=== PATIENT | female | born 1945 | race Caucasian/White ===

== ENCOUNTER 2022-09-09 08:41 | Observation (INO) ==
--- NOTE | 2022-08-14 11:12 | PAT Medication Instructions ---
Medication Instructions Date of Service August 14, 2022 Home Medications atorvastatin 20 mg tablet 20 mg PO QPM carvedilol 12.5 mg tablet 12.5 mg PO Q12H famotidine 10 mg tablet 10 mg PO BID levothyroxine 100 mcg capsule 100 mcg PO QAM multivitamin (Daily Multi-Vitamin tablet) 1 tab PO BID cholecalciferol (vitamin D3) 125 mcg (5,000 unit) tablet (Vitamin D3) 50,000 unit PO MONTHLY propylene glycol 0.6 % eye drops (Systane Complete) 1 drp ophthalmic (eye) QAM simethicone 125 mg capsule (Gas Relief (simethicone)) 125 mg PO BID acetaminophen 500 mg tablet (Tylenol Extra Strength) 500 - 1,000 mg PO Q8H PRN Pain ibuprofen 400 mg tablet 400 mg PO Q6H PRN Pain sennosides 8.6 mg tablet (Senna Laxative) 8.6 mg PO BID Continue as directed cholecalciferol (vitamin D3) 125 mcg (5,000 unit) tablet (Vitamin D3) 50,000 unit PO MONTHLY ASK your surgeon for instructions ibuprofen 400 mg tablet 400 mg PO Q6H PRN Pain DO NOT take the morning of surgery multivitamin (Daily Multi-Vitamin tablet) 1 tab PO BID simethicone 125 mg capsule (Gas Relief (simethicone)) 125 mg PO BID sennosides 8.6 mg tablet (Senna Laxative) 8.6 mg PO BID Take morning of surgery With a small sip of water, OTHERWISE NOTHING TO EAT OR DRINK AFTER MIDNIGHT: carvedilol 12.5 mg tablet 12.5 mg PO Q12H famotidine 10 mg tablet 10 mg PO BID levothyroxine 100 mcg capsule 100 mcg PO QAM propylene glycol 0.6 % eye drops (Systane Complete) 1 drp ophthalmic (eye) QAM acetaminophen 500 mg tablet (Tylenol Extra Strength) 500 - 1,000 mg PO Q8H PRN Pain (if needed) Take evening before surgery atorvastatin 20 mg tablet 20 mg PO QPM carvedilol 12.5 mg tablet 12.5 mg PO Q12H famotidine 10 mg tablet 10 mg PO BID multivitamin (Daily Multi-Vitamin tablet) 1 tab PO BID simethicone 125 mg capsule (Gas Relief (simethicone)) 125 mg PO BID acetaminophen 500 mg tablet (Tylenol Extra Strength) 500 - 1,000 mg PO Q8H PRN Pain (if needed) sennosides 8.6 mg tablet (Senna Laxative) 8.6 mg PO BID Other Notes If you have any questions please call us at [phone] or [phone] or [phone] or [phone]
--- NOTE | 2022-08-20 12:02 | Anesthesiology Consultation ---
Date of Service August 20, 2022 Assessment & Plan (1) Encounter for pre-operative examination: - awaiting PCP clearance. - Outpatient joint assessment: Patient is currently scheduled for inpatient pathway. If re-evaluated pending system levels during current pandemic/surgeon requests outpatient pathway, patient is not acceptable candidate for outpatient joint program from anesthesia standpoint. - Case discussed with Dr. Gay who advised no cardiology clearance needed, however pt is to have PCP clearance. Surgeon's office made aware. Message left for pt to return call. Chart Review Chart Review: Pending: Refer to Additional Notes / Consult section and Patient seen in Pre Admission Testing Teaching & Discussion Pre-Anesthesia Teaching/Discussion Notes: Instructed NPO after midnight before surgery, except medications with 15 cc of water. Medication instructions provided according to the PAT guidelines. History Surgery Operation Date: 09/09/22 07:00 Proposed Procedures p Left Total Knee Arthroplasty - Samuel Mosher MD Height/Weight Height: 5 ft 6 in Weight: 91.626 kg Allergies Allergy/AdvReac Type Severity Reaction Status Date / Time No Known Allergies Allergy Verified 08/05/22 09:45 Medications Home Medications Medication Instructions Recorded Confirmed Last Taken atorvastatin 20 mg tablet 20 mg PO QPM 02/18/21 08/05/22 02/24/22 carvedilol 12.5 mg tablet 12.5 mg PO Q12H 02/18/21 08/05/22 02/24/22 famotidine 10 mg tablet 10 mg PO BID 02/18/21 08/05/22 02/24/22 levothyroxine 100 mcg capsule 100 mcg PO QAM 02/18/21 08/05/22 02/25/22 multivitamin (Daily Multi-Vitamin 1 tab PO BID 02/18/21 08/05/22 02/22/22 tablet) cholecalciferol (vitamin D3) 125 50,000 unit PO MONTHLY 02/18/22 08/05/22 02/24/22 mcg (5,000 unit) tablet (Vitamin D3) propylene glycol 0.6 % eye drops 1 drp ophthalmic (eye) QAM 02/18/22 08/05/22 02/24/22 (Systane Complete) simethicone 125 mg capsule (Gas 125 mg PO BID 02/18/22 08/05/22 02/23/22 Relief (simethicone)) acetaminophen 500 mg tablet 500 - 1,000 mg PO Q8H PRN Pain 08/05/22 08/05/22 Unknown (Tylenol Extra Strength) ibuprofen 400 mg tablet 400 mg PO Q6H PRN Pain 08/05/22 08/05/22 Unknown sennosides 8.6 mg tablet (Senna 8.6 mg PO BID 08/05/22 08/05/22 Unknown Laxative) Past Medical History Medical History (Updated 08/20/22 @ 12:21 by Kathleen Knowles PA-C) GERD (gastroesophageal reflux disease) controlled, stable per pt History of atrial fibrillation "related to thyroid issues"-resolved yrs ago upon thyroid correction per pt, per pt was d/c from cardiology at that time-follows with PCP History of COVID-19 03/2022 > resolved Hyperlipidemia Hypertension controlled, stable per pt-home readings 110-120s/80s; white coat HTN Hypothyroidism Hx thyroid irradiation Neuropathy toes bilat Obesity Patient denies h/o stroke, seizures, heart attack, heart failure, DM, blood clots or blood transfusions. Exercise / Class Metabolic Activity II 4-5 Yardwork/Stairs/Walk up hill (denies chest discomfort or shortness of breath with 1 FOS) Past Family History Family History Mother Liver cancer Colon cancer Diabetes Father Colon cancer Lung cancer Other No family history of adverse response to anesthesia Past Surgical History Surgical History History of appendectomy History of bilateral tubal ligation History of colonoscopy History of thyroid irradiation History of tooth extraction Hx of bilateral cataract extraction Hx of tonsillectomy Hx of wisdom tooth extraction Past Anesthesia History No Hx of Anesthesia Complications and No Family Hx of Anesthesia Complications History of PONV No Hx of PONV and Hx of Motion Sickness Social History Smoking Status: Former smoker tobacco type: cigarettes Do You Dip or Chew Tobacco: No Smoking End Date: 12 YEARS AGO Hx Alcohol Use: Yes alcohol intake frequency: holidays/special occasions only substance use type: does not use Review of Systems Occasional snoring, denies witnessed apneas. Patient denies chest pain, shortness of breath, dyspnea on exertion, fever, chills, cough, wheezing, or palpitations. Physical Exam Vital Signs Vitals BP 150/92 P 64 TEMP 98.3 SP02 99% on RA RESP 17 Physical Full cervical extension range of motion without pain TMD 3.5 finger breadths Mallampati Score 3 Dentition: full upper dentures; denies chipped or loose teeth, caps/crowns, implants or bridges Lungs: normal respiratory effort. Clear throughout to auscultation, no adventitious breath sounds Cardiac: regular rate and rhythm, no murmurs noted Carotid arteries: negative bruit bilat Lab Results Anesthesia Preop Results Results Anesthesia Widget: WBC 8.11 K/ul (4.8-10.8) 08/20/22 Hgb 12.4 g/dl (12.0-16.0) 08/20/22 Hct 35.5 % (34.1-44.9) 08/20/22 Plt 278 K/uL (130-400) 08/20/22 Na 143 mmol/L (136-145) 08/20/22 K 3.6 mmol/L (3.5-5.1) 08/20/22 Cl 110 mmol/L (98-107) H 08/20/22 CO2 25 mmol/L (21-32) 08/20/22 BUN 16 mg/dl (6-23) 08/20/22 Creat 0.81 mg/dl (0.6-1.2) 08/20/22 Glucose Level 162 mg/dl (70-99(Fasting)) H 08/20/22 PT 10.8 Seconds (9.0-12.0) 08/20/22 PTT 24.7 Seconds (21.0-31.0) 08/20/22 INR 1.0 (0.9-1.1) 08/20/22 Blood Type AB Positive 08/20/22 Antibody Screen NEGATIVE 08/20/22 Testing Electrocardiogram Date: 08/20/22 NSR, rate 63 bpm Left axis deviation Non-specific intraventricular conduction block Chest X-Ray Date: 08/20/22 No lines and tubes are seen. Calcified aortic knob is seen. The lungs are clear. No evidence of pleural effusion or pneumothorax. IMPRESSION: No acute chest disease. COVID-19 Risk Screen Screening Information COVID-19 Screen Date: 08/20/22 Exposure 21 Days Family/Household +COVID Last 21 Days: No Exposure 10 Days Any COVID Exposure Last 10 Days: No Symptoms Last 10 Days Experienced COVID Sx Last 10 Days: No + COVID 0-90 Days COVID + in Last 0-90 Days: No
--- NOTE | 2022-09-08 08:38 | History and Physical Report ---
CHIEF COMPLAINT: Bilateral knee pain and discomfort, left side greater than right. HISTORY OF PRESENT ILLNESS: The patient is a 76-year-old female, who now presents for a followup and surgical treatment of her knees. She has got a long history of bilateral knee pain and discomfort, left side a bit worse than right. We have been putting shots in her knees intermittently, which help ed to some degree. This has become less successful. The left knee has been bothering her more than right. On the right side, the shots seem to be still working. The more she is up in her leg, the mo re it hurts. She would like to have her left knee replaced. PAST MEDICAL HISTORY: Past medical history is significant for: 1. Hypertension. 2. Elevated cholesterol. 3. Obesity with a BMI of 33. 4. Hypothyroidism. 5. Gastroesophageal reflux disease. 6. Oral surgery. PAST SURGICAL HISTORY: Includes: 1. Appendectomy. 2. Tubal ligation. 3. Radiation treatment to the thyroid. 4. Cataract surgery. 5. Back surgery. ALLERGIES: None. CURRENT MEDICATIONS: Include: 1. Atorvastatin. 2. Carvedilol. 3. Vitamin D3. 4. Losartan. 5. Famotidine. 6. Levothyroxine. 7. Multivitamin. 8. Naproxen. 9. Systane eye drops. 10. Simethicone. SOCIAL HISTORY: This is a 76-year-old female. She drinks occasional wine. Does not smoke. FAMILY HISTORY: Noncontributory. REVIEW OF SYSTEMS: Negative for diabetes, but does have an elevated blood glucose. Denies any chest pain or shortness of breath. No history of DVT or PE. No known bleeding problems. PHYSICAL EXAMINATION: GENERAL: Shows a pleasant middle-aged female, looks in reasonably good health. HEENT: Benign. NECK: Supple. No lymphadenopathy. LUNGS: Clear to auscultation. HEART: Has a regular rate and rhythm. ABDOMEN: Soft, nontender, and nondistended. EXTREMITIES: Grossly neurovascularly intact except as follows. Examination of both knees revealed the patient walks with a bit of waddling gait. She has got varus alignment to both knees. She is tender over the medial joint line bilaterally. Range of motion is p retty symmetric with near full extension to 125 degrees of flexion. No instability. No particular p ain with hip motion. X-RAYS: X-rays of both knees reveal advanced bilateral medial compartment DJD. She has complete los s of the medial joint space bilaterally. She has got subchondral sclerosis. ASSESSMENT: This is a 76-year-old female with advanced bilateral knee degenerative joint disease. S he has failed conservative treatment. The left knee is bothering her more than right and she would l charu to proceed with surgical treatment. PLAN: We are going to proceed with left knee replacement. The risks and benefits of this procedure were explained to the patient to include, but not limited to DVT, PE, , infection, neurological injury, vascular injury, bleeding problem, pain, limited range of motion, stiffness, failure to relie ve her symptoms, incomplete relief of symptoms, need for further surgery in the future, etc. The pat ient understands and desires to proceed. Informed consent was obtained. The patient does have a history of atrial fibrillation, but thought that this was related to her thyr oid. Since she has been on medicine, her EKG has been in normal sinus rhythm. Her blood glucose is elevated. She is getting cleared by her primary care doctor. We will likely us e some insulin in the perioperative period to manage her blood glucose. Job ID: [id number]
[~2022-09-09 08:41] MED LIST: ACETAMINOPHEN 500 MG TAB PO SCH; BUPIVACAINE 0.25% PF 30 ML VIAL ONE; BUPIVACAINE 0.5 % 5 MG/1 ML PF 10ML VIAL ONE; CeleBREX 200 MG CAP PO SCH; DEXAMETHASONE SOD INJ 4 MG/ML VIAL ONE; EPINEPHrine INJ 1 MG/ML AMP ONE; FAMOTIDINE 20 MG TAB PO SCH; LIDOCAINE 2% MPF LOCAL 5 ML VIAL INFIL ONE; LR 60ML/HR IV SCH; METOCLOPRAMIDE HCL 10 MG TABLET PO SCH; MIDAZOLAM HCL 1 MG/ML 2ML VIAL ONE; ONDANSETRON INJ 2 MG/ML 2 ML VIAL ONE; PROPOFOL IV EMULSION 10 MG/ML 20 ML VIAL IV ONE; TRANEXAMIC ACID 1,000 MG **IV Intra-op IV SCH; ceFAZolin 2000MG 2,000 MG/15 ML SYR IV SCH; fentaNYL citrate PF 100 MCG/2 ML VIAL ONE
--- NOTE | 2022-09-09 08:42 | History & Physical Bridge Note ---
Date of Service September 09, 2022 History & Physical Bridge Note I have examined the patient, reviewed the History & Physical and in the interval since the performance of the History & Physical I have noted the following changes of clinical significance: no changes noted
[2022-09-09] MEDS ORDERED: BUPIVACAINE/EPINEPHRINE 0.25% 1:200,000 30 ML VIAL ONE ×2 (10:36→11:15)
[2022-09-09] MEDS ORDERED: SODIUM CHLORIDE 0.9% PF 50 ML VIAL ONE (10:36)
[2022-09-09] MEDS ORDERED: BUPIVACAINE LIPOSOME 1.3% 266 MG/20 ML VIAL ONE (10:37)
[2022-09-09] MEDS ORDERED: fentaNYL citrate PF 100 MCG/2 ML VIAL IV PRN (11:14)
[2022-09-09] MEDS ORDERED: ONDANSETRON INJ 2 MG/ML 2 ML VIAL IV PRN ×2 (11:14→14:15)
[2022-09-09] MEDS ORDERED: ATROPINE SULFATE 0.1 MG/ML 10ML SYR IV PRN (11:14)
[2022-09-09] MEDS ORDERED: ePHEDrine sulfate 50 MG/ML AMP IV PRN (11:14)
[2022-09-09] MEDS ORDERED: ETOMIDATE 2 MG/ML 20 ML VIAL IV ONE (12:29)
--- NOTE | 2022-09-09 12:45 | Operative Report ---
PG Post Operative Report Pre & Post Diagnosis Operation Date: 09/09/22 10:40 Pre-Op Diagnosis: Left Knee Osteoarthritis Post-Op Diagnosis: Left Knee Osteoarthritis I identified the patient and participated in the time-out.: Yes Procedure Operation Date: 09/09/22 10:40 Actual Procedures p Left Total Knee Arthroplasty, Cemented(Left) - Samuel Mosher MD Surgeon Samuel Mosher MD [employer] David Robert PA-C Estimated Blood Loss 50 Findings Consistent with Post-Op Diagnosis Operative findings reveal advanced left knee DJD. She had extensive grade 4 [id number] disease and eburnation of the entire medial compartment. She had some spotty grade 4 changes to the patellofemoral joint as well as the lateral compartment. Moderate-sized joint effusion. Fixed varus deformity to the knee. Slight flexion contracture. Fluids 1000 cc Specimens Left knee sent for pathology. Drains None Anesthesia Type Spinal MAC Complications none Disposition Accompanied Patient To Recovery: No Indications Patient is 76-year-old fairly active female who is at a 7-year history of increasing bilateral knee pain discomfort. She been through extensive conservative. The patches became less successful. X-rays show a bit bilateral knee arthritis. She elected proceed with left total knee arthroplasty. Description of Procedure Operative implants consist of: 1. Biomet Vanguard size 67.5 left posterior stabilized femoral component. 2. Biomet size 71 tibial tray. 3. 10 mm posterior stabilized polyethylene insert. 4. 31 x 8 all poly patella. The patient was taken to the operating, identified, and placed on the operating table supine position with all contractors were appropriately padded. IV antibiotics by anesthesia team. A spinal anesthetic and adductor canal block had been provided in the holding area. Suarez catheter was placed in sterile fashion. Left doctor was then placed in the left lower extremity then prepped and draped in usual sterile fashion. The left leg was elevated exsanguinated with use of an Esmarch and tourniquet placed at 300 mmHg. An anterior approach the left knee was then performed a longitudinal incision centered over the patella. Sharp dissection was down through subcutaneous tissue down to the extensor mechanism. A medial parapatellar arthrotomy incision was made. Some subperiosteal dissection was carried out medially. The fat pad was resected from the patella tendon. The lateral patellofemoral ligament was released. Patella subluxated laterally and the knee was flexed with the osteophytes taken of distal femur. The ACL and PCL were then released from the distal femur and tibia subluxated anteriorly. The external treatment line was then placed the anterior face of the tibia and adjusted 14 mm medially. Proximal tibial cut was made to move millimeter bone from the most deficient aspect medial tibial plateau. Some osteophytic rights were taken off medial and posterior medially. The tibia sized to a size 71. Attention drawn to the femur. The distal femur 10 with a sharp drill. The intramedullary canal was suction. A 5 degree left distal femoral cutting block was pinned in place. Distal cut was made to take an additional 3 mm of bone off the distal femur. The femur was then sized to a size 67.5. The AP cutting block was pinned parallel to the epicondylar axis which was 5 degrees external rotation. The anterior, anterior chamfer, posterior cut, posterior chamfer cuts were made. The box cutting guide was placed in a just slightly lateral and the box cut was made. The knee was flexed. The remnants of the medial and lateral menisci were excised. The osteoarticular posterior aspect of the femur. A trial femoral component was placed. The tibial tray was pinned in maximum external rotation and the drill and stem punch were used. Defect in the proximal tibia and the tibial tray. The knee was then trialed the 10 mm insert most peripherally. Attention drawn the patella. The patella was cleaned of all soft tissues. Patella thickness measured 23 mm in thickness was cut down to 14. Was sized to a size 31 patella. The lug holes were drilled for 31 patella. The lateral osteophytes removed. Patella button was placed. Knee was taken through range of motion patella tracked nicely with no thumbs test. Tension do not place and permanent components. All trial components were removed. Bone plug was placed in the disc room to limit blood loss. All batch Palacos G cement was mixed. Biomet Vanguard size 67.5 left posterior stabilized femoral component, size 71 tibial tray, 10 mm posterior stabilized polyethylene insert, and a 31 x 8 all-poly patella then cemented in place. Knee was brought out into full extension until cement hardened. Final cement check was then performed. The pericapsular tissues were injected with a total of 100 cc of combination of 20 cc of Exparel, 30 cc normal saline, 50 cc of quarter percent Marcaine with epinephrine. Patient did receive 1 g tranexamic acid. The chart was then let down for final tourniquet time of 55 minutes. Hemostasis reduced electrocautery. The extensor mechanism then closed with a combination of 1 PDS suture and then 1 Vicryl suture in a [id number] fashion. The extensor mechanism checked to be intact with subcutaneous tissue then closed with 2 Dexon suture in a buried interrupted fashion skin was closed skin carlos. Leg was then cleaned and dried and a sterile dressing with Xeroform, 4 fours, sterile cast padding, Forest bandage applied. Patient then transferred to the recovery room in stable condition. The patient tolerated the procedure well and there were no complications. David Robert, my physician assistant food service director, was present for the entire procedure. His assistance was essential and required for appropriate patient positioning, prepping and draping, surgical exposure, performing the technical details of the operation, placement the implants, closure of the wound, and placement of the sterile bandage. I attest to the content of the Intraoperative Record and any orders documented therein. Any exceptions are noted below.
[2022-09-09] MEDS ORDERED: hydrALAZINE HCL 20 MG/ML VIAL ONE (13:37)
[2022-09-09] MEDS ORDERED: hydrALAZINE HCL 20 MG/ML VIAL IV ONE (13:38)
--- NOTE | 2022-09-09 13:51 | Anesthesiology Progress Note ---
Date of Service September 09, 2022 Anesthesia Post Procedure Vital Signs Vital Signs: Temp Pulse Resp BP BP Pulse Ox O2 Del Method 09/09/22 13:20 47 L 14 179/85 H 99 Nasal Cannula 09/09/22 13:10 47 L 13 163/86 H 99 Nasal Cannula 09/09/22 13:00 47 L 14 167/82 H 99 Nasal Cannula 09/09/22 12:50 46 L 12 170/79 H 100 Oxymask 09/09/22 12:41 36.4 C L 53 L 10 L 147/77 H 98 Oxymask 09/09/22 09:10 36.8 C 63 20 190/107 H 96 Room Air O2 Flow Rate 09/09/22 13:20 2 09/09/22 13:10 2 09/09/22 13:00 2 09/09/22 12:50 3 09/09/22 12:41 6 09/09/22 09:10 Transfer of Care Handoff Completed per policy Notes Mental Status: alert / awake / arousable and participated in evaluation Nausea / Vomiting: adequately controlled Pain: adequately controlled Airway Patency, RR, SpO2: stable & adequate BP & HR: stable & adequate Hydration State: stable & adequate Neuraxial Anesthesia: was administered and sensory block is resolving Anesthetic Complications: no major complications apparent and Pt Satisfied with anesthetic care
[2022-09-09] MEDS ORDERED: GLUCAGON FOR INJ 1 MG VIAL SQ PRN (14:15)
[2022-09-09] MEDS ORDERED: METOCLOPRAMIDE HCL INJ 5 MG/ML 2 ML VIAL IV PRN (14:15)
[2022-09-09] MEDS ORDERED: ALUMINUM/MAGNESIUM SUSP 30 ML UDC PO PRN (14:15)
[2022-09-09] MEDS ORDERED: oxyCODONE HCL IR 5 MG TAB (IMMEDIATE RELEASE) PO PRN (14:15)
[2022-09-09] MEDS ORDERED: DEXTROSE 50% 50 ML SYRINGE IV PRN (14:15)
[2022-09-09] MEDS ORDERED: CARBOHYDRATES FOR HYPOGLYCEMIA PO PRN (14:15)
[2022-09-09] MEDS ORDERED: MAGNESIUM HYDROXIDE SUSP 30 ML UDC PO PRN (14:15)
[2022-09-09] MEDS ORDERED: GLUCOSE 10 TAB/TUBE PO PRN (14:15)
[2022-09-09] MEDS ORDERED: GLUCOSE 40% GEL 15 GM TUBE PO PRN (14:15)
[2022-09-09] MEDS ORDERED: bisacodyL 10 MG SUPP PR PRN (14:15)
[2022-09-09] MEDS ORDERED: HYDROmorphone INJ 0.5 MG/0.5 ML SYR IV PRN (14:15)
[2022-09-09] MEDS ORDERED: NALOXONE HCL 0.4 MG/1 ML VIAL/CARP IV PRN (14:15)
[2022-09-09] MEDS ORDERED: PHARMACY GLYCEMIC MGMT CONSULT PRN (14:15)
--- NOTE | 2022-09-09 14:35 | XRay Report ---
XR knee LT 1 or 2V routine CLINICAL HISTORY: Postoperative evaluation. COMPARISON: Knee radiographs February 17, 2022. FINDINGS: Alignment of the total left knee arthroplasty is anatomic. No periprosthetic fracture or u nexpected radiopaque foreign body. There are skin carlos. IMPRESSION: Expected findings following total left knee arthroplasty. ACT 112: Negative or not required by law. Electronically signed by: Emilio Juarez M.D. 09/09/2022 2:33 PM
[2022-09-09] MEDS ORDERED: LANTUS PER UNIT CHARGE SQ ONE (15:30)
[2022-09-09] MEDS: SODIUM CHLORIDE 0.9% 1000ML 1,000 ML IV SCH (16:08)
[2022-09-09] MEDS: ACETAMINOPHEN 500 MG TAB PO SCH ×2 (16:09→21:31)
[2022-09-09] MEDS: carvediloL 12.5 MG TAB PO SCH ×2 (16:09→20:16)
[2022-09-09] MEDS: INSULIN ASPART PER UNIT CHARGE SC SCH ×2 (17:45→20:39)
[2022-09-09] MEDS: ASCORBIC ACID 500 MG TAB PO SCH (17:48)
[2022-09-09] MEDS: ceFAZolin 2000MG 2,000 MG/15 ML SYR IV SCH (17:48)
[2022-09-09] MEDS ORDERED: TRANEXAMIC ACID / 0.7% NACL 1,000 MG/100 ML BAG IV SCH (18:45)
[2022-09-09] MEDS: ASPIRIN 81 MG ECTAB PO SCH (20:14)
[2022-09-09] MEDS: DOCUSATE SODIUM 100 MG CAP PO SCH (20:15)
[2022-09-09] MEDS: FAMOTIDINE 10 MG TABLET PO SCH (20:15)
[2022-09-09] MEDS ORDERED: ATORVASTATIN 20 MG TAB PO SCH (21:00)
[2022-09-09] MEDS ORDERED: NON-FORMULARY MEDICATION (Multivitamin [Daily Multi-Vitamin] tablet) PO SCH (21:00)
[2022-09-09] MEDS ORDERED: SENNA 8.6 MG TAB PO SCH (21:00)
[2022-09-09] MEDS ORDERED: SIMETHICONE 125 MG PO SCH (21:00)
[2022-09-09] MEDS: KETOROLAC TROMETHAMINE 15 MG/ML VIAL IV SCH (21:31)
[2022-09-10] MEDS: SODIUM CHLORIDE 0.9% 1000ML 1,000 ML IV SCH (00:43)
[2022-09-10] MEDS: ceFAZolin 2000MG 2,000 MG/15 ML SYR IV SCH (03:51)
[2022-09-10] MEDS: KETOROLAC TROMETHAMINE 15 MG/ML VIAL IV SCH ×2 (03:51→08:29)
[2022-09-10] MEDS: ACETAMINOPHEN 500 MG TAB PO SCH ×2 (06:06→12:43)
[2022-09-10 06:21] LABS: Hemoglobin 11.5 g/dl (12.0-16.0); Mean Corpuscular Hemoglobin 31.9 pg (25.0-34.0); Mean Corpuscular Hgb Conc 34.8 g/dL (32.0-36.0); Mean Corpuscular Volume 91.4 fL (80.0-100.0); Mean Platelet Volume 9.2 fL (9.4-12.4); Platelet Count 282 K/uL (130-400); RDW Coefficient of Variation 12.1 % (11.5-14.5); RDW Standard Deviation 40.5 fL (36.4-46.3); Red Blood Count 3.61 M/uL (4.20-5.40); White Blood Count 15.41 K/ul (4.8-10.8)
[2022-09-10 06:38] LABS: BUN Creatinine Ratio 19.6 (10-20); Calcium 9.3 mg/dl (8.5-10.1); Creatinine Clr Calc Pharmacy 52.3 ml/min; Est GFR (African American) 61.4 ml/min; Potassium 3.9 mmol/L (3.5-5.1)
[2022-09-10 07:02] LABS: Estimated Average Glucose 134 mg/dl; Hemoglobin A1C 6.3 % (4.5-5.6)
[2022-09-10] MEDS: carvediloL 12.5 MG TAB PO SCH (08:27)
[2022-09-10] MEDS: DOCUSATE SODIUM 100 MG CAP PO SCH (08:27)
[2022-09-10] MEDS: ASCORBIC ACID 500 MG TAB PO SCH (08:27)
[2022-09-10] MEDS: ASPIRIN 81 MG ECTAB PO SCH (08:27)
[2022-09-10] MEDS: FAMOTIDINE 10 MG TABLET PO SCH (08:27)
[2022-09-10] MEDS: INSULIN ASPART PER UNIT CHARGE SC SCH ×2 (08:30→12:17)
[2022-09-10] MEDS ORDERED: LEVOTHYROXINE SODIUM 100 MCG TABLET PO SCH (09:00)
[2022-09-10] MEDS ORDERED: DOCUSATE SODIUM/SENNA 50/8.6MG TAB PO SCH (09:00)
[2022-09-10] MEDS ORDERED: MULTIVITAMIN TAB PO SCH (09:00)
--- NOTE | 2022-09-10 13:17 | Progress Notes ---
SUBJECTIVE: A 76-year-old female postoperative day 1 from a left knee replacement. She is doing pretty well. e denies any significant pain. Therapy went well. No chest pain or shortness of breath. She is hop ing to go home. OBJECTIVE: VITAL SIGNS: Temperature 36.6. Vital signs are stable. GENERAL: Shows a pleasant middle-aged female. She is sitting up in bed, talking to her and looks comfortable. LUNGS: Clear to auscultation. HEART: Regular rate and rhythm. ABDOMEN: Soft, nontender, nondistended. EXTREMITIES: Grossly neurovascularly intact except as follows. Examination of the left leg reveals the dressing to be clean, dry and intact. She can dorsiflex and plantarflex her foot appropriately. She can do a pretty good straight leg raise. LABORATORY DATA: Hemoglobin 11.5. Hematocrit 33.0. White cell count 15.41. ASSESSMENT: A 76-year-old white female postoperative day 1 from a left knee replacement, doing pretty well. Pain is controlled. She is neurologically intact. Knee is working pretty well. She is hoping to go [facility]. PLAN: 1. DVT prophylaxis includes thigh-high TEDs, SCDs, and aspirin twice a day. 2. PT/OT. Weight bear as tolerated. Left total knee protocol. 3. Pain control, doing okay with current pain regimen. 4. Disposition. Plan to discharge to home with some home health likely later today. Job ID: [id number]
--- NOTE | 2022-09-13 07:25 | Discharge Summary ---
Date of Service September 13, 2022 Discharge Data Procedures Performed Operation Date: 09/09/22 10:40 Actual Procedures p Left Total Knee Arthroplasty, Cemented(Left) - Samuel Mosher MD Hospital Course (1) Status post total left knee replacement: This is a 76 year old patient admitted on 09/09/22 and underwent total knee arthroplasty. She tolerated the procedure well and there were no complications. Transferred to the PACU post op and later to the orthopedic floor for further care. She was given ancef for antibiotic prophylaxis. She was also given JERRICA stockings, SCDs, and aspirin for DVT prophylaxis. Hemoglobin, hematocrit, and vital signs were monitored during her hospital stay and remained stable. Did not require any blood transfusions. There were no complications during her hospital stay. By post op day #1 the patient was tolerating a regular diet, pain was reasonably controlled with oral pain medicine, and she was participating in physical therapy. On post op day #1 the patient was discharged home and set up with home health care. She was given printed discharge instructions including prescriptions for extra strength tylenol, aspirin, cefadroxil, ketorolac, zofran, senokot, and oxycodone. Continue physical therapy, weight bearing as tolerated. Continue JERRICA stockings. Follow up approximately 2 weeks post op or sooner if there are problems or concerns. Coding Level of Care Code None Diagnoses Status post total left knee replacement Z96.652
[2022-10-05] MEDS ORDERED: CHOLECALCIFEROL 5,000 UNITS 125 MCG TAB PO SCH (09:00)
== END 2022-09-10 13:50 | disposition home health service (06) ==
LOC: 3E 08:41 → ASU 08:41

== ENCOUNTER 2023-06-30 07:08 | Observation (INO) ==
--- NOTE | 2023-05-29 14:21 | PAT Medication Instructions ---
Medication Instructions Date of Service May 29, 2023 Home Medications Medication Instructions Recorded aspirin 81 mg tablet,delayed 81 mg PO BID 45 days #90 tabs 09/07/22 release (Tami Low Dose Aspirin) ondansetron HCl 4 mg tablet 4 mg PO Q6 PRN nausea #20 tabs 09/07/22 sennosides 8.6 mg-docusate sodium 1 tab-cap PO DAILY #14 tabs 09/07/22 50 mg tablet (Senokot-S) atorvastatin 20 mg tablet 20 mg PO QPM carvedilol 12.5 mg tablet 12.5 mg PO Q12H famotidine 10 mg tablet 10 mg PO BID levothyroxine 100 mcg capsule 100 mcg PO QAM cholecalciferol (vitamin D3) 125 mcg (5,000 unit) tablet (Vitamin D3) 50,000 unit PO propylene glycol 0.6 % eye drops (Systane Complete) 1 drp ophthalmic (eye) QAM PRN simethicone 125 mg capsule (Gas Relief (simethicone)) 125 mg PO BID aspirin 81 mg tablet,delayed release (Tami Low Dose Aspirin) 81 mg PO BID ondansetron HCl 4 mg tablet 4 mg PO Q6 PRN sennosides 8.6 mg-docusate sodium 50 mg tablet (Senokot-S) 1 tab-cap PO DAILY acetaminophen 500 mg capsule 1,000 mg PO TID PRN naproxen sodium 220 mg tablet (Aleve) 440 mg PO BID PRN ASK your surgeon for instructions naproxen sodium 220 mg tablet (Aleve) 440 mg PO BID PRN ASK your prescriber and surgeon aspirin 81 mg tablet,delayed release (Tami Low Dose Aspirin) 81 mg PO BID DO NOT take the morning of surgery cholecalciferol (vitamin D3) 125 mcg (5,000 unit) tablet (Vitamin D3) 50,000 unit PO simethicone 125 mg capsule (Gas Relief (simethicone)) 125 mg PO BID sennosides 8.6 mg-docusate sodium 50 mg tablet (Senokot-S) 1 tab-cap PO DAILY Take morning of surgery With a small sip of water, OTHERWISE NOTHING TO EAT OR DRINK AFTER MIDNIGHT: carvedilol 12.5 mg tablet 12.5 mg PO Q12H famotidine 10 mg tablet 10 mg PO BID levothyroxine 100 mcg capsule 100 mcg PO QAM propylene glycol 0.6 % eye drops (Systane Complete) 1 drp ophthalmic (eye) QAM PRN(if needed) ondansetron HCl 4 mg tablet 4 mg PO Q6 PRN(if needed) acetaminophen 500 mg capsule 1,000 mg PO TID PRN(if needed) Take evening before surgery atorvastatin 20 mg tablet 20 mg PO QPM carvedilol 12.5 mg tablet 12.5 mg PO Q12H famotidine 10 mg tablet 10 mg PO BID simethicone 125 mg capsule (Gas Relief (simethicone)) 125 mg PO BID ondansetron HCl 4 mg tablet 4 mg PO Q6 PRN(if needed) acetaminophen 500 mg capsule 1,000 mg PO TID PRN(if needed) Other Notes If you have any questions please call us at [phone] or [phone] or [phone] or [phone]
--- NOTE | 2023-06-03 10:33 | Anesthesiology Consultation ---
Date of Service June 03, 2023 Assessment & Plan (1) Encounter for pre-operative examination: - Check BSG AM DOS - Infectious disease screening: Per assessment on 06/03/23: No known infectious disease contacts or current infectious disease symptoms. No noted Covid positive test result in past 90 days. - Outpatient joint assessment: Pt currently scheduled for inpatient pathway. If surgeon requests review for outpatient joint pathway, patient is not recommended candidate for outpatient joint program from anesthesia standpoint. - S/P Left TKA (09/09/22): SAB at L3/4 + PNB at [facility]. No issues noted per post-op anesthesia progress note. Chart Review Chart Review: Acceptable Risk for Surgery and Patient seen in Pre Admission Testing Teaching & Discussion Pre-Anesthesia Teaching/Discussion Notes: Instructed NPO after midnight before surgery,except medications with 15 cc of water. Medication instructions provided according to the PAT guidelines. History Surgery Operation Date: 06/30/23 08:50 Proposed Procedures p Right Total Knee Arthroplasty - Samuel Mosher MD Height/Weight Height: 5 ft 5 in Weight: 92.1 kg Allergies Allergy/AdvReac Type Severity Reaction Status Date / Time No Known Allergies Allergy Verified 05/29/23 13:10 Medications Home Medications Medication Instructions Recorded Confirmed Last Taken atorvastatin 20 mg tablet 20 mg PO QPM 02/18/21 05/29/23 09/08/22 22:00 carvedilol 12.5 mg tablet 12.5 mg PO Q12H 02/18/21 05/29/23 09/09/22 07:30 famotidine 10 mg tablet 10 mg PO BID 02/18/21 05/29/23 09/08/22 22:00 levothyroxine 100 mcg capsule 100 mcg PO QAM 02/18/21 05/29/23 09/09/22 07:30 cholecalciferol (vitamin D3) 125 50,000 unit PO Q30D 02/18/22 05/29/23 09/07/22 09:00 mcg (5,000 unit) tablet (Vitamin D3) propylene glycol 0.6 % eye drops 1 drp ophthalmic (eye) QAM PRN Dry 02/18/22 05/29/23 09/09/22 07:30 (Systane Complete) Eyes simethicone 125 mg capsule (Gas 125 mg PO BID 02/18/22 05/29/23 09/09/22 07:30 Relief (simethicone)) aspirin 81 mg tablet,delayed 81 mg PO BID 45 days #90 tabs 09/07/22 05/29/23 Unknown release (Tami Low Dose Aspirin) ondansetron HCl 4 mg tablet 4 mg PO Q6 PRN nausea #20 tabs 09/07/22 05/29/23 Unknown sennosides 8.6 mg-docusate sodium 1 tab-cap PO DAILY #14 tabs 09/07/22 05/29/23 09/08/22 22:00 50 mg tablet (Senokot-S) acetaminophen 500 mg capsule 1,000 mg PO TID PRN Pain 05/29/23 05/29/23 Unknown naproxen sodium 220 mg tablet 440 mg PO BID PRN Pain 05/29/23 05/29/23 Unknown (Aleve) Past Medical History Medical History Elevated hemoglobin A1c A1C 6.3% 09/2022, glucose 169 on 06/03/2023 GERD (gastroesophageal reflux disease) History of atrial fibrillation No issues x years [place] to be thyroid dysfunction at that time (which was corrected) and she was d/c'd from cardiology. No issues since. Patient taking ASA/beta lukas + managed by PCP. History of COVID-19 03/2022 > resolved Hyperlipidemia Hypertension controlled, stable per pt "white coat HTN"- home readings 130s/80s Hypothyroidism Hx thyroid irradiation Neuropathy B/L toes Obesity Exercise / Class Metabolic Activity III < 4 Walking/Shop/Light housework (one FS (no CP, + occasional SOB if knee pain bad at time)) Past Family History Family History Mother Liver cancer Colon cancer Diabetes Father Colon cancer Lung cancer Other No family history of adverse response to anesthesia Past Surgical History Surgical History History of appendectomy History of bilateral tubal ligation History of colonoscopy History of thyroid irradiation History of tooth extraction History of total left knee replacement Left TKA (09/09/22): SAB at L3/4 + PNB at [facility] Hx of bilateral cataract extraction Hx of tonsillectomy Hx of wisdom tooth extraction Past Anesthesia History No Hx of Anesthesia Complications and No Family Hx of Anesthesia Complications History of PONV No Hx of PONV and No Hx of Motion Sickness Social History Smoking Status: Former smoker tobacco type: cigarettes Do You Dip or Chew Tobacco: No Smoking End Date: Age 13-24 + also [id number] Hx Alcohol Use: Yes Alcohol type: wine alcohol intake frequency: holidays/special occasions only Hx Substance Use: No substance use type: does not use Review of Systems Patient denies chest pain, shortness of breath, fever, chills, cough, wheezing, palpitations. Physical Exam Vital Signs VITALS BP 183/92- per patient, significant white coat HTN (monitors BPs closely at home d/t white coat HTN causing increased readings in medical settings. Home BPs typically 130s/80s- patient advised to continue close home monitoring) P 62 TEMP 98.2 SP02 95%RA RESP 18 PHYSICAL Full cervical extension range of motion. Full TMJ range of motion. TMD 2.5 finger breaths (small chin) Mallampati Score 3 Dentition: full upper denture, several missing lower sides/molars Lungs: clear throughout to auscultation Cardiac: regular rate and rhythm, no murmurs noted Spine: normal Carotid arteries: negative bruit Extremities: no LE edema Lab Results Anesthesia Preop Results Results Anesthesia Widget: WBC 7.11 K/ul (4.8-10.8) 06/03/23 Hgb 13.1 g/dl (12.0-16.0) 06/03/23 Hct 37.3 % (37.0-47.0) 06/03/23 Plt 238 K/uL (130-400) 06/03/23 Na 140 mmol/L (136-145) 06/03/23 K 3.6 mmol/L (3.5-5.1) 06/03/23 Cl 109 mmol/L (98-107) H 06/03/23 CO2 20 mmol/L (21-32) L 06/03/23 BUN 13 mg/dl (6-23) 06/03/23 Creat 0.79 mg/dl (0.6-1.2) 06/03/23 Glucose Level 169 mg/dl (70-99(Fasting)) H 06/03/23 PT 10.9 Seconds (9.0-12.0) 06/03/23 PTT 26.7 Seconds (21.0-31.0) 06/03/23 INR 1.0 (0.9-1.1) 06/03/23 Blood Type AB Positive 06/03/23 Antibody Screen NEGATIVE 06/03/23 Testing Electrocardiogram Date: 08/20/22 NSR, rate 63 bpm Left axis deviation Non-specific intraventricular conduction block Chest X-Ray Date: 08/20/22 No lines and tubes are seen. Calcified aortic knob is seen. The lungs are clear. No evidence of pleural effusion or pneumothorax. IMPRESSION: No acute chest disease. Echocardiogram Date: 09/05/22 EF 55-60% Mild cLVH No LV regional wall motion abnormalities No significant valve pathology Grade I diastolic dysfunction
--- NOTE | 2023-06-26 08:23 | History & Physical Report ---
Date of Service June 26, 2023 Assessment & Plan (1) Right knee DJD: 77-year-old female now about 9 months out from left knee replacement advanced right knee DJD. She has failed conservative treatment would like to have her right knee replaced. Plan: Will plan taken the operative right total knee replacement. The risks and benefits of this procedure were explained the patient include but not limited to DVT PE infection neurological injury vascular bleeding palm pain limb range of motion this is fairly her symptoms incomplete relief of symptoms etc. The patient understands and desires to proceed. Informed consent is obtained. She is planned to be discharged home using [facility] home health program. Will use aspirin, thigh-high teds, SCDs for DVT prophylaxis. (2) Status post total left knee replacement: History of Present Illness Chief Complaint: . Persistent, progressive right knee pain discomfort. Primary Care Provider: Tonja Razo DO . Patient is a 77-year-old female who now presents for surgical treatment of her 9 right knee. She has a long history of knee problems and had her left knee replaced 9 months ago. She done well from the side. She continues to be bothered by right knee pain discomfort. Is been to extensive conservative treatment including oral medicines as well as injections. The injections have become less successful. Pains become more debilitating. Pain is increased with weightbearing. She like to have her right knee fixed. Allergies Allergy/AdvReac Type Severity Reaction Status Date / Time No Known Allergies Allergy Verified 05/29/23 13:10 Home Medications Medication Instructions Recorded Confirmed Type atorvastatin 20 mg tablet 20 mg PO QPM 02/18/21 05/29/23 History carvedilol 12.5 mg tablet 12.5 mg PO Q12H 02/18/21 05/29/23 History famotidine 10 mg tablet 10 mg PO BID 02/18/21 05/29/23 History levothyroxine 100 mcg capsule 100 mcg PO QAM 02/18/21 05/29/23 History cholecalciferol (vitamin D3) 125 50,000 unit PO Q30D 02/18/22 05/29/23 History mcg (5,000 unit) tablet (Vitamin D3) propylene glycol 0.6 % eye drops 1 drp ophthalmic (eye) QAM PRN Dry 02/18/22 05/29/23 History (Systane Complete) Eyes simethicone 125 mg capsule (Gas 125 mg PO BID 02/18/22 05/29/23 History Relief (simethicone)) aspirin 81 mg tablet,delayed 81 mg PO BID 45 days #90 tabs 09/07/22 05/29/23 Rx release (Tami Low Dose Aspirin) ondansetron HCl 4 mg tablet 4 mg PO Q6 PRN nausea #20 tabs 09/07/22 05/29/23 Rx sennosides 8.6 mg-docusate sodium 1 tab-cap PO DAILY #14 tabs 09/07/22 05/29/23 Rx 50 mg tablet (Senokot-S) acetaminophen 500 mg capsule 1,000 mg PO TID PRN Pain 05/29/23 05/29/23 History naproxen sodium 220 mg tablet 440 mg PO BID PRN Pain 05/29/23 05/29/23 History (Aleve) Past Med/Surg History Medical History Elevated hemoglobin A1c A1C 6.3% 09/2022, glucose 169 on 06/03/2023 Neuropathy B/L toes Obesity History of atrial fibrillation No issues x years [place] to be thyroid dysfunction at that time (which was corrected) and she was d/c'd from cardiology. No issues since. Patient taking ASA/beta lukas + managed by PCP. History of COVID-19 03/2022 > resolved Hyperlipidemia GERD (gastroesophageal reflux disease) Hypothyroidism Hx thyroid irradiation Hypertension controlled, stable per pt "white coat HTN"- home readings 130s/80s Surgical History History of total left knee replacement Left TKA (09/09/22): SAB at L3/4 + PNB at [facility] History of tooth extraction History of thyroid irradiation History of bilateral tubal ligation History of appendectomy History of colonoscopy Hx of wisdom tooth extraction Hx of tonsillectomy Hx of bilateral cataract extraction Family History Mother Liver cancer Colon cancer Diabetes Father Colon cancer Lung cancer Other No family history of adverse response to anesthesia Social History Smoking Status: Former smoker Tobacco Type: Cigarettes Smoking End Date: Age 13-24 + also [id number]; Second Hand Exposure: No; Do You Dip or Chew Tobacco: No; Tobacco Cessation Education Requested by Patient: No Hx Alcohol Use: Yes Alcohol type: wine Hx Substance Use: No Preferred Language: Mac[place] Communication Ability: Effective Income Auditor Required: No Beliefs That Will Affect Care: None Current Living Situation: Spouse Other Information That Helps Us Care for You: No Feels Safe at Home: Yes Safety Concerns: Feels Safe At This Time Assistive Devices: Denture - Upper Review of Systems All systems reviewed & are unremarkable except as noted in HPI & below. Physical Exam . Physical examination reveals a pleasant middle-age female. Looks in good health. Looks younger than her stated age. Examination of the right knee reveals moderate soft tissue envelope is got varus alignment to her knee. She is tender over the medial joint line. Small knee effusion. Range of motion 5-1 20. No instability. No pain with hip motion. Examination left knee reveals well-healed incision. Knee alignment is anatomic. Minimal swelling. Range of motion 0-1 25. Constitutional WD/WN, vitals as above Neck trachea midline, no thyromegaly Respiratory normal respiratory effort, lungs clear to auscultation Cardiovascular RRR, no murmur, no edema Gastrointestinal (Abdomen) normal bowel sounds, soft, nontender, no hepatosplenomegaly Results & Data Results & Data Laboratory Results . Diagnostic Findings . X-rays of the right knee reveal advanced right knee DJD. She got complete loss of the medial joint space. Subchondral chondral sclerosis medially. Osteophytes medially. The left knee replaced looks to be in good position without problems. PG Care Time/CCT Total # of Minutes Spent Total Time Spent with Patient: Total time spent is greater than 50% in coordination of care (as documented) at patient's floor/unit and/or counseling patient: Coding Level of Care Code None Diagnoses Right knee DJD M17.11 Status post total left knee replacement Z96.652
[~2023-06-30 07:08] MED LIST changes: -BUPIVACAINE 0.25% PF 30 ML VIAL ONE; +BUPIVACAINE LIPOSOME/PF 266 MG, BUPIVACAINE/EPINEPHRINE 50 ML, SODIUM CHLORIDE 0.9% PF ... INFIL SCH; -DEXAMETHASONE SOD INJ 4 MG/ML VIAL ONE; -EPINEPHrine INJ 1 MG/ML AMP ONE; -LIDOCAINE 2% MPF LOCAL 5 ML VIAL INFIL ONE; +LR 500ML BOLUS, THEN 15ML/HR IV SCH; -MIDAZOLAM HCL 1 MG/ML 2ML VIAL ONE; -ONDANSETRON INJ 2 MG/ML 2 ML VIAL ONE; -PROPOFOL IV EMULSION 10 MG/ML 20 ML VIAL IV ONE; +ROPIVACAINE 0.5% 5 MG/ML 30 ML VIAL ONE; +dexAMETHasone**PF** 10 MG/ML VIAL IV SCH; -fentaNYL citrate PF 100 MCG/2 ML VIAL ONE
--- OUTSIDE RECORDS SUMMARY | 2023-06-30 07:30 | External Medical Summary | Continuity of Care Document ---
Author Name Unknown Organization [address] Address [address] [place] [address] [place], [place] [id number] Care Team Providers Care Human Resources Hr Representative Name Role Phone Tonja Vaughan Primary Care rebekah [phone] Encounter [facility] VANESA [phone] Date(s): 03/02/23 - 03/02/[address], [address] [place] [address] [place] [phone] Encounter Diagnosis Body mass index [BMI] 32.0-32.9, adult(Discharge Diagnosis) - 03/02/23 Physical exam(Discharge Diagnosis) - 03/02/23 Hyperlipidemia(Discharge Diagnosis) - 03/02/23 Hypothyroidism(Discharge Diagnosis) - 03/02/23 White coat syndrome with hypertension(Discharge Diagnosis) - 03/02/23 Neuropathy(Discharge Diagnosis) - 03/02/23 Colon polyps(Discharge Diagnosis) - 03/02/23 Prediabetes(Discharge Diagnosis) - 03/02/23 Arthritis of right knee(Discharge Diagnosis) - 03/02/23 Constipation(Discharge Diagnosis) - 03/02/23 Discharge Disposition: Home or Self Care Attending Physician: Leslie Razo DO, Mariana Annette Referring Physician: Leslie Razo DO, Mariana Annette Allergies, Adverse Reactions, Alerts No Known Allergies Assessment and Plan Extracted from: Title:Office Visit Note Author:Leslie Razo DO, Mariana Annette Date:03/02/23 1.Physical exam - encouraged diet and exercise regimen appropriate for patient age and condition - routine dental and eye care per continuity - vaccinations reviewed and up to date per EHR -screening labs ordered -routine mammography encouraged per guidance and history - screening for colon cancerwith colonoscopy ordered 2.Hyperlipidemia STATUS:Chronic stable. DATA:Labs reviewed. GOAL:Maintain stability. PLAN:Check lipids q6mo, cont lipitor 20mg . 3.Hypothyroidism STATUS:Chronic stable. DATA:Labs reviewed. GOAL:Maintain stability. PLAN:Check TSH and T4 yearly, con synthroid 4.White coat syndrome with hypertension STATUS:Chronic stable. DATA:Labs and documentationreviewed. GOAL:Maintain stability. PLAN:cont coreg, cont home BP monitoring, pt aware that if elevated she needs to return for re--evaluation . 5.Neuropathy STATUS:Chronic stable. GOAL:Maintain stability. PLAN:Cont current monitoring. . 6.Prediabetes STATUS:Chronic stable. DATA:Labs reviewed. GOAL:Maintain stability. PLAN:Check A1C Q6mo. . 7.Arthritis of right knee STATUS:Chronic stable. GOAL:Maintain stability. PLAN:cont f/u with orthopedics and home exercise program . 8.Constipation STATUS:Chronic stable. GOAL:Maintain stability. PLAN:Cont senna PRN. . Medications Aleve 220 mg oral capsule Start: 03/02/23 15:00:00 EDT, q12h Start Date: 03/02/23 Status: Ordered Arthrozene Start: 03/02/23 15:01:00 EDT, Arthrozene, 1 tsblet daily Start Date: 03/02/23 Status: Ordered atorvastatin 20 mg oral tablet Start: 03/02/23 15:53:00 EDT, 1 tab, PO, Daily, Disp# 90 tab, Refills: 3, TAKE 1 TABLET BY MOUTH ONCE DAILY AT NIGHT AT BEDTIME, Pharmacy: [id number] Start Date: 03/02/23 Status: Ordered Caltrate 600 + D oral tablet Start: 03/02/23 15:53:00 EDT, 2 tab, PO, Daily, Disp# 180 tab, Refills: 3, Pharmacy: [id number] Start Date: 03/02/23 Status: Ordered carvedilol 12.5 mg oral tablet Start: 03/02/23 15:53:00 EDT, 1 tab, PO, bid, Disp# 180 tab, Refills: 3, Pharmacy: [id number] Start Date: 03/02/23 Status: Ordered D3-50 (50,000 intl units) oral capsule Start: 03/02/23 15:53:00 EDT, 1 cap, PO, qmonth (30 days), Disp# 12 cap, TAKE 1 CAPSULE BY MOUTH ONCE EVERY MONTH, Pharmacy: [id number] Start Date: 03/02/23 Status: Ordered famotidine Start: 09/04/21 14:22:00 EST, 20 mg =, PO, bid Start Date: 09/04/21 Status: Ordered levothyroxine 100 mcg (0.1 mg) oral tablet Start: 03/02/23 15:53:00 EDT, 1 tab, PO, Daily, Disp# 90 tab, Refills: 3, TAKE 1 TABLET BY MOUTH ONCE DAILY, Pharmacy: [id number] Start Date: 03/02/23 Status: Ordered senna 8.6 mg oral tablet Start: 03/02/23 14:58:00 EDT, 1 tab, PO, bid, PRN: as needed for constipation Start Date: 03/02/23 Status: Ordered simethicone 125 mg oral capsule Start: 03/02/23 15:51:00 EDT, 1 cap, PO, qid, Disp# 12 cap, other Start Date: 03/02/23 Status: Ordered Problem List Condition Confirmation Course Effective Dates Status Health St atus Informant Skin lesion Confirmed Active Diagnosis Diagnosis Type Effective Dates Health Status Clinical Service Informant Hyperlipidemia Discharge Diagnosis 03/02/23 Hypothyroidism Discharge Diagnosis 03/02/23 White coat syndrome with hypertension Discharge Diagnosis 03/02/23 Physical exam Discharge Diagnosis 03/02/23 Neuropathy Discharge Diagnosis 03/02/23 Arthritis of right knee Discharge Diagnosis 03/02/23 Constipation Discharge Diagnosis 03/02/23 Body mass index [BMI] 32.0-32.9, adult Discharge Diagnosis 03/02/23 Non-Specified Prediabetes Discharge Diagnosis 03/02/23 Colon polyps Discharge Diagnosis 03/02/23 Non-Specified Procedures Procedure Date Related Diagnosis Body Site Status Colonoscopy 1 11/09/20 Completed APPENDECTOMY Completed Tubal ligation Completed 1COLO to cecum, DC polyp 5 mm CS, Cecum at appendix edema vs polyp biopsied, sigmoid polp 4 mm cold snared. Vital Signs Most recent to oldest [Reference Range]: 1 Height 165.4 cm (03/02/23 3:01 PM) Patient Weight 89.1 kg (03/02/23 3:01 PM) Body Mass Index 32.57 kg/m2 (03/02/23 3:01 PM) Heart Rate 76 bpm (03/02/23 3:01 PM) Respiratory Rate 20 br/min (03/02/23 3:01 PM) Blood Pressure 172/88mmHg (03/02/23 3:01 PM) Social History Social History Type Response Smoking Status Never smoked cigaret ruth Sex Female Primary care Note * Leslie Razo DO, Mariana Annette: PERFORM Event Display: FCM Outpt Note Authored Date: [id number] Chief Complaint est care History of Present Illness 77 yo F with PMH significant for hyperlipidemia, hyperthyroidism s/p radiation with subsequent hypothyroidism, white coat HTN, neuropathy, prediabetes, Previously followed at [facility] - Dr. Karen Wiggins Presents to establish care. 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 - takes carvedilol for this - denies CP, palpitations, dizziness, headaches, blurred vision. Pre-diabetes - per record review. Constipation - patient takes senna every other day with good BMs Knee arthritis - plannin on R knee replacement in the near future, follows with orthopedics - takes arthrozene (herbal supplement) which seems to be helping, also takes naproxen PRN - stays active, swins 3x weekly and goes to gym 2x weekly Patient had been on aspirin after left knee replacement. No history of CAD, can discontinue. Health Maintenance: - Colon CA screening: colonoscopy yearly- last 06/25/22 polyps (serrated adenomatous polyps) - Cervical CA screening: NA - Breast CA screening: normal [id number], scheduled Jul 07 - DEXA scan: 2020 No hospitalizations in the last 12 months nor severe acute injuries not accounted for in chart. Routine dental care without complaint Routine eye care without issue presently,noglasses/contacts Vaccination schedule reviewed in EHR Histories updated and reviewed with patient with changes reflected. Feeling safe at home and in relationships without concern. Review of Systems 10 system ROS completed and negative except as noted above. Physical Exam Vitals & Measurements HR:76(Monitored) RR:20 BP:172/88 SpO2:98% HT:165.4cm WT:89.1kg WT:89.100kg(Dosing) BMI:32.57 General: _Alert and oriented, No acute distress HEENT: _ Normocephalic, TM clear, Nl gross hearing, moist oral mucosa _ Cardiovascular: _Normal rate, Regular rhythm, No murmur, No gallop. Respiratory: _Lungs are clear to auscultation, Respirations are non-labored, Breath sounds are equal Gastrointestinal: _Soft, Non-tender, Non-distended, Normal bowel sounds. Musculoskeletal: _Normal range of motion,normal strength. Neurologic:Normal sensory, Normal motor function, CN II-XII grossly intact. Integumentary: _Warm, Dry, [place]. Psych: Mood-affect congruence. Reports no SI/HI. Speech is of normal pace and content Assessment/Plan 1.Physical exam - encouraged diet and exercise regimen appropriate for patient age and condition - routine dental and eye care per continuity -vaccinations reviewed and up to date per EHR -screening labs ordered -routine mammography encouraged per guidance and history - screening for colon cancerwith colonoscopy ordered 2.Hyperlipidemia STATUS:Chronic stable. DATA:Labs reviewed. GOAL:Maintain stability. PLAN:Check lipids q6mo, cont lipitor 20mg . 3.Hypothyroidism STATUS:Chronic stable. DATA:Labs reviewed. GOAL:Maintain stability. PLAN:Check TSH and T4 yearly, con synthroid 4.White coat syndrome with hypertension STATUS:Chronic stable. DATA:Labs and documentationreviewed. GOAL:Maintain stability. PLAN:cont coreg, cont home BP monitoring, pt aware that if elevated she needs to return for re--evaluation . 5.Neuropathy STATUS:Chronic stable. GOAL:Maintain stability. PLAN:Cont current monitoring. . 6.Prediabetes STATUS:Chronic stable. DATA:Labs reviewed. GOAL:Maintain stability. PLAN:Check A1C Q6mo. . 7.Arthritis of right knee STATUS:Chronic stable. GOAL:Maintain stability. PLAN:cont f/u with orthopedics and home exercise program . 8.Constipation STATUS:Chronic stable. GOAL:Maintain stability. PLAN:Cont senna PRN. . Attestation Time spent: Pre-visit plannin min [id number] visit: 40 min Post-visit (orders/documentation/coordination of care):10 min Total visit time: 60 min Problem List/Past Medical History Ongoing Skin lesion Procedure/Surgical History Colonoscopy (11/09/2020)Tubal ligationAPPENDECTOMY Medications atorvastatin(atorvastatin 20 mg oral tablet), 20 mg= 1 tab, PO, Daily, 3 refills calcium-vitamin D(Caltrate 600 + D oral tablet), 2 tab, PO, Daily, 3 refills carvedilol(carvedilol 12.5 mg oral tablet), 12.5 mg= 1 tab, PO, bid, 3 refills cholecalciferol(D3-50 (50,000 intl units) oral capsule), 1250 mcg= 1 cap, PO, qmonth (30 days) famotidine, 20 mg, PO, bid levothyroxine(levothyroxine 100 mcg (0.1 mg) oral tablet), 100 mcg= 1 tab, PO, Daily, 3 refills naproxen(Aleve 220 mg oral capsule), q12h senna(senna 8.6 mg oral tablet), 8.6 mg= 1 tab, PO, bid, PRN simethicone(simethicone 125 mg oral capsule), 125 mg= 1 cap, PO, qid unknown medication(Arthrozene) Allergies NKA Social History Smoking Status Never smoked cigarettes Recommendations Health Maintenance Pending(in the next year) Due Adult Influenza Vaccine due01/31/23and every 1year Adult COVID-19 Vaccination due03/02/23Unknown Frequency Adult Tdap/Td Vaccine due03/02/23Unknown Frequency Hepatitis C Screening due03/02/23One-time only Medicare Annual Wellness Visit due03/02/23and every 1year Osteoporosis Screening due03/02/23One-time only Pneumococcal Vaccine Older Adults due03/02/23One-time only Shingles Vaccine due03/02/23One-time only Due In Future Body Mass Index not due until03/01/24and every 1year Satisfied(in the past 1 year) Satisfied Body Mass Index on03/02/23.Satisfied by MARY Gama Lori Electronic Signature on File Electronically Reviewed/Signed by: Tonja Razo DO Author Signature Dt/Tm:03/02/2023 05:03 PM Department of Family Medicine [facility] Patient Care team information Care Team Personnel Name: Leslie Razo DO, Mariana Annette Position: Physician - Family Med Member Role: Primary Care Provider Address: Address: [address] [place] [address], [place] [address] [place] Care Team Related Persons Name: LEWIS MAYEN Address: [place] Address: home [address] [place] [address] [place], [place] [phone] Name: LEWIS MAYEN Address: home [address] [place] [address] [place], [place] [id number]
--- OUTSIDE RECORDS SUMMARY | 2023-06-30 07:30 | External Medical Summary | Continuity of Care Document ---
Author Name Unknown Organization [facility] [address] Address [address] [place], [place] [id number] Care Team Providers Care Automobile Rental Agent Name Role Phone Tonja Vaughan Primary Care rebekah [phone] Encounter [facility] [phone] Date(s): 03/06/23 - 03/06/23 [facility] [address] [place], [place] [phone] Encounter Diagnosis Hyperlipidemia, unspecified(Final) - Hypothyroidism, unspecified(Final) - Essential (primary) hypertension(Final) - Polyneuropathy, unspecified(Final) - Discharge Disposition: Home or Self Care Attending Physician: Leslie Razo DO, Mariana Annette Referring Physician: Leslie Razo DO, Mariana Annette Allergies, Adverse Reactions, Alerts No Known Allergies Medications Aleve 220 mg oral capsule Start: 03/02/23 15:00:00 EDT, q12h Start Date: 03/02/23 Status: Ordered Arthrozene Start: 03/02/23 15:01:00 EDT, Arthrozene, 1 tsblet daily Start Date: 03/02/23 Status: Ordered atorvastatin 20 mg oral tablet Start: 03/02/23 15:53:00 EDT, 1 tab, PO, Daily, Disp# 90 tab, Refills: 3, TAKE 1 TABLET BY MOUTH ONCE DAILY AT NIGHT AT BEDTIME, Pharmacy: [facility] Start Date: 03/02/23 Status: Ordered Caltrate 600 + D oral tablet Start: 03/02/23 15:53:00 EDT, 2 tab, PO, Daily, Disp# 180 tab, Refills: 3, Pharmacy: [facility] Start Date: 03/02/23 Status: Ordered carvedilol 12.5 mg oral tablet Start: 03/02/23 15:53:00 EDT, 1 tab, PO, bid, Disp# 180 tab, Refills: 3, Pharmacy: [id number] Start Date: 03/02/23 Status: Ordered D3-50 (50,000 intl units) oral capsule Start: 03/02/23 15:53:00 EDT, 1 cap, PO, qmonth (30 days), Disp# 12 cap, TAKE 1 CAPSULE BY MOUTH ONCE EVERY MONTH, Pharmacy: [facility] Start Date: 03/02/23 Status: Ordered famotidine Start: 09/04/21 14:22:00 EST, 20 mg =, PO, bid Start Date: 09/04/21 Status: Ordered levothyroxine 100 mcg (0.1 mg) oral tablet Start: 03/02/23 15:53:00 EDT, 1 tab, PO, Daily, Disp# 90 tab, Refills: 3, TAKE 1 TABLET BY MOUTH ONCE DAILY, Pharmacy: [facility] Start Date: 03/02/23 Status: Ordered senna [...] St atus Informant Skin lesion Confirmed Active Procedures Procedure Date Related Diagnosis Body Site Status Colonoscopy 1 11/09/20 Completed APPENDECTOMY Completed Tubal ligation Completed 1COLO to cecum, DC polyp 5 mm CS, Cecum at appendix edema vs polyp biopsied, sigmoid polp 4 mm cold snared. Results Laboratory List Name Date Comprehensive Metabolic Panel (COMP META B PANEL) 03/06/23 Lipid Profile (LIPOPROTEINS) 03/06/23 T4, Free (T4, FREE) 03/06/23 Thyroid Stimulating Hormone (TSH) 03/06/23 Most recent to oldest [Reference Range]: 1 eGFR CKD-EPI [>60 mL/min/1.73 m2] 69 mL/ min/1.73 m2 1 (03/06/23 7:38 AM) Non-HDL 98 mg/dL 2 (03/06/23 7:38 AM) Estimated CrCl 59.58 mL/min (03/06/23 8:42 AM) Anion Gap [5-14 mmol/L] 9 mmol/L (03/06/23 7:38 AM) Alb [3.5-5.0 g/dL] 4.2 g/dL (03/06/23 7:38 AM) Alk Phos [38-126 unit/L] 81 unit/L (03/06/23 7:38 AM) ALT [<35 unit/L] 19 unit/L (03/06/23 7:38 AM) AST [15-46 unit/L] 23 unit/L (03/06/23 7:38 AM) BUN [7-20 mg/dL] 10 mg/dL (03/06/23 7:38 AM) Ca [8.4-10.2 mg/dL] 9.1 mg/dL (03/06/23 7:38 AM) Chol/HDL 3 (03/06/23 7:38 AM) Chol [125-200 mg/dL] 154 mg/dL (03/06/23 7:38 AM) Cl- [96-107 mmol/L] 113 mmol/L *HI* (03/06/23 7:38 AM) HCO3 [22-30 mmol/L] 22 mmol/L (03/06/23 7:38 AM) Cret [0.60-1.00 mg/dL] 0.86 mg/dL (03/06/23 7:38 AM) Glu [74-106 mg/dL] 129 mg/dL *HI* (03/06/23 7:38 AM) HDL [>35 mg/dL] 56 mg/dL (03/06/23 7:38 AM) K [3.5-5.1 mmol/L] 3.8 mmol/L (03/06/23 7:38 AM) LDL Chol, Calculated [50-130 mg/dL] 65 m g/dL (03/06/23 7:38 AM) Na [137-145 mmol/L] 144 mmol/L (03/06/23 7:38 AM) Free T4 [0.70-1.48 ng/dL] 1.03 ng/dL 3 (03/06/23 7:38 AM) T Bili [0.2-1.3 mg/dL] 0.8 mg/dL (03/06/23 7:38 AM) Prot [6.3-8.2 g/dL] 6.8 g/dL (03/06/23 7:38 AM) TG [<200 mg/dL] 163 mg/dL (03/06/23 7:38 AM) TSH [0.47-4.68 uIU/mL] 1.59 uIU/mL 4 (03/06/23 7:38 AM) 1Result Comment: Testing Performed By: Dept of Pathology [facility] Marina Yeboah, [address] [place], [place] [address]ner [place] [address] 2Result Comment: Testing Performed By: Dept of Pathology [facility] Marina Yeboah, [address] [place] [address] [place] [address] 3Result Comment: Testing Performed By: Dept of Pathology [facility] Marina Yeboah, [facility] [place] [address] 4Result Comment: Testing Performed By: Dept of Pathology [facility] Marina Yeboah, [address] [place], [place] [address] [address] Social History Social History Type Response Smoking Status Never smoked cigaret ruth Sex Female Patient Care team information Care Team Personnel Name: Leslie Razo DO, Mariana Annette Position: Physician - Family Med Member Role: Primary Care Provider Address: Address: [address] [place] [address], [place] [address] [place] Care Team Related Persons Name: LEWIS MAYEN Address: [place] Address: home [address] [place] [address], [place] [phone] Name: LEWIS MAYEN Address: [address], [place] [id number]
[2023-06-30] MEDS ORDERED: MIDAZOLAM HCL 1 MG/ML 2ML VIAL ONE (07:45)
[2023-06-30] MEDS ORDERED: ONDANSETRON INJ 2 MG/ML 2 ML VIAL ONE (07:46)
[2023-06-30] MEDS ORDERED: PROPOFOL IV EMULSION 10 MG/ML 100 ML VIAL IV ONE (07:46)
[2023-06-30] MEDS ORDERED: LIDOCAINE 2% 2 ML VIAL/AMP(20MG/ML) INFIL ONE (07:46)
[2023-06-30] MEDS ORDERED: KETOROLAC 30 MG/ML VIAL ONE (07:46)
[2023-06-30] MEDS ORDERED: ONDANSETRON INJ 2 MG/ML 2 ML VIAL IV PRN ×2 (08:03→13:40)
[2023-06-30] MEDS ORDERED: fentaNYL citrate PF 100 MCG/2 ML VIAL IV PRN (08:03)
[2023-06-30] MEDS ORDERED: ePHEDrine sulfate 50 MG/ML AMP IV PRN (08:03)
[2023-06-30] MEDS ORDERED: ATROPINE SULFATE 0.1 MG/ML 10ML SYR IV PRN (08:03)
[2023-06-30] MEDS ORDERED: ePHEDrine sulfate 50 MG/ML AMP ONE (08:09)
[2023-06-30] MEDS ORDERED: SODIUM CHLORIDE 0.9% PF INJ 10 ML VIAL ONE (08:09)
--- NOTE | 2023-06-30 08:57 | History & Physical Bridge Note ---
Date of Service June 30, 2023 History & Physical Bridge Note I have examined the patient, reviewed the History & Physical and in the interval since the performance of the History & Physical I have noted the following changes of clinical significance: no changes noted
[2023-06-30] MEDS ORDERED: BUPIVACAINE LIPOSOME 1.3% 266 MG/20 ML VIAL ONE (09:11)
[2023-06-30] MEDS ORDERED: BUPIVACAINE/EPINEPHRINE 0.25% 1:200,000 30 ML VIAL ONE (09:11)
[2023-06-30] MEDS ORDERED: SODIUM CHLORIDE 0.9% PF 50 ML VIAL ONE (09:11)
--- NOTE | 2023-06-30 11:22 | Operative Report ---
PG Post Operative Report Pre & Post Diagnosis Operation Date: 06/30/23 08:50 Pre-Op Diagnosis: Right Knee Advanced Degenerative Joint Disease Post-Op Diagnosis: Right Knee Advanced Degenerative Joint Disease I identified the patient and participated in the time-out.: Yes Procedure Operation Date: 06/30/23 08:50 Actual Procedures p Right Total Knee Arthroplasty(Right) - Samuel Mosher MD Surgeon Samuel Mosher MD Store Leader David Robert PA-C Estimated Blood Loss 50 Findings Consistent with Post-Op Diagnosis Operative findings were advanced right knee DJD. She had grade 4 [id number] disease in all 3 compartments most severe in the medial side. She had extensive eburnation and osteophytes medially. Moderate-sized joint effusion. Specimens Right knee sent for pathology. Anesthesia Type Spinal MAC Complications none Disposition Accompanied Patient To Recovery: No Indications Patient is a 77-year-old female is had a long history of bilateral knee pain discomfort is gradually gotten worse over time. She been through extensive conservative treatment which became less successful. She had her left knee replaced in back in September and is done remarkably well from this. Continued be limited by right knee pain discomfort stiffness. She elected proceed with right total knee arthroplasty. Description of Procedure Operative implants consist of: 1 Biomet Vanguard size 70 right posterior stabilized femoral component. 2. Biomet size 71 tibial tray. 3. 14 mm posterior stabilized polyethylene insert. 4. 31 x 8 all poly patella. The patient was taken the operating, identified, and placed on the operating table in the supine position. All contact areas were appropriately padded. IV antibiotics arrived by the anesthesia team. A spinal anesthetic and adductor canal block had been provided in the holding area. A Suarez catheter was placed in sterile fashion. Right Tetrick was then placed in the right lower extremities then prepped and draped in usual sterile fashion. The right leg was elevated exsanguinated with use of an Esmarch and the tourniquet was placed at 300 mmHg. An anterior approach the right knee was then performed to longitudinal incision centered over the patella. Sharp dissection was carried through subcutaneous tissue down the extensor mechanism. A medial parapatellar arthrotomy incision was made. Some subperiosteal dissection was carried out medially. The fat pad was resected from Neath patella tendon. Lateral patellofemoral ligament was released. Patella subluxated laterally knee was flexed. The osteophytes were taken on distal femur. The ACL and PCL were then released from distal femur and the tibia subluxated anteriorly. The external tibial alignment jig was then placed in the interface the tibia and adjusted 14 mm medially. Proximal tibial cut was made removed by millimeter bone from the most deficient aspect the medial tibial plateau. Some osteophytes to medial and posterior medially. The tibia sized to a size 71. Attention drawn the femur. The distal femur examined the sharp drill. Intramedullary canal was suction. A right 5 degree valgus cutting guide was placed. Distal femoral cutting block was pinned in place. Distal femoral cut was made to take an additional 3 mm of bone off distal femur. Femur was then sized to a size 70. We downsize this almost the entire size due to the relatively narrow or medial and lateral dimensions of the femur. The AP cutting block was pinned parallel to the epicondylar axis which was 4 degrees of external rotation. Anterior cut, anterior chamfer, posterior cut, posterior chamfer cuts were made. The box cutting guide was placed in just slight lateral box cut was made. The knee was flexed. The remnants of the medial and lateral menisci were excised. The osteophytes taken off the posterior aspect the femur. Trial femoral component was placed. The tibial tray was pinned in maximum external rotation and the drill and stem punch were used to create defect in proximal tibia for the tibial tray. The knee was then trialed and the 14 mm insert fit most appropriately. Attention drawn the patella. The patella was cleaned of all soft tissue. Patella thickness measured 23 mm in thickness was cut down to 13. Was sized to a size 31 patella. The lug holes were drilled for 31 patella. Lateral osteophytes removed. Patella button was placed. Knee was taken through range of motion and the patella tracked nicely with no thumbs test. Attention drawn to place the permanent components. Nupathe all trial components were removed. Bone plug was placed in the distal femur limit blood loss. A double batch Palacos G cement was mixed. Biomet Vanguard size 70 right posterior by femoral component, size 71 tibial tray, 14 mm posterior stabilized polyethylene insert, and a 31 x 8 all poly patella then cemented in place. The knee was brought out into full extension till cement hardened. Final cement check was then performed. Pericapsular tissues were injected with total 100 cc of combination of 20 cc of Exparel, 30 cc normal saline, 50 cc of quarter percent Marcaine with epinephrine. Patient did receive 1 g tranexamic acid. The tourniquet was then let down for final tourniquet time 56 minutes. Hemostasis reduced electrocautery. Extensor Meclomen closed with combination 1 PDS suture #1 Vicryl suture in a [id number] fashion. Extensor mechanism checked found to be intact and subcutaneous tissues then closed with 2 Dexon suture in a buried interrupted fashion skin was closed skin carlos. Leg was then cleaned and dried and sterile dressing was Xeroform, 4 fours, sterile cast padding, Forest bandage were applied. Patient then transferred to the recovery room in stable condition. Patient tolerated procedure well and there were no complications. David Robert, my physician library media assistant, was present for the entire procedure. His assistance was essential and required for appropriate patient positioning, prepping and draping, surgical exposure, performing the technical details of the operation, placement the implants, closure of the wound, and placement of the sterile bandage. I attest to the content of the Intraoperative Record and any orders documented therein. Any exceptions are noted below.
--- NOTE | 2023-06-30 12:08 | XRay Report ---
TWO VIEWS LEFT KNEE CLINICAL HISTORY: Postoperative examination. FINDINGS: AP and crosstable lateral portable views of the left knee are obtained. A left knee arthrop lasty is in near anatomic alignment. There has been undersurface remodeling of the patella. No acute fracture is seen. There are expected postoperative changes around the knee including skin clips, soft tissue edema, and subcutaneous gas. There is atherosclerotic calcification of the popliteal artery. IMPRESSION: Expected postoperative changes status post left knee arthroplasty. No acute fracture is s een. ACT 112: Negative or not required by law. Electronically signed by: Gagandeep Nails M.D. 06/30/2023 12:06 PM
--- NOTE | 2023-06-30 12:53 | Anesthesiology Progress Note ---
Date of Service June 30, 2023 Anesthesia Post Procedure Vital Signs Vital Signs: Temp Pulse Pulse Resp BP Pulse Ox O2 Del Method 06/30/23 12:45 60 16 128/80 93 Nasal Cannula 06/30/23 12:35 59 L 16 152/87 H 96 Nasal Cannula 06/30/23 12:25 97.5 F L 54 L 15 165/85 H 98 Nasal Cannula 06/30/23 12:15 57 L 14 175/82 H 98 Nasal Cannula 06/30/23 12:05 57 L 15 165/83 H 96 Nasal Cannula 06/30/23 11:55 70 16 149/77 H 96 Nasal Cannula 06/30/23 11:45 58 L 15 152/79 H 97 Oxymask 06/30/23 11:35 59 L 15 157/79 H 97 Oxymask 06/30/23 11:25 62 14 153/85 H 98 Oxymask 06/30/23 11:16 97.3 F L 63 16 143/76 H 94 Oxymask 06/30/23 07:38 97.9 F 64 21 193/97 H 96 Room Air O2 Flow Rate 06/30/23 12:45 2 06/30/23 12:35 2 06/30/23 12:25 3 06/30/23 12:15 3 06/30/23 12:05 3 06/30/23 11:55 3 06/30/23 11:45 3 06/30/23 11:35 3 06/30/23 11:25 7 06/30/23 11:16 7 06/30/23 07:38 Pain Intensity Right Knee: Pain Intensity: 0 Transfer of Care Handoff Completed per policy Notes Mental Status: alert / awake / arousable and participated in evaluation Patient Amnestic to Procedure: Yes Nausea / Vomiting: adequately controlled Pain: adequately controlled Airway Patency, RR, SpO2: stable & adequate BP & HR: stable & adequate Hydration State: stable & adequate Neuraxial Anesthesia: was administered and sensory block is resolving Anesthetic Complications: no major complications apparent and Pt Satisfied with anesthetic care
[2023-06-30] MEDS ORDERED: METOCLOPRAMIDE HCL INJ 5 MG/ML 2 ML VIAL IV PRN (13:40)
[2023-06-30] MEDS ORDERED: NALOXONE HCL 0.4 MG/1 ML VIAL/CARP IV PRN (13:40)
[2023-06-30] MEDS ORDERED: bisacodyL 10 MG SUPP PR PRN (13:40)
[2023-06-30] MEDS ORDERED: ALUMINUM/MAGNESIUM SUSP 30 ML UDC PO PRN (13:40)
[2023-06-30] MEDS ORDERED: HYDROmorphone INJ 0.5 MG/0.5 ML SYR IV PRN (13:40)
[2023-06-30] MEDS ORDERED: MAGNESIUM HYDROXIDE SUSP 30 ML UDC PO PRN (13:40)
[2023-06-30] MEDS ORDERED: ARTIFICIAL TEARS OP PRN (14:03)
[2023-06-30] MEDS: SODIUM CHLORIDE 0.9% 1,000 ML IV SCH (14:26)
[2023-06-30] MEDS: ACETAMINOPHEN 500 MG TAB PO SCH (15:07)
[2023-06-30] MEDS: KETOROLAC TROMETHAMINE 15 MG/ML VIAL IV SCH ×2 (15:07→21:19)
[2023-06-30] MEDS ORDERED: TRANEXAMIC ACID / 0.7% NACL 1,000 MG/100 ML BAG IV SCH (17:30)
[2023-06-30] MEDS: ASCORBIC ACID 500 MG TAB PO SCH (18:05)
[2023-06-30] MEDS: ceFAZolin 2000MG 2,000 MG/15 ML SYR IV SCH (18:37)
[2023-06-30] MEDS: DOCUSATE SODIUM 100 MG CAP PO SCH (20:16)
[2023-06-30] MEDS: oxyCODONE HCL IR 5 MG TAB (IMMEDIATE RELEASE) PO PRN (20:16)
[2023-06-30] MEDS: carvediloL 12.5 MG TAB PO SCH (20:17)
[2023-06-30] MEDS: FAMOTIDINE 10 MG TABLET PO SCH (20:19)
[2023-06-30] MEDS: SIMETHICONE 80 MG CHEW PO SCH (20:19)
[2023-06-30] MEDS ORDERED: ATORVASTATIN 20 MG TAB PO SCH (21:00)
[2023-06-30] MEDS ORDERED: ASPIRIN 81 MG ECTAB PO SCH (21:00)
[2023-06-30] MEDS ORDERED: SENNA 8.6 MG TAB PO SCH ×2 (21:00)
[2023-06-30] MEDS: ASPIRIN 81 MG ECTAB PO SCH (21:19)
[2023-07-01] MEDS: SODIUM CHLORIDE 0.9% 1,000 ML IV SCH (01:28)
[2023-07-01] MEDS: ACETAMINOPHEN 500 MG TAB PO SCH ×2 (01:29→07:51)
[2023-07-01] MEDS: ceFAZolin 2000MG 2,000 MG/15 ML SYR IV SCH (01:30)
[2023-07-01 03:37] VITALS: TEMP 97.5
[2023-07-01] MEDS: KETOROLAC TROMETHAMINE 15 MG/ML VIAL IV SCH ×2 (05:13→11:02)
[2023-07-01] MEDS ORDERED: LEVOTHYROXINE SODIUM 100 MCG TABLET PO SCH (06:30)
[2023-07-01 07:32] LABS: Hematocrit (blood only) 33.4 % (37.0-47.0); Hemoglobin 11.4 g/dl (12.0-16.0); Mean Corpuscular Hemoglobin 30.8 pg (25.0-34.0); Mean Corpuscular Hgb Conc 34.1 g/dL (32.0-36.0); Mean Corpuscular Volume 90.3 fL (80.0-100.0); Mean Platelet Volume 9.2 fL (9.4-12.4); Platelet Count 242 K/uL (130-400); RDW Coefficient of Variation 12.5 % (11.5-14.5); White Blood Count 14.04 K/ul (4.8-10.8)
[2023-07-01] MEDS: oxyCODONE HCL IR 5 MG TAB (IMMEDIATE RELEASE) PO PRN (07:47)
[2023-07-01 07:53] LABS: BUN Creatinine Ratio 18.6 (10-20); Creatinine Clr Calc Pharmacy 60.4 ml/min; Est GFR (Non-African American) 64.7 ml/min; Potassium 4.1 mmol/L (3.5-5.1)
[2023-07-01] MEDS ORDERED: dexAMETHasone 10 MG in SYRINGE 0 ML IV SCH (08:00)
[2023-07-01] MEDS ORDERED: MULTIVITAMIN TAB PO SCH (09:00)
[2023-07-01] MEDS: carvediloL 12.5 MG TAB PO SCH (09:08)
[2023-07-01] MEDS: ASPIRIN 81 MG ECTAB PO SCH ×2 (09:08→09:23)
[2023-07-01] MEDS: FAMOTIDINE 10 MG TABLET PO SCH (09:08)
[2023-07-01] MEDS: ASCORBIC ACID 500 MG TAB PO SCH (09:09)
[2023-07-01] MEDS: SIMETHICONE 80 MG CHEW PO SCH (09:09)
[2023-07-01 09:36] VITALS: BP 170/81; PULSE 61; RESP 20; O2SAT 96
[2023-07-01] MEDS: DOCUSATE SODIUM 100 MG CAP PO SCH (11:01)
--- NOTE | 2023-07-01 11:55 | Orthopedic Progress Note ---
Date of Service July 01, 2023 Assessment & Plan (1) Status post right knee replacement: Overall she is doing very well today with good pain control to the right knee. She was seen by physical therapy today and did ambulation and range of motion exercises well with them. She is on aspirin for DVT prophylaxis. She can be discharged home later today. She will follow-up with orthopedics in 2 weeks for postoperative care. Subjective . Gely was seen and evaluated bedside this morning. Overall she is doing very well with much improved pain to the right knee compared to preoperatively. She notes that she has worked with physical therapy and Occupational Therapy and did very well with them. She notes that her pain is well-controlled. She denies any other concerns at this point. Review of Systems All systems reviewed & are unremarkable except as noted in HPI & below. Physical Exam . On physical examination of the right knee, dressings are clean, dry, and intact. Leg is out in full extension. Active plantarflexion and dorsiflexion of the right ankle. +2 DP and PT pulses. Less than 2-second capillary refill. Normal sensation. Neurovascular intact. Results & Data Results & Data Laboratory Results . Diagnostic Findings . Postoperative x-rays of the right knee showed prosthesis to be in anatomical alignment with no evidence of fracture complication or loosening. PG Care Time/CCT Total # of Minutes Spent Total Time Spent with Patient: Total time spent is greater than 50% in coordination of care (as documented) at patient's floor/unit and/or counseling patient: Coding Level of Care Code 48360 Post Operative Follow-Up Diagnoses Status post right knee replacement Z96.651
--- NOTE | 2023-07-01 11:57 | Discharge Summary ---
Date of Service July 01, 2023 Admission HPI (Per Admitting) . Patient is a 77-year-old female who now presents for surgical treatment of her 9 right knee. She has a long history of knee problems and had her left knee replaced 9 months ago. She done well from the side. She continues to be bothered by right knee pain discomfort. Is been to extensive conservative treatment including oral medicines as well as injections. The injections have become less successful. Pains become more debilitating. Pain is increased with weightbearing. She like to have her right knee fixed. Admission Exam (Per Admitting) . Physical examination reveals a pleasant middle-age female. Looks in good health. Looks younger than her stated age. Examination of the right knee reveals moderate soft tissue envelope is got varus alignment to her knee. She is tender over the medial joint line. Small knee effusion. Range of motion 5-1 20. No instability. No pain with hip motion. Examination left knee reveals well-healed incision. Knee alignment is anatomic. Minimal swelling. Range of motion 0-1 25. Principal Diagnosis Same as "Discharge Diagnosis" noted below under Discharge Instructions. Discharge Exam . On physical examination of the right knee, dressings are clean, dry, and intact. Leg is out in full extension. Active plantarflexion and dorsiflexion of the right ankle. +2 DP and PT pulses. Less than 2-second capillary refill. Normal sensation. Neurovascular intact. Discharge Data Procedures Performed Operation Date: 06/30/23 08:50 Actual Procedures p Right Total Knee Arthroplasty(Right) - Samuel Mosher MD Ordered Studies 06/30/23 05:00 US - OR guided needle placemen Routine Hospital Course (1) Status post right knee replacement: On June 30, 2023 Gely arrived at [facility] and underwent a right knee replacement without complications. She had a spinal anesthetic. Postoperatively, she was started on aspirin for DVT prophylaxis and transferred to the general orthopedic floor in stable condition. Her hospital course was uneventful. On postoperative day #1, her vital signs were stable and her pain was well-controlled. She was able to participate well with physical therapy doing ambulation and range of motion exercises. She was then discharged home. She will follow-up with orthopedics in 2 weeks for postoperative care. PG Care Time/CCT Total # of Minutes Spent Total Time Spent with Patient: Total time spent is greater than 50% in coordination of care (as documented) at patient's floor/unit and/or counseling patient: Discharge Plan Discharge Items Patient Disposition: Home - Home Health Services Reason For Visit: RIGHT KNEE REPLACEMENT Discharge Diagnosis: Right Knee replacement Activity: Per Instructions section Weightbearing: Full weightbearing Non-emergency contact: Surgeon Call non-emergency contact if: you have any medication questions Follow-up/Referrals: Tonja Vaughan DO [Primary Care Provider] - Diet: Regular Addtl Attending Provider Instructions: ACTIVITY RECOMMENDATIONS: Physical Therapy: * You will go to physical therapy three times each week for four to six weeks after your surgery in order to regain your knee range of motion and to retrain your knee to work properly. * It is just as important to make sure you are getting your knee perfectly straight as it is to regain your knee bend. * Taking a pain pill an hour before therapy can help you have a more productive and comfortable therapy session. Home Exercise: * You were shown a series of exercises (heel props, heel slides, etc.) in the hospital. Do these exercises three to four times each day including the exercises you were shown in physical therapy. Walking: * Get up and walk several times each day. For the first four weeks, try not to stand or walk for more than one hour at a time. If you do stand or walk for more than one hour, you will not hurt anything, but your knee and leg will likely swell. * As you feel comfortable, you may change from the walker or crutches to a cane and then to independent walking. MEDICATIONS: New Medicine: * You will likely be taking one or more of these medications: 1. Oxycodone - A quick and shorter-acting pain medication. Take one to two tablets every six hours to lessen your pain. 2. Aspirin - Thins your blood to lessen the chance of forming a blood clot. * The most common side effects of pain medicine and iron are nausea and constipation. If nausea or constipation is too much of a problem or if you have any questions about your new medicines or doses, call [facility] at . We will try to help you manage these issues. "VERY IMPORTANT TO READ AND REVIEW" Pain: * The immediate post-operative period after knee replacement surgery is often quite painful. * You are given a prescription for pain medicine. You should take it, as direc jerrica, when you need it, especially before physical therapy and before going to bed. Pain that interferes with sleep is very common and can last several months. * You will likely need pain medicine for the first four to six weeks. It will not stop all of the pain. The pain will lessen and as you feel better, you may change to milder pain medicine such as Tylenol. * The most common side effects of pain medicine are nausea and constipation, so don't take more than you need. SPECIAL CARE INSTRUCTIONS: TEDs/Elastic Stockings: * The white elastic stockings help limit swelling and prevent blood clots from forming in your legs. The more you wear them, the more they work. * Wear them for six weeks after knee replacement surgery and four weeks after partial knee replacement. Incision Site Care: * Remove dressing postoperative day 2 and then shower. Keep direct shower pressure off the incision site. * After showering, cover carlos with dry gauze and change daily or more frequently if the dressing is getting saturated with drainage. * Use the JERRICA stockings to hold dressing in place. DO NOT apply tape on the skin. * May completely stop using bandage if wound is dry and no drainage * Townsend are removed between 2 and 3 weeks post-op. If your follow-up appointment is made before 2 weeks, please have your appointment re- scheduled. It is too early to remove the carlos. Prevention of Infection: * Take antibiotics one hour before any dental cleaning, dental work, urological procedure, gastrointestinal procedure or any invasive surgery in order to prevent your new joint from getting infected. * You may get the antibiotics from the doctor performing the procedure or you may call our office at [phone] before and we will call in a prescription to the pharmacy of your choice. Things to Watch For: * Drainage from the incision site that occurs more than one week after your surgery. * Severely increased knee/leg pain or swelling. * Increased redness at the incision site. * Fever above 102 degrees Fahrenheit. * Unusual chest pain or shortness of breath. * Unusual pain or burning with urination. Call [facility] at [phone] with any of the above problems or if you have any questions about your medicines or recovery. FOLLOW UP VISIT: Make an appointment to see your doctor for approximately two weeks after surgery for a progress check and staple removal by calling the office at [phone]. Pending Studies at Discharge: No Stand-Alone Forms: My [facility], Smoking Cessation Medications and DC Order Prescriptions: Continued ondansetron HCl 4 mg tablet 4 mg PO Q6 PRN (Reason: nausea) Qty: 20 1RF Patient Comments: for post-op only; did not use after last sx. Rx Instructions: post op as needed aspirin [Tami Low Dose Aspirin] 81 mg tablet,delayed release (DR/EC) 81 mg PO BID 45 Days Qty: 90 0RF Patient Comments: will be used for post op Rx Instructions: Take top prevent blood clots. sennosides-docusate sodium [Senokot-S] 8.6-50 mg tablet 1 tab-cap PO DAILY Qty: 14 0RF Rx Instructions: Take daily to prevent constipation oxycodone 5 mg tablet 5 - 10 mg PO Q6 PRN (Reason: pain) Qty: 40 0RF Rx Instructions: Take as needed for pain. Do not take more than 6 tablets per day ondansetron 4 mg tablet,disintegrating 4 mg PO Q8 PRN (Reason: nausea) Qty: 20 1RF Rx Instructions: Take as needed for nausea ketorolac 10 mg tablet 10 mg PO TID 5 Days Qty: 15 0RF Rx Instructions: Take 3 times per day with food for 5 days to lessen pain and swelling. sennosides [Senokot] 8.6 mg tablet 8.6 mg PO BID 14 Days Qty: 28 0RF Rx Instructions: Take two times a day to prevent/treat constipation acetaminophen [Tylenol Extra Strength] 500 mg tablet 1,000 mg PO TID 30 Days Qty: 180 0RF Rx Instructions: Take 3 times per day to lessen pain. aspirin [Tami Low Dose Aspirin] 81 mg tablet,delayed release (DR/EC) 81 mg PO BID 45 Days Qty: 90 0RF Rx Instructions: Take to prevent blood clots. cefadroxil 500 mg capsule 500 mg PO BID 7 Days Qty: 14 0RF Rx Instructions: Take 1 cap twice a day to prevent infection famotidine 10 mg tablet 10 mg PO BID carvedilol 12.5 mg tablet 12.5 mg PO Q12H Rx Instructions: must administer with a meal/food atorvastatin 20 mg tablet 20 mg PO QPM levothyroxine 100 mcg capsule 100 mcg PO QAM simethicone [Gas Relief (simethicone)] 125 mg Capsule 125 mg PO BID cholecalciferol (vitamin D3) [Vitamin D3] 125 mcg (5,000 unit) Tablet 50,000 unit PO Q30D Systane Complete 0.6 % Drops 1 drp ophthalmic (eye) QAM PRN (Reason: Dry Eyes) Discontinued acetaminophen 500 mg capsule 1,000 mg PO TID PRN (Reason: Pain) Rx Instructions: Take 3 times per day to lessen pain. naproxen sodium [Aleve] 220 mg Tablet 440 mg PO BID PRN (Reason: Pain) Admission Data Admit Date/Time: 06/30/23 11:21 Attending Provider: Samuel Mosher Admit Provider: Samuel Mosher Primary Care Provider: Tonja Vaughan Other Providers: [facility],Home Health
[2023-07-07] MEDS ORDERED: ERGOCALCIFEROL 50,000 UNITS 1250 MCG CAP PO SCH (09:00)
== END 2023-07-01 13:38 | disposition home health service (06) ==
LOC: ASU 07:08 → PACUINP 07:08 → 3W 14:18
DX: I10 Essential (primary) hypertension; E03.9 Hypothyroidism, unspecified; M17.11 Unilateral primary osteoarthritis, right knee; Z86.16 Personal history of COVID-19; Z79.82 Long term (current) use of aspirin; Z96.652 Presence of left artificial knee joint; Z87.891 Personal history of nicotine dependence; M25.761 Osteophyte, right knee; E78.5 Hyperlipidemia, unspecified; K21.9 Gastro-esophageal reflux disease without esophagitis; Z79.899 Other long term (current) drug therapy

== ENCOUNTER 2024-08-06 15:42 | Inpatient (IN) ==
[2024-08-06] MEDS: OPTIRAY 320 125ml IV ONE (15:48)
[2024-08-06] MEDS: LABETALOL HCL IV 5 MG/ML 20ML IV PRN (16:03)
--- NOTE | 2024-08-06 16:08 | Emergency Department Note ---
Impression & Plan Expressive aphasia, Hypertension, Closed fracture of distal end of right fibula ED Provider Note ED Provider Note NAME: HERMAN BENÍTEZ AGE:78 SEX: Female : 1945 ARRIVES VIA: EMS INFORMANT: Patient ED PROVIDER(s): Shanae Aguirre DO CHIEF COMPLAINT: Strokelike symptoms HPI: This is a 78-year-old female brought in by EMS as a stroke alert based on prehospital command call due to concern for difficulty speaking/expressive aphasia. Patient found by on the bedroom floor, he was concerned that she was confused that she was giving bizarre answers and did not seem to be able to speak correctly and called 911. Patient noted to be significantly hypertensive by EMS, prehospital blood glucose reassuring. Patient taken immediately to CT. Patient can answer a few yes/no questions but cannot otherwise state an entire sentence or provide any further history. at bedside denies any recent illness or change in medications. No prior similar episodes. He states he last saw her in her usual state of health at 1030 last night when he went to bed. He had not seen her yet today. PAST MEDICAL HISTORY:See Below PAST SURGICAL HISTORY:See Below FAMILY HISTORY:See Below SOCIAL HISTORY:See Below HOME MEDICATIONS:See Below ALLERGIES:See Below VITALS:See Below PHYSICAL EXAMINATION: GENERAL: alert, well appearing, well nourished, no distress, non-toxic EYE EXAM: normal conjunctiva, PERRL and EOM's grossly intact OROPHARYNX: no exudate, no erythema, lips, buccal mucosa, and tongue normal and mucous membranes are moist NECK: supple, no nuchal rigidity, no adenopathy, non-tender LUNGS: Clear to auscultation. Normal chest wall mechanics, no w/r/r HEART: no murmurs, S1 normal and S2 normal ABDOMEN: abdomen soft, non-tender, normo-active bowel sounds, no masses, no rebound or guarding. BACK: Back is symmetrical on inspection and there is no deformity, no midline tenderness, no CVA tenderness. SKIN: no rashes, petechiae, orbruising UPPER EXTREMITIES: upper extremities are grossly normal. FROM, nml pulses b/l. LOWER EXTREMITIES: No pitting edema. FROM, nml pulses b/l. Right lateral malleolus with edema and ecchymosis. Patient denies pain with palpation. NEURO EXAM: Normal sensorium, cranial nerves II-XII grossly intact, expressive aphasia, no facial droop,no gaze deviation, nogross weakness of arms however right upper extremity starts to fatigue sooner than left, no gross weakness of legs. Gross sensation intact. No ataxia.NIHSS 5 Vital Signs: reviewed and remarkable Differential Diagnosis: ischemic Stroke, hemorrhagic stroke, bells palsy, mass, neoplasm, migraine headache, seizure, subarachnoid hemorrhage, TIA, transient global amnesia, medication ADR, as well as others were considered MEDICAL DECISION MAKING: This is a 78-year-old female who presents emergency department via EMS as a code stroke for strokelike symptoms with primarily expressive aphasia. Initial NIH stroke score was 5, patient also with slight right upper extremity weakness. Patient noted to be significantly hypertensive. After going directly for CT imaging with EMS she was then brought back to room to be 1. Labs drawn and sent, IV had already been established and CT, EKG and chest ray performed at bedside interpreted me and patient monitored on telemetry. She was given 10 mg of IV labetalol due to significant hypertension. After further evaluation at bedside and discussion with family to confirm the time of last known well, case discussed with on-call [facility], Dr. Enrique. Given her last known well was last night and patient with significant hypertension here, patient was not a TNK candidate. He recommended permissive hypertension with systolics up to 120 prior to treatment and further evaluation. Patient was given 1 subsequent dose of 5 mg of labetalol here on the ER due to hypertension. She was started on IV fluids. Urine obtained and sent for analysis additionally as well as nasal swab for respiratory viral panel. Cath urine with mild WBCs and leukocyte esterase, given advanced age, patient given dose of IV antibiotics as a precaution, although have a low suspicion for occult urinary tract infection at this time. Additional x-rays revealed distal fibular fracture on the right. Patient was placed in a splint. No other evidence of fracture to the right upper extremity. I below suspicion for other occult traumatic injury. Case discussed with the hospitalist team for additional evaluation and management. Family was updated several times at bedside. Consultation(s): 1610: Discussed with Dr. Enrique, [facility]. Patient not a TNK candidate. 1729: Discussed with Dr. Loving, [facility] hospitalist team, for additional evaluation and management. ER Treatment Provided: See below 1555: Discussed with family at bedside. Diagnostics Interpreted By Me: -ECG: Normal sinus at 74, leftward axis, QRS widening with appearance of evolving left bundle branch block, normal QTc, nonspecific ST/T wave changes otherwise -Cardiac Monitoring: An order was placed for continuous cardiac monitoring. The monitor shows a rate of 78 with normal sinus rhythm. -Laboratory studies: As stated above and show below. -Imaging studies: CT head: no ICH Triage Nursing Note Reviewed Prior/Outside Records Reviewed Critical Care: Critical care of 54 min performed to assess and manage high likelihood of life-threatening stroke like symptoms, involving labs and imaging performed with assessment to evaluate stroke like symptoms and hypertension diagnosis with frequent reassessment. This time includes bedside time, treatment discussions with patient/family/consultants, documentation time and excludes procedure time. Past Med/Surg History Problem List Closed fracture of distal end of right fibula (Acute) Hypertension (Acute) Expressive aphasia (Acute) Right fibular fracture Hyperlipidemia Hypothyroidism Hx thyroid irradiation Hypertension controlled, stable per pt "white coat HTN"- home readings 130s/80s Stroke-like symptoms Status post right knee replacement Degenerative arthritis of knee, bilateral Trigger finger of both hands History of colon polyps Status post total left knee replacement Medical History Right knee DJD Encounter for pre-operative examination Elevated hemoglobin A1c Neuropathy Obesity History of atrial fibrillation History of COVID-19 Hyperlipidemia GERD (gastroesophageal reflux disease) Hypothyroidism Hypertension Surgical History History of total left knee replacement History of tooth extraction History of thyroid irradiation History of bilateral tubal ligation History of appendectomy History of colonoscopy Hx of wisdom tooth extraction Hx of tonsillectomy Hx of bilateral cataract extraction Family History Mother Liver cancer Colon cancer Diabetes Father Colon cancer Lung cancer Other No family history of adverse response to anesthesia Social History Smoking Status: Never smoker Tobacco Type: Cigarettes Second Hand Exposure: No; Do You Dip or Chew Tobacco: No; Hx Alcohol Use: No Hx Substance Use: No Preferred Language: German Communication Ability: Impaired 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: No Beliefs That Will Affect Care: None Current Living Situation: Spouse Feels Safe at Home: Yes Assistive Devices: Denture - Upper Allergies Allergies Allergy/AdvReac Type Severity Reaction Status Date / Time No Known Allergies Allergy Verified 06/30/23 07:32 Home Meds Home Medications Medication Instructions Recorded Confirmed atorvastatin 20 mg tablet 20 mg PO QPM 02/18/21 08/06/24 carvedilol 12.5 mg tablet 12.5 mg PO BID 02/18/21 08/06/24 famotidine 10 mg tablet 10 mg PO BID 02/18/21 08/06/24 levothyroxine 100 mcg capsule 100 mcg PO QAM 02/18/21 08/06/24 cholecalciferol (vitamin D3) 125 50,000 unit PO Q30D 02/18/22 08/06/24 mcg (5,000 unit) tablet (Vitamin D3) propylene glycol 0.6 % eye drops 1 drp ophthalmic (eye) QAM PRN Dry 02/18/22 08/06/24 (Systane Complete) Eyes simethicone 125 mg capsule (Gas 125 mg PO BID 02/18/22 08/06/24 Relief (simethicone)) allopurinol 100 mg tablet 100 mg PO DAILY 06/23/24 08/06/24 gabapentin 100 mg capsule 100 mg PO HS 06/23/24 08/06/24 Previous Rx's Medication Instructions Recorded sennosides 8.6 mg-docusate sodium 1 tab-cap PO DAILY #14 tabs 09/07/22 50 mg tablet (Senokot-S) sennosides 8.6 mg tablet (Senokot) 8.6 mg PO BID prevent constipation 06/26/23 14 days #28 tabs Results & Data (ED) Vital Signs Vital Signs - 24 hr 08/06/24 16:00 08/06/24 16:06 08/06/24 16:30 Temperature 36.8 C Temperature Source Oral Pulse Rate 79 67 Pulse Rate [Finger] 70 Respiratory Rate 20 16 Blood Pressure 191/109 H Blood Pressure [Right Arm] 200/131 H Blood Pressure Mean 136 Blood Pressure Mean [Right Arm] 154 Pulse Oximetry 95 96 Oxygen Delivery Method Room Air Room Air Sepsis Recent Fever Within 48 Hours No Sepsis New/Unexplained Change in Mental Status No Sepsis Action Taken by Nursing No Action Required 08/06/24 17:10 Temperature Temperature Source Pulse Rate 76 Pulse Rate [Finger] Respiratory Rate Blood Pressure 220/153 H Blood Pressure [Right Arm] Blood Pressure Mean Blood Pressure Mean [Right Arm] Pulse Oximetry Oxygen Delivery Method Sepsis Recent Fever Within 48 Hours Sepsis New/Unexplained Change in Mental Status Sepsis Action Taken by Nursing Laboratory Data 08/06/24 15:59 08/06/24 15:59 Lab Results 08/06/24 08/06/24 08/06/24 Range/Units 15:59 16:00 16:02 WBC 8.64 (4.8-10.8) K/ul RBC 4.31 (4.20-5.40) M/uL Hgb 13.7 (12.0-16.0) g/dl Hct 38.7 (37.0-47.0) % MCV 89.8 (80.0-100.0) fL MCH 31.8 (25.0-34.0) pg MCHC 35.4 (32.0-36.0) g/dL RDW Std Deviation 42.7 (36.4-46.3) fL RDW Coeff of Rizwan 13.1 (11.5-14.5) % Plt Count 244 (130-400) K/uL MPV 9.1 L (9.4-12.4) fL Immature Gran % (Auto) 0.3 % Neut % (Auto) 66.7 % Lymph % (Auto) 20.6 % [place] % (Auto) 10.0 % Eos % (Auto) 1.6 % Baso % (Auto) 0.8 % Neut # (Auto) 5.76 (1.40-6.50) K/uL Lymph # (Auto) 1.78 (1.20-3.40) K/uL [place] # (Auto) 0.86 H (0.11-0.59) K/uL Eos # (Auto) 0.14 (0.00-0.50) K/uL Baso # (Auto) 0.07 (0.00-0.20) K/uL Immature Gran # (Auto) 0.03 (0.01-0.20) K/uL PT 11.2 (9.0-12.0) Seconds INR 1.0 (0.9-1.1) APTT 24 (21-31) Seconds PTT Ratio 0.9 Sodium 138 (136-145) mmol/L Potassium 3.7 (3.5-5.1) mmol/L Chloride 105 (98-107) mmol/L Carbon Dioxide 25 (21-32) mmol/L Anion Gap 8 (3-11) BUN 12 (6-23) mg/dl Creatinine 0.88 (0.6-1.2) mg/dl Est Cr Clr Drug Dosing 60.2 ml/min eGFR 66.81 BUN/Creatinine Ratio 13.6 (10-20) Glucose 128 H (70-99(Fasting)) mg/dl POC Glucose 126 H (70-99) mg/dl Calcium 9.5 (8.6-10.3) mg/dl Magnesium 1.7 (1.7-2.4) mg/dl Total Bilirubin 1.4 H (0.2-1.0) mg/dl AST 30 (13-39) U/L ALT 21 (7-52) U/L Alkaline Phosphatase 80 (34-104) U/L Total Creatine Kinase 153 (26-192) U/L Troponin I High Sens 11.7 (0-14) pg/ml B-Natriuretic Peptide 259 H (0-100) pg/ml Total Protein 6.9 (6.0-8.3) gm/dl Albumin 4.2 (3.4-5.0) gm/dl Globulin 2.7 (2.5-4.0) gm/dl Albumin/Globulin Ratio 1.6 (0.9-2) Urine Color Urine Appearance (Clear) Urine pH (4.5-7.5) Ur Specific [place] (1.000-1.030) Urine Protein (Negative) Urine Glucose (UA) (Negative) Urine Ketones (Negative) Urine Blood (Negative) Urine Nitrite (Negative) Urine Bilirubin (Negative) Urine Urobilinogen (Negative) Ur Leukocyte Esterase (Negative) Urine WBC (Auto) (0-5) /hpf Urine RBC (Auto) (0-2) /hpf U Hyaline Cast (Auto) (0-2) /lpf U Epithel Cells (Auto) (0-2) /hpf Urine Bacteria (Auto) (None Seen) Adenovirus (PCR) (NotDetected) B. pertussis DNA (PCR) (NotDetected) B.parapertussis DNA PCR (NotDetected) C. pneumoniae DNA (PCR) (NotDetected) Coronavirus OC43 (PCR) (NotDetected) Coronavirus HKU1 (PCR) (NotDetected) Coronavirus 229E (PCR) (NotDetected) SARS-CoV-2 (PCR) (NotDetected) Coronavirus NL63 (PCR) (NotDetected) Human Metapneumovir PCR (NotDetected) Influenza Type A (PCR) (NotDetected) Influenza Type B (PCR) (NotDetected) M. pneumoniae (PCR) (NotDetected) Parainfluenza 1 (PCR) (NotDetected) Parainfluenza 2 (PCR) (NotDetected) Parainfluenza 3 (PCR) (NotDetected) Parainfluenza 4 (PCR) (NotDetected) RSV (PCR) (NotDetected) Entero/Rhino (PCR) (NotDetected) Blood Type AB Positive Antibody Screen NEGATIVE 08/06/24 Range/Units 17:27 WBC (4.8-10.8) K/ul RBC (4.20-5.40) M/uL Hgb (12.0-16.0) g/dl Hct (37.0-47.0) % MCV (80.0-100.0) fL MCH (25.0-34.0) pg MCHC (32.0-36.0) g/dL RDW Std Deviation (36.4-46.3) fL RDW Coeff of Rizwan (11.5-14.5) % Plt Count (130-400) K/uL MPV (9.4-12.4) fL Immature Gran % (Auto) % Neut % (Auto) % Lymph % (Auto) % [place] % (Auto) % Eos % (Auto) % Baso % (Auto) % Neut # (Auto) (1.40-6.50) K/uL Lymph # (Auto) (1.20-3.40) K/uL [place] # (Auto) (0.11-0.59) K/uL Eos # (Auto) (0.00-0.50) K/uL Baso # (Auto) (0.00-0.20) K/uL Immature Gran # (Auto) (0.01-0.20) K/uL PT (9.0-12.0) Seconds INR (0.9-1.1) APTT (21-31) Seconds PTT Ratio Sodium (136-145) mmol/L Potassium (3.5-5.1) mmol/L Chloride (98-107) mmol/L Carbon Dioxide (21-32) mmol/L Anion Gap (3-11) BUN (6-23) mg/dl Creatinine (0.6-1.2) mg/dl Est Cr Clr Drug Dosing ml/min eGFR BUN/Creatinine Ratio (10-20) Glucose (70-99(Fasting)) mg/dl POC Glucose (70-99) mg/dl Calcium (8.6-10.3) mg/dl Magnesium (1.7-2.4) mg/dl Total Bilirubin (0.2-1.0) mg/dl AST (13-39) U/L ALT (7-52) U/L Alkaline Phosphatase (34-104) U/L Total Creatine Kinase (26-192) U/L Troponin I High Sens (0-14) pg/ml B-Natriuretic Peptide (0-100) pg/ml Total Protein (6.0-8.3) gm/dl Albumin (3.4-5.0) gm/dl Globulin (2.5-4.0) gm/dl Albumin/Globulin Ratio (0.9-2) Urine Color Yellow Urine Appearance Clear (Clear) Urine pH 6.5 (4.5-7.5) Ur Specific [place] > 1.045 H (1.000-1.030) Urine Protein Negative (Negative) Urine Glucose (UA) Negative (Negative) Urine Ketones Trace H (Negative) Urine Blood Negative (Negative) Urine Nitrite Negative (Negative) Urine Bilirubin Negative (Negative) Urine Urobilinogen Negative (Negative) Ur Leukocyte Esterase 1+ H (Negative) Urine WBC (Auto) 6-10 H (0-5) /hpf Urine RBC (Auto) 0-2 (0-2) /hpf U Hyaline Cast (Auto) 0-2 (0-2) /lpf U Epithel Cells (Auto) 0-2 (0-2) /hpf Urine Bacteria (Auto) None Seen (None Seen) Adenovirus (PCR) Not Detected (NotDetected) B. pertussis DNA (PCR) Not Detected (NotDetected) B.parapertussis DNA PCR Not Detected (NotDetected) C. pneumoniae DNA (PCR) Not Detected (NotDetected) Coronavirus OC43 (PCR) Not Detected (NotDetected) Coronavirus HKU1 (PCR) Not Detected (NotDetected) Coronavirus 229E (PCR) Not Detected (NotDetected) SARS-CoV-2 (PCR) Not Detected (NotDetected) Coronavirus NL63 (PCR) Not Detected (NotDetected) Human Metapneumovir PCR Not Detected (NotDetected) Influenza Type A (PCR) Not Detected (NotDetected) Influenza Type B (PCR) Not Detected (NotDetected) M. pneumoniae (PCR) Not Detected (NotDetected) Parainfluenza 1 (PCR) Not Detected (NotDetected) Parainfluenza 2 (PCR) Not Detected (NotDetected) Parainfluenza 3 (PCR) Not Detected (NotDetected) Parainfluenza 4 (PCR) Not Detected (NotDetected) RSV (PCR) Not Detected (NotDetected) Entero/Rhino (PCR) Not Detected (NotDetected) Blood Type Antibody Screen Administered Medications Atorvastatin Calcium (Atorvastatin 40 Mg Tab) 40 mg PO QPM ROSA Stop: 09/05/24 20:59 Last Admin: 08/06/24 21:00 Dose: 40 mg Documented By: JUDY Famotidine (Famotidine 10 Mg Tablet) 10 mg PO BID ROSA Stop: 09/05/24 20:59 Last Admin: 08/06/24 21:00 Dose: 10 mg Documented By: JUDY Gabapentin (Gabapentin 100 Mg Cap) 100 mg PO HS ROSA Stop: 09/05/24 20:59 Last Admin: 08/06/24 21:00 Dose: 100 mg Documented By: JUDY Discontinued Medications Acetaminophen (Acetaminophen 325 Mg Tab) 650 mg PO NOW STA Stop: 08/06/24 18:48 Last Admin: 08/06/24 18:55 Dose: 650 mg Documented By: ALEM Aspirin (Aspirin 325 Mg Ectab) 325 mg PO NOW STA Stop: 08/06/24 17:16 Last Admin: 08/06/24 17:59 Dose: 325 mg Documented By: ALEM Clopidogrel Bisulfate (Clopidogrel Bisulfate 300 Mg Tab) 300 mg PO NOW STA Stop: 08/06/24 18:35 Last Admin: 08/06/24 18:55 Dose: 300 mg Documented By: ALEM Hydromorphone HCl (Hydromorphone Inj 0.5 Mg/0.5 Ml Syr) 0.5 mg IV NOW STA Stop: 08/06/24 19:17 Last Admin: 08/06/24 19:21 Dose: 0.5 mg Documented By: MARY Magnesium Sulfate/Dextrose (Magnesium Sulfate / D5w) 1 gm in 100 mls @ 100 mls/hr IV NOW STA Stop: 08/06/24 17:52 Last Infusion: 08/06/24 19:13 Dose: Infused Documented By: Admin: 08/06/24 17:55 Dose: 100 mls/hr Documented By: ALEM Ceftriaxone Sodium (Rocephin) 2,000 mg in 50 mls @ 100 mls/hr IV NOW STA Stop: 08/06/24 18:27 Last Infusion: 08/06/24 19:56 Dose: Infused Documented By: Admin: 08/06/24 19:22 Dose: 100 mls/hr Documented By: MARY Ioversol (Optiray 320 125ml) 120 ml IV ONCE ONE Stop: 08/06/24 15:48 Last Admin: 08/06/24 15:48 Dose: 120 ml Documented By: ANSON Labetalol HCl (Labetalol Hcl Iv 5 Mg/Ml 20ml) 10 mg IV Q10M PRN PRN Reason: SBP above 185 or DBP above 110 Last Admin: 08/06/24 17:10 Dose: 5 mg Documented By: Admin: 08/06/24 16:03 Dose: 10 mg Documented By: ALEM Ondansetron HCl (Ondansetron Inj 2 Mg/Ml 2 Ml Vial) 4 mg IV NOW STA Stop: 08/06/24 18:21 Last Admin: 08/06/24 18:23 Dose: 4 mg Documented By: ALEM Potassium Chloride (Potassium Chloride 10 Meq Tabcr) 30 meq PO NOW STA Stop: 08/06/24 19:49 Last Admin: 08/06/24 20:59 Dose: 30 meq Documented By: JUDY Imaging Data Radiologist's Impression: Chest X-Ray 08/06/24 15:44 Chest radiograph, one view History: Chest pain Comparison: None Findings: Single AP view of the chest performed. Low lung volumes which results in crowding of the bronchovascular structures. No focal consolidation or pleural effusion. No pneumothorax. The cardiomediastinal silhouette is within normal limits. Normal pulmonary vascularity. No evidence for lymphadenopathy. No visualized bony or soft tissue abnormality. Impression: Normal chest radiograph Electronically signed by Hernandez Benítez 08-06-2024 4:[address] 08/06/24 15:[address] without contrast CT angiogram of the neck CT angiogram of the brain with contrast Provided History: Neuro deficit Comparison: None Technique: HEAD CT: Using multidetector thin collimation helical acquisition technique, axial, coronal and sagittal CT images from the skull base to the vertex were obtained without intravenous contrast. HEAD and NECK CTA: During rapid bolus intravenous injection of nonionic contrast material, axial images were obtained using thin collimation multidetector helical technique from the base of the neck through the Vertex of vertex of the head. This CT angiogram data was reconstructed at thin intervals with mild overlap. 3D reconstructions were obtained. The axial source images, multiplanar reformations, 3D reconstructions in both maximum intensity projection display and volume rendered models were reviewed. Dose reduction techniques were achieved by using automatic exposure control and/or adjustment of mA and/or kV according to patient size and/or use of iterative reconstruction technique. Findings: Head CT: There is no intracranial hemorrhage, mass effect, or midline shift. Gomez/white matter differentiation in both cerebral hemispheres is preserved. Ventricles are proportionate to the cerebral sulci. There is moderate cerebral atrophy. Moderate to marked, patchy low-attenuation changes in the white matter, most suggestive of sequelae of chronic small vessel ischemic disease. Left mastoid air cell effusion. Head CTA demonstrates no aneurysm or stenosis of the major intracranial arteries. Neck CTA demonstrates no stenosis of the major cervical arteries. The origins of the great vessels from the aortic arch are patent. The normal distal right internal carotid artery measures 5 mm. The normal distal left internal carotid artery measures 5 mm. No mass is noted within the visualized portions of the cervical soft tissues or lung apices. Impression: 1. Head CTA demonstrates no aneurysm or stenosis of the major intracranial arteries, 2. Neck CTA demonstrates no stenosis of the major cervical arteries. 3. No intracranial hemorrhage on the noncontrast head CT. Findings discussed with Dr. Aguirre by Dr. Benítez at 4:05 PM 08/06/2024 Electronically signed by Hernandez Benítez 08-06-2024 4:05 PM Head CTA 08/06/24 15:[address] without contrast CT angiogram of the neck CT angiogram of the brain with contrast Provided History: Neuro deficit Comparison: None Technique: HEAD CT: Using multidetector thin collimation helical acquisition technique, axial, coronal and sagittal CT images from the skull base to the vertex were obtained without intravenous contrast. HEAD and NECK CTA: During rapid bolus intravenous injection of nonionic contrast material, axial images were obtained using thin collimation multidetector helical technique from the base of the neck through the Vertex of vertex of the head. This CT angiogram data was reconstructed at thin intervals with mild overlap. 3D reconstructions were obtained. The axial source images, multiplanar reformations, 3D reconstructions in both maximum intensity projection display and volume rendered models were reviewed. Dose reduction techniques were achieved by using automatic exposure control and/or adjustment of mA and/or kV according to patient size and/or use of iterative reconstruction technique. Findings: Head CT: There is no intracranial hemorrhage, mass effect, or midline shift. Gomez/white matter differentiation in both cerebral hemispheres is preserved. Ventricles are proportionate to the cerebral sulci. There is moderate cerebral atrophy. Moderate to marked, patchy low-attenuation changes in the white matter, most suggestive of sequelae of chronic small vessel ischemic disease. Left mastoid air cell effusion. Head CTA demonstrates no aneurysm or stenosis of the major intracranial arteries. Neck CTA demonstrates no stenosis of the major cervical arteries. The origins of the great vessels from the aortic arch are patent. The normal distal right internal carotid artery measures 5 mm. The normal distal left internal carotid artery measures 5 mm. No mass is noted within the visualized portions of the cervical soft tissues or lung apices. Impression: 1. Head CTA demonstrates no aneurysm or stenosis of the major intracranial arteries, 2. Neck CTA demonstrates no stenosis of the major cervical arteries. 3. No intracranial hemorrhage on the noncontrast head CT. Findings discussed with Dr. Aguirre by Dr. Benítez at 4:05 PM 08/06/2024 Electronically signed by Hernandez Benítez 08-06-2024 4:05 PM Neck CTA 08/06/24 15:[address] without contrast CT angiogram of the neck CT angiogram of the brain with contrast Provided History: Neuro deficit Comparison: None Technique: HEAD CT: Using multidetector thin collimation helical acquisition technique, axial, coronal and sagittal CT images from the skull base to the vertex were obtained without intravenous contrast. HEAD and NECK CTA: During rapid bolus intravenous injection of nonionic contrast material, axial images were obtained using thin collimation multidetector helical technique from the base of the neck through the Vertex of vertex of the head. This CT angiogram data was reconstructed at thin intervals with mild overlap. 3D reconstructions were obtained. The axial source images, multiplanar reformations, 3D reconstructions in both maximum intensity projection display and volume rendered models were reviewed. Dose reduction techniques were achieved by using automatic exposure control and/or adjustment of mA and/or kV according to patient size and/or use of iterative reconstruction technique. Findings: Head CT: There is no intracranial hemorrhage, mass effect, or midline shift. Gomez/white matter differentiation in both cerebral hemispheres is preserved. Ventricles are proportionate to the cerebral sulci. There is moderate cerebral atrophy. Moderate to marked, patchy low-attenuation changes in the white matter, most suggestive of sequelae of chronic small vessel ischemic disease. Left mastoid air cell effusion. Head CTA demonstrates no aneurysm or stenosis of the major intracranial arteries. Neck CTA demonstrates no stenosis of the major cervical arteries. The origins of the great vessels from the aortic arch are patent. The normal distal right internal carotid artery measures 5 mm. The normal distal left internal carotid artery measures 5 mm. No mass is noted within the visualized portions of the cervical soft tissues or lung apices. Impression: 1. Head CTA demonstrates no aneurysm or stenosis of the major intracranial arteries, 2. Neck CTA demonstrates no stenosis of the major cervical arteries. 3. No intracranial hemorrhage on the noncontrast head CT. Findings discussed with Dr. Aguirre by Dr. Benítez at 4:05 PM 08/06/2024 Electronically signed by Hernandez Benítez 08-06-2024 4:05 PM Ankle X-Ray 08/06/24 15:55 Study: Right ankle 3 views History: Pain Comparison: None Findings: Transversely oriented slightly oblique fracture through the distal fibula at the level of the ankle joint. The medial and posterior malleolus appear intact. Alignment is anatomic. Joint spaces are well maintained. There is significant lateral ankle soft tissue swelling and edema. The talar dome appears intact. Bone mineralization is decreased. Plantar calcaneal enthesophyte. Impression: Fracture of the distal fibula, as above. Electronically signed by Hernandez Benítez 08-06-2024 4:15 PM Elbow X-Ray 08/06/24 16:23 Study: Left elbow 2 views History: Pain Comparison: None Findings: There is no acute fracture or dislocation. Alignment is anatomic. Joint spaces are well maintained. Small osteophytes of the radial head and distal humerus. There is no joint effusion or significant soft tissue swelling. Bone mineralization is normal. Impression: No acute bony abnormality Electronically signed by Hernandez Benítez 08-06-2024 5:22 PM Shoulder X-Ray 08/06/24 16:23 Study: Left shoulder 2 views History: Pain Comparison: None Findings: There is no acute fracture or dislocation. Alignment is anatomic. Joint spaces are well maintained. There is no joint effusion or significant soft tissue swelling. Bone mineralization is normal. Impression: No acute bony abnormality Electronically signed by Hernandez Benítez 08-06-2024 5:22 PM Discharge Plan Visit Data Chief Complaint: Stroke Alert Stated Complaint: STROKE ALERT ED Provider: Shanae Aguirre Discharge Problem: Expressive aphasia, Hypertension, Closed fracture of distal end of right fibula Discharge Instructions Interventions: ED Discharge Assessment Last Done: 08/06/24 19:48
--- NOTE | 2024-08-06 16:15 | XRay Report ---
Chest radiograph, one view History: Chest pain Comparison: None Findings: Single AP view of the chest performed. Low lung volumes which results in crowding of the bronchovascular structures. No focal consolidation or pleural effusion. No pneumothorax. The cardiomediastinal silhouette is within normal limits. Normal pulmonary vascularity. No evidence for lymphadenopathy. No visualized bony or soft tissue abnormality. Impression: Normal chest radiograph Electronically signed by Hernandez Benítez 08-06-2024 4:15 PM
--- NOTE | 2024-08-06 16:15 | XRay Report ---
Study: Right ankle 3 views History: Pain Comparison: None Findings: Transversely oriented slightly oblique fracture through the distal fibula at the level of the ankle joint. The medial and posterior malleolus appear intact. Alignment is anatomic. Joint spaces are well maintained. There is significant lateral ankle soft tissue swelling and edema. The talar dome appears intact. Bone mineralization is decreased. Plantar calcaneal enthesophyte. Impression: Fracture of the distal fibula, as above. Electronically signed by Hernandez Benítez 08-06-2024 4:15 PM
[2024-08-06 16:17] LABS: Basophils # (auto) 0.07 K/uL (0.00-0.20); Basophils % (auto) 0.8 %; Eosinophils # (auto) 0.14 K/uL (0.00-0.50); Eosinophils % (auto) 1.6 %; Hematocrit (blood only) 38.7 % (37.0-47.0); Hemoglobin 13.7 g/dl (12.0-16.0); Immature Granulocytes # (auto) 0.03 K/uL (0.01-0.20); Immature Granulocytes % (auto) 0.3 %; Lymphocytes # (auto) 1.78 K/uL (1.20-3.40); Lymphocytes % (auto) 20.6 %; Mean Corpuscular Hemoglobin 31.8 pg (25.0-34.0); Mean Corpuscular Hgb Conc 35.4 g/dL (32.0-36.0); Mean Corpuscular Volume 89.8 fL (80.0-100.0); Mean Platelet Volume 9.1 fL (9.4-12.4); Monocytes # (auto) 0.86 K/uL (0.11-0.59); Neutrophils # (auto) 5.76 K/uL (1.40-6.50); Neutrophils % (auto) 66.7 %; Platelet Count 244 K/uL (130-400); RDW Coefficient of Variation 13.1 % (11.5-14.5); RDW Standard Deviation 42.7 fL (36.4-46.3); Red Blood Count 4.31 M/uL (4.20-5.40); White Blood Count 8.64 K/ul (4.8-10.8)
[2024-08-06 16:32] LABS: Albumin Globulin Ratio 1.6 (0.9-2); Albumin Level 4.2 gm/dl (3.4-5.0); BUN Creatinine Ratio 13.6 (10-20); Bilirubin,Total 1.4 mg/dl (0.2-1.0); Calcium 9.5 mg/dl (8.6-10.3); Creatinine Clr Calc Pharmacy 60.2 ml/min; Globulin 2.7 gm/dl (2.5-4.0); Magnesium 1.7 mg/dl (1.7-2.4); Potassium 3.7 mmol/L (3.5-5.1); Total Protein 6.9 gm/dl (6.0-8.3)
[2024-08-06 16:40] LABS: Troponin I High Sensitivity 11.7 pg/ml (0-14)
[2024-08-06 16:42] LABS: Partial Thromboplastin Ratio 0.9; Partial Thromboplastin Time 24 Seconds (21-31); Prothrombin Time 11.2 Seconds (9.0-12.0)
[2024-08-06] MEDS ORDERED: PHARMACIST DISCHARGE MED REC CONSULT PRN (17:15)
[2024-08-06] MEDS ORDERED: ASPIRIN 325 MG ECTAB PO SCH (17:15)
--- NOTE | 2024-08-06 17:19 | History & Physical Report ---
Date of Service August 06, 2024 Assessment & Plan (1) Stroke-like symptoms: Plan: Patient presents with expressive aphasia, confusion Patient found on floor at 3 PM 08/06 by ; last known well 08/05 CT head negative Head/Neck CTA negative Echo 09/25 showed no wall motion abnormalities, EF 55-60%, no bubble study done infectious workup essentially negative, UA not infected, no leukocytosis, afebrile, CXR negative - Biofire pending - will discuss with telestroke about dual antiplatelet therapy - start ASA 81mg daily now; given 325 mg in ED - increase Atorvastatin 20 mg to 40 mg daily now - adjust prn with lipid panel ordered - B12, folate, TSH ordered - Allow for permissive hypertension with goal parameters 220/110 until MRI resulted - Telemetry monitoring - Q4H neuro checks - PT/OT consulted - MRI and echo with bubble study ordered - concerned that patient will be unable to tolerate MRI, defer benzodiazepine use given age and stroke workup - Discussed with MRI will obtain MRI in the morning 08/07 - lipid panel and A1C with AM labs - consult neurology possible unwitnessed fall - CK negative, no seizure like activity, see associated fx below hypomagnesemia - 1.4 - 1 G IV ordered; trend hypokalemia - 3.7 - 30 MeQ PO ordered; trend (2) Right fibular fracture: Plan: patient denies falling although confused Right ankle XR showing fracture of distal fibula Orthopedics consulted Splint placed PT/OT consulted (3) Hypertension: Plan: will continue permissive hypertension to 220/110 Can consider labetalol as needed Was given 15 Mg IV labetalol in ED (4) Hypothyroidism: Plan: History of Graves' disease s/p irradiation history of A-fib thought to be related to thyroid dysfunction, corrected TSH with AM labs continue levothyroxine (5) Hyperlipidemia: Plan: previously on atorvastatin 20 Mg daily Will increase atorvastatin to 40mg as per stroke workup Lipid panel with a.m. labs Plan Patient is a 78-year-old female with a past medical history of Graves' disease, hypertension, hyperlipidemia, A-fib, neuropathy. She presents today as a stroke alert after her found her on the floor at 3 PM in her bedroom, last known well 08/05. The patient is confused and has expressive aphasia. she is here for stroke workup, CT head, head and neck CTAs negative for acute processes. She was also found to have a right distal fibular fracture. The patient does not remember falling. Differential includes CVA, hypertensive and neuropathy, illness. UTI - UA appears noninfectious, was given Rocephin prophylactically in ED; will defer further antibiotic therapy at this time unless cultures show otherwise Chronic stable diagnoses: hx of a fib- continue carvedilol GERDcontinue famotidine Neuropathycontinue gabapentin Goutcontinue allopurinol VTE ppx: SCDs; deferred chemical PPx given stroke workup above Diet: original dysphagia screen failed - NPO; repeat dysphagia screen ordered, if passes can advance to heart healthy diet - consult speech Dispo: PCU Admission and Anticipated Discharge Date Admission Date: 08/06/23 History of Present Illness Chief Complaint: stroke alert Primary Care Provider: Tonja Razo DO Patient is a 78-year-old female with a past medical history of Graves' disease, hypertension, hyperlipidemia, A-fib, neuropathy. She presents today as a s troke alert after her found her on the floor at 3 PM in her bedroom, last known well 08/05. The patient is confused and has expressive aphasia. she is here for stroke workup, CT head, head and neck CTAs negative for acute processes. She was also found to have a right distal fibular fracture. The patient is unable to follow commands and stated that she does not remember falling. The following history was provided by the patient's who found her on the floor today. He stated that they have separate bedrooms and he went about his morning activities and realize he had not seen her for that encounter at 3 PM. He suspect she did not take her home medications this morning. He denies any evidence of bladder or bowel incontinence, denies possibility of seizure. He stated the bed was messy and there was pillows on the floor. She has denied falling to him and provider at bedside. She uses no assistive devices at baseline. She has no cognitive deficits at baseline. She has never had a stroke before similar symptoms. She has no history of DM or previous VTE. She does not smoke or drink alcohol. She has a living will stating DNR/DNI status. The patient is able to respond yes and now; she denies flulike symptoms, rhinorrhea, sore throat, cough, congestion. The patient denies dysuria, hematuria, difficulty urinating, current pain, abdominal pain, dizziness. The patient's family stated that she will likely not be able to sit still for MRI, discussed using Ativan but after discussion with Dr. Loving, decided that could skew neurochecks. Will defer using Ativan for MRI at this time. MRI off duty for the evening, will attempt MRI in the morning when patient may be able to tolerate better. Allergies Allergy/AdvReac Type Severity Reaction Status Date / Time No Known Allergies Allergy Verified 06/30/23 07:32 Home Medications Medication Instructions Recorded Confirmed Type atorvastatin 20 mg tablet 20 mg PO QPM 02/18/21 06/30/23 History carvedilol 12.5 mg tablet 12.5 mg PO Q12H 02/18/21 06/30/23 History famotidine 10 mg tablet 10 mg PO BID 02/18/21 06/30/23 History levothyroxine 100 mcg capsule 100 mcg PO QAM 02/18/21 06/30/23 History cholecalciferol (vitamin D3) 125 50,000 unit PO Q30D 02/18/22 06/30/23 History mcg (5,000 unit) tablet (Vitamin D3) propylene glycol 0.6 % eye drops 1 drp ophthalmic (eye) QAM PRN Dry 02/18/22 05/29/23 History (Systane Complete) Eyes simethicone 125 mg capsule (Gas 125 mg PO BID 02/18/22 06/30/23 History Relief (simethicone)) sennosides 8.6 mg-docusate sodium 1 tab-cap PO DAILY #14 tabs 09/07/22 06/30/23 Rx 50 mg tablet (Senokot-S) sennosides 8.6 mg tablet (Senokot) 8.6 mg PO BID prevent constipation 06/26/23 Rx 14 days #28 tabs allopurinol 100 mg tablet 100 mg PO DAILY 06/23/24 06/23/24 History gabapentin 100 mg capsule 100 mg PO DAILY 06/23/24 06/23/24 History Past Med/Surg History Problem List Right fibular fracture Hyperlipidemia Hypothyroidism Hx thyroid irradiation Hypertension controlled, stable per pt "white coat HTN"- home readings 130s/80s Stroke-like symptoms Status post right knee replacement Degenerative arthritis of knee, bilateral Trigger finger of both hands History of colon polyps Status post total left knee replacement Medical History Right knee DJD Encounter for pre-operative examination Elevated hemoglobin A1c Neuropathy Obesity History of atrial fibrillation History of COVID-19 Hyperlipidemia GERD (gastroesophageal reflux disease) Hypothyroidism Hypertension Surgical History History of total left knee replacement History of tooth extraction History of thyroid irradiation History of bilateral tubal ligation History of appendectomy History of colonoscopy Hx of wisdom tooth extraction Hx of tonsillectomy Hx of bilateral cataract extraction Family History Mother Liver cancer Colon cancer Diabetes Father Colon cancer Lung cancer Other No family history of adverse response to anesthesia Social History Smoking Status: Never smoker Tobacco Type: Cigarettes Second Hand Exposure: No; Do You Dip or Chew Tobacco: No; Hx Alcohol Use: Yes Alcohol type: wine Hx Substance Use: No Preferred Language: Italian Communication Ability: Effective 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 HEENT- EOMI, mucous membranes dry. Hearing grossly intact. Heart-normal S1 and S2. No murmurs, rubs or gallops. Lungs-clear bilaterally, no respiratory distress, no accessory muscle use. Abdomen-normal bowel sounds and soft. No ascites noted. Non-tender. Extremities- no clubbing, cyanosis, or edema. Musculoskeletal: unable to assess strength, will not follow commands Neurologic: normal touch/pain/proprioception, CN's II-XI intact bilaterally, awake and + confused Speech / Cognition: + expressive aphasia Motor/Sensory: + tremor; no sensory deficit Results & Data Results & Data Vital Signs (Past 12 Hours) Vital Signs Temp Pulse Pulse Resp BP BP Pulse Ox 08/06/24 17:10 76 220/153 H 08/06/24 16:30 70 16 200/131 H 96 08/06/24 16:06 36.8 C 67 20 191/109 H 95 08/06/24 16:00 79 O2 Del Method 08/06/24 17:10 08/06/24 16:30 Room Air 08/06/24 16:06 Room Air 08/06/24 16:00 Laboratory Results Reviewed CBC, PT/INR, CMP, mg, bio fire, UA Diagnostic Findings Reviewed shoulder XR, elbow XR, ankle XR, neck CTA, head CTA, head CT, CXR Medications Administered labetalol 10mg IV, Labetalol 5mg IV, Mg 1 gm, ASA 354 ECG Additional Comments: NSR Code Status & VTE Plan Code Status dnr/dni VTE Prophylaxis Plan VTE Prophylaxis will be ordered: Yes Supervising Physician Co-Signing Physician Notes I have personally seen, evaluated and examined the patient. I have also personally discussed the management of the patient with the resident physician/SAMANTHA and I agree with the exam findings documented in the history and physical examination and the documented assessment and plan unless otherwise stated below. Brief Exam: In general very pleasant 78-year-old female. She is alert. She follows all commands 100% accurately. She smiles on command and she sticks her tongue out on command she grasp hands on command she moves her lower extremities on command. In addition she "parrots "/repeats 100% accurately. I asked her to repeat multiple things after me including "good afternoon ", Directed toward her "I love you ", directed towards the nurse "I like your rojas nurse" again she Perative these things at 100% accurately. However she has expressive aphasia and cannot express her thoughts. Per the patient's there was no evidence of seizure activity at the home. Including bowel or bladder incontinence. HEENT: Normocephalic atraumatic. No evidence of tongue bite on exam with tongue protrusion Neck: No carotid bruits no JVD. Heart: Regular rate and rhythm without briana murmur. Lungs: Clear bilaterally anteriorly and laterally. I do not sit the patient up to auscultate posteriorly. Abdomen: Flat soft and nontender. Extremities: Right lower extremity is in a splint and Forest wrapped. She has got right upper extremity drift. Her strength is 4+ out of 5 in her right upper extremity compared to 5 out of 5 in her left upper extremity but she is left-haynes d dominant. Her right lower extremity strength is difficult to assess because of the splint and Forest wrap but she is able to lift her leg off the bed independently and hold it there. Neurologically: Is as discussed above. Only deficits are expressive aphasia in addition to right upper extremity drift. Assessment/plan: As described above. Suspect left-sided acute CVA ischemic. Telestroke was contacted by the ER physician. Antiplatelet therapy was not discussed. I have requested stat aspirin therapy. I am also paging teleneurology on-call. To see if they would want dual antiplatelet therapy. I am awaiting a callback at the time of this dictation. MRI is gone for the evening. Initial plan was to try to do MRI tonight but the patient is pretty restless and probably unable to cooperate with holding still with a good MRI tonight therefore MRI will be attempted tomorrow. This would not change our plan of care. Complete stroke workup including echocardiogram excetra. Will continue statin therapy. Will do permissive hypertension up to 220 mg of mercury systolically. Please refer to orders for further planning. The patient was accompanied by her and her son. Her is retired [employer], [place] by [employer] and her son is a [place]. They are both appreciative of our time and all her questions were answered to their satisfaction. PG Care Time/CCT Total # of Minutes Spent Total Time Spent with Patient: Total time spent is greater than 50% in coordination of care (as documented) at patient's floor/unit and/or counseling patient: Coding Level of Care Code 50146 INT INP/OBS CARE 3/75MIN Diagnoses Stroke-like symptoms R29.90 Right fibular fracture S82.401A Hypertension I10 Hypothyroidism E03.9 Hyperlipidemia E78.5
--- NOTE | 2024-08-06 17:22 | XRay Report ---
Study: Left elbow 2 views History: Pain Comparison: None Findings: There is no acute fracture or dislocation. Alignment is anatomic. Joint spaces are well maintained. Small osteophytes of the radial head and distal humerus. There is no joint effusion or significant soft tissue swelling. Bone mineralization is normal. Impression: No acute bony abnormality Electronically signed by Hernandez Benítez 08-06-2024 5:22 PM
--- NOTE | 2024-08-06 17:22 | XRay Report ---
Study: Left shoulder 2 views History: Pain Comparison: None Findings: There is no acute fracture or dislocation. Alignment is anatomic. Joint spaces are well maintained. There is no joint effusion or significant soft tissue swelling. Bone mineralization is normal. Impression: No acute bony abnormality Electronically signed by Hernandez Benítez 08-06-2024 5:22 PM
[2024-08-06 17:47] LABS: Appearance Urine Clear (Clear); Bacteria Urine Automated None Seen (None Seen); Bilirubin Urine Negative (Negative); Blood Urine Negative (Negative); Cast Urine Automated 0-2 /lpf (0-2); Color Urine Yellow; Epithelial Cell Urine Auto 0-2 /hpf (0-2); Glucose Urine UA Negative (Negative); Ketones Urine Trace (Negative); Leukocyte Esterase Urine 1+ (Negative); Nitrite Urine Negative (Negative); Protein Urine Negative (Negative); RBC Urine Automated 0-2 /hpf (0-2); Specific Gravity Urine > 1.045 (1.000-1.030); Urobilinogen Urine Negative (Negative); pH Urine 6.5 (4.5-7.5)
[2024-08-06] MEDS: MAGNESIUM SULFATE / D5W 1 GM/100 ML BAG IV STA (17:55)
[2024-08-06] MEDS: ASPIRIN 325 MG ECTAB PO STA (17:59)
[2024-08-06] MEDS ORDERED: LORazepam 2 MG/1 ML VIAL IV PRN (18:00)
[2024-08-06] MEDS: ONDANSETRON INJ 2 MG/ML 2 ML VIAL IV STA (18:23)
[2024-08-06 18:53] LABS: Adenovirus PCR Not Detected (NotDetected); Bordetella parapertussis PCR Not Detected (NotDetected); Bordetella pertussis PCR Not Detected (NotDetected); Chlamydia pneumoniae PCR Not Detected (NotDetected); Coronavirus 229E PCR Not Detected (NotDetected); Coronavirus CoV-2 (COVID19)PCR Not Detected (NotDetected); Coronavirus HKU1 PCR Not Detected (NotDetected); Coronavirus NL63 PCR Not Detected (NotDetected); Coronavirus OC43PCR Not Detected (NotDetected); Human Metapneumovirus PCR Not Detected (NotDetected); Influenza A PCR Not Detected (NotDetected); Influenza B PCR Not Detected (NotDetected); Mycoplasma pneumoniae PCR Not Detected (NotDetected); Parainfluenza Virus 1 PCR Not Detected (NotDetected); Parainfluenza Virus 2 PCR Not Detected (NotDetected); Parainfluenza Virus 3 PCR Not Detected (NotDetected); Parainfluenza Virus 4 PCR Not Detected (NotDetected); Respiratory Syncytial VirusPCR Not Detected (NotDetected); Rhinovirus/Enterovirus PCR Not Detected (NotDetected)
[2024-08-06] MEDS: ACETAMINOPHEN 325 MG TAB PO STA (18:55)
[2024-08-06] MEDS: CLOPIDOGREL BISULFATE 300 MG TAB PO STA (18:55)
[2024-08-06] MEDS: HYDROmorphone INJ 0.5 MG/0.5 ML SYR IV STA (19:21)
[2024-08-06] MEDS: cefTRIAXone SODIUM 2,000 MG/50 ML BAG IV STA (19:22)
[2024-08-06] MEDS ORDERED: ONDANSETRON INJ 2 MG/ML 2 ML VIAL IV PRN (19:48)
[2024-08-06] MEDS: POTASSIUM CHLORIDE 10 MEQ TABCR PO STA (20:59)
[2024-08-06] MEDS: ATORVASTATIN 40 MG TAB PO SCH (21:00)
[2024-08-06] MEDS: GABAPENTIN 100 MG CAP PO SCH (21:00)
[2024-08-06] MEDS: FAMOTIDINE 10 MG TABLET PO SCH (21:00)
[2024-08-07] MEDS: LEVOTHYROXINE SODIUM 100 MCG TABLET PO SCH (05:13)
[2024-08-07] MEDS: ACETAMINOPHEN 325 MG TAB PO PRN (05:17)
[2024-08-07 06:32] LABS: Basophils # (auto) 0.06 K/uL (0.00-0.20); Basophils % (auto) 0.6 %; Eosinophils # (auto) 0.07 K/uL (0.00-0.50); Eosinophils % (auto) 0.7 %; Hematocrit (blood only) 39.4 % (37.0-47.0); Hemoglobin 13.7 g/dl (12.0-16.0); Immature Granulocytes # (auto) 0.03 K/uL (0.01-0.20); Immature Granulocytes % (auto) 0.3 %; Lymphocytes # (auto) 3.18 K/uL (1.20-3.40); Lymphocytes % (auto) 29.6 %; Mean Corpuscular Hemoglobin 31.7 pg (25.0-34.0); Mean Corpuscular Hgb Conc 34.8 g/dL (32.0-36.0); Mean Corpuscular Volume 91.2 fL (80.0-100.0); Mean Platelet Volume 9.4 fL (9.4-12.4); Monocytes # (auto) 1.27 K/uL (0.11-0.59); Monocytes % (auto) 11.8 %; Neutrophils # (auto) 6.12 K/uL (1.40-6.50); Platelet Count 274 K/uL (130-400); RDW Coefficient of Variation 13.2 % (11.5-14.5); RDW Standard Deviation 43.5 fL (36.4-46.3); Red Blood Count 4.32 M/uL (4.20-5.40); White Blood Count 10.73 K/ul (4.8-10.8)
[2024-08-07 06:44] LABS: Calcium 9.4 mg/dl (8.6-10.3); Chol HDL Ratio 2.8 (0-5); Creatinine Clr Calc Pharmacy 66.3 ml/min; Magnesium 2.2 mg/dl (1.7-2.4); Potassium 3.9 mmol/L (3.5-5.1)
[2024-08-07 06:58] LABS: Folate (Folic Acid),Ser orPlas > 22.30 ng/ml (>5.38); Thyroid Stimulating Hormone 3.011 uIu/ml (0.300-4.500)
[2024-08-07 06:59] LABS: Vitamin B12 1310 pg/ml (180-914)
[2024-08-07 07:20] LABS: Estimated Average Glucose 137 mg/dl; Hemoglobin A1C 6.4 % (4.5-5.6)
--- NOTE | 2024-08-07 07:46 | Hospitalist Progress Note ---
Date of Service August 07, 2024 Assessment & Plan (1) Stroke-like symptoms: (2) Right fibular fracture: (3) Hypertension: (4) Hypothyroidism: (5) Hyperlipidemia: Plan Patient is a 78-year-old female with a past medical history of Graves' disease, hypertension, hyperlipidemia, A-fib, neuropathy. She presents today as a stroke alert after her found her on the floor at 3 PM in her bedroom, last known well 08/05. The patient is confused and has expressive aphasia. she is here for stroke workup, CT head, head and neck CTAs negative for acute processes. She was also found to have a right distal fibular fracture. The patient does not remember falling. UTI - UA appears noninfectious, was given Rocephin prophylactically in ED; will defer further antibiotic therapy at this time unless cultures show otherwise # Embolic stoke on MRI, left frontal and parietal lobes, CT head negative, Head/Neck CTA negative, pending echo for embolic source not with afib as of yet to consider event monitor CXR negative - Biofire negative - telestroke recommends dual antiplatelet therapy, plavix load on admission, permissive hypertension - increase Atorvastatin 20 mg to 40 mg daily now - adjust prn with lipid panel ordered since history of afib may need to discuss with neurology timing of starting AC #right fibular fracture, found on ground, immobilize and ortho consult #hypothyroidism History of Graves' disease s/p irradiation history of A-fib thought to be related to thyroid dysfunction, corrected TSH normal continue levothyroxine Chronic stable diagnoses: hx of a fib- NSR on monitor, continue carvedilol, not on chronic AC GERDcontinue famotidine Neuropathycontinue gabapentin Goutcontinue allopurinol VTE ppx: SCDs; deferred chemical PPx given stroke workup above Diet: repeat dysphagia screen ordered, if passes can advance to heart healthy diet - consult speech 08/07/24 passed dysphagia screen will need post discharge speech PT/OT eval Admission and Anticipated Discharge Date Admission Date: August 06, 2024 Subjective pt seen in company of her family has word finding issues, no reliably reproducible no focal loss, but cannot examine right leg as splint in place Physical Exam Physical Exam: no focal neurologic loss or facial asymetry cardiac is regular lungs are clear abd is soft and non tender Results & Data Results & Data Vital Signs (Past 12 Hours) Vital Signs Temp Pulse Pulse Resp BP BP Pulse Ox 08/07/24 07:32 98.2 F 68 18 173/97 H 90 08/07/24 03:11 97.9 F 75 16 175/95 H 95 08/07/24 01:42 84 08/07/24 00:15 176/95 H 08/06/24 23:45 98.6 F 81 16 174/111 H 96 08/06/24 23:00 82 18 180/101 H 96 08/06/24 22:00 77 18 160/100 H 97 08/06/24 21:00 77 18 147/92 H 97 08/06/24 20:00 74 18 190/108 H 91 08/06/24 20:00 Pulse Ox O2 Del Method O2 Del Method O2 Flow Rate O2 Flow Rate 08/07/24 07:32 Nasal Cannula 2 08/07/24 03:11 Nasal Cannula 1 08/07/24 01:42 08/07/24 00:15 08/06/24 23:45 Nasal Cannula 1 08/06/24 23:00 Nasal Cannula 1 08/06/24 22:00 Nasal Cannula 3 08/06/24 21:00 Nasal Cannula 3 08/06/24 20:00 Nasal Cannula 3 08/06/24 20:00 91 Nasal Cannula 3 Laboratory Results review cbc review chemistry review lipids, A1c PG Care Time/CCT Total # of Minutes Spent Total Time Spent with Patient: Total time spent is greater than 50% in coordination of care (as documented) at patient's floor/unit and/or counseling patient: Coding Level of Care Code 19067 SUB INP/OBS CARE 3/50MIN Diagnoses Stroke-like symptoms R29.90 Right fibular fracture S82.401A Hypertension I10 Hypothyroidism E03.9 Hyperlipidemia E78.5
[2024-08-07] MEDS: allopurinoL 100 MG TAB PO SCH (08:00)
[2024-08-07] MEDS: ASPIRIN 81 MG ECTAB PO SCH (08:01)
[2024-08-07] MEDS: CLOPIDOGREL BISULFATE 75 MG TAB PO SCH (08:01)
--- NOTE | 2024-08-07 12:57 | Orthopedic Progress Note ---
Date of Service August 07, 2024 Assessment & Plan (1) Closed fracture of distal end of right fibula: Plan Attempted to see patient. She is currently in MRI. Will attempt to see later today or tomorrow. Admission and Anticipated Discharge Date Admission Date: August 06, 2024
--- NOTE | 2024-08-07 13:47 | Magnetic Resonance Report ---
MRI OF THE BRAIN WITHOUT CONTRAST CLINICAL HISTORY: Stroke like symptoms. COMPARISON STUDY: Head CT and CTA of the head August 06, 2024. TECHNIQUE: Utilizing a 1.5 Gwen magnet and dedicated coil, multiplanar, multiecho imaging of the bra in was performed without IV contrast. FINDINGS: There are numerous small foci of restricted diffusion within the left frontal and parietal lobes. These are hypointense on the ADC map. There is no mass effect. There is no evidence for hemorr hagic conversion. Ventricular system is unremarkable. Basal cisterns are patent. There are no extra a xial collections. Flow-voids for the major intracranial vessels are present. Extensive white matter T 2 hyperintense foci suggest small vessel disease. Calvarial signal is normal. Large left mastoid effu jerry is incidentally noted. There is no fluid within the right mastoid air cells. IMPRESSION: 1. Numerous small foci of restricted diffusion within the left frontal and parietal lobes consistent with acute infarcts. The appearance suggests an embolic etiology. 2. No intracranial hemorrhage. No mass effect. 3. Extensive small vessel disease. 4. Left mastoid effusion. ACT 112: Negative or not required by law. Electronically signed by: Emilio Juarez M.D. 08/07/2024 1:45 PM
--- NOTE | 2024-08-07 15:30 | Neurology Consultation ---
Date of Consultation August 07, 2024 Assessment & Plan (1) Ischemic stroke: History of Present Illness Attending Physician: Carlton Nascimento MD History of Present Illness S: pt currently feeling well. speech back to baseline. slight difficulty with year. mri brain noted for multiple left frontal/parietal ischemic infarct, emoblic like pattern. CTA negative. otherwise doing well. Admission HPI: Patient is a 78-year-old female with a past medical history of Graves' disease, hypertension, hyperlipidemia, A-fib, neuropathy. She presents today as a stroke alert after her found her on the floor at 3 PM in her bedroom, last known well 08/05. The patient is confused and has expressive aphasia. she is here for stroke workup, CT head, head and neck CTAs negative for acute processes. She was also found to have a right distal fibular fracture. The patient is unable to follow commands and stated that she does not remember falling. The following history was provided by the patient's who found her on the floor today. He stated that they have separate bedrooms and he went about his morning activities and realize he had not seen her for that encounter at 3 PM. He suspect she did not take her home medications this morning. He denies any evidence of bladder or bowel incontinence, denies possibility of seizure. He stated the bed was messy and there was pillows on the floor. She has denied falling to him and provider at bedside. She uses no assistive devices at baseline. She has no cognitive deficits at baseline. She has never had a stroke before similar symptoms. She has no history of DM or previous VTE. She does not smoke or drink alcohol. She has a living will stating DNR/DNI status. The patient is able to respond yes and now; she denies flulike symptoms, rhinorrhea, sore throat, cough, congestion. The patient denies dysuria, hematuria, difficulty urinating, current pain, abdominal pain, dizziness. The patient's family stated that she will likely not be able to sit still for MRI, discussed using Ativan but after discussion with Dr. Loving, decided that could skew neurochecks. Will defer using Ativan for MRI at this time. MRI off duty for the evening, will attempt MRI in the morning when patient may be able to tolerate better. Allergies Allergy/AdvReac Type Severity Reaction Status Date / Time No Known Allergies Allergy Verified 06/30/23 07:32 Home Medications Medication Instructions Recorded Confirmed Type atorvastatin 20 mg tablet 20 mg PO QPM 02/18/21 08/06/24 History carvedilol 12.5 mg tablet 12.5 mg PO BID 02/18/21 08/06/24 History famotidine 10 mg tablet 10 mg PO BID 02/18/21 08/06/24 History levothyroxine 100 mcg capsule 100 mcg PO QAM 02/18/21 08/06/24 History cholecalciferol (vitamin D3) 125 50,000 unit PO Q30D 02/18/22 08/06/24 History mcg (5,000 unit) tablet (Vitamin D3) propylene glycol 0.6 % eye drops 1 drp ophthalmic (eye) QAM PRN Dry 02/18/22 08/06/24 History (Systane Complete) Eyes simethicone 125 mg capsule (Gas 125 mg PO BID 02/18/22 08/06/24 History Relief (simethicone)) sennosides 8.6 mg-docusate sodium 1 tab-cap PO DAILY #14 tabs 09/07/22 08/06/24 Rx 50 mg tablet (Senokot-S) sennosides 8.6 mg tablet (Senokot) 8.6 mg PO BID prevent constipation 06/26/23 08/06/24 Rx 14 days #28 tabs allopurinol 100 mg tablet 100 mg PO DAILY 06/23/24 08/06/24 History gabapentin 100 mg capsule 100 mg PO HS 06/23/24 08/06/24 History Patient History Medical History Right knee DJD Encounter for pre-operative examination Elevated hemoglobin A1c Neuropathy Obesity History of atrial fibrillation History of COVID-19 Hyperlipidemia GERD (gastroesophageal reflux disease) Hypothyroidism Hypertension Surgical History History of total left knee replacement History of tooth extraction History of thyroid irradiation History of bilateral tubal ligation History of appendectomy History of colonoscopy Hx of wisdom tooth extraction Hx of tonsillectomy Hx of bilateral cataract extraction Family History Mother Liver cancer Colon cancer Diabetes Father Colon cancer Lung cancer Other No family history of adverse response to anesthesia Social History Smoking Status: Never smoker Tobacco Type: Cigarettes Second Hand Exposure: No; Do You Dip or Chew Tobacco: No; Hx Alcohol Use: No Hx Substance Use: No Preferred Language: Arabic Communication Ability: Impaired 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 Beliefs That Will Affect Care: None Current Living Situation: Spouse Feels Safe at Home: Yes Assistive Devices: Denture - Upper Review of Systems Review of Systems: All systems reviewed & are unremarkable except as noted in Subjective Constitutional: as per Subjective / HPI Eyes: as per Subjective / HPI Ear, Nose, Mouth, Throat: as per Subjective / HPI Respiratory: as per Subjective / HPI Cardiovascular: as per Subjective / HPI Gastrointestinal: as per Subjective / HPI Musculoskeletal: as per Subjective / HPI Integumentary: as per Subjective / HPI Neurologic: as per Subjective / HPI Psychiatric: as per Subjective / HPI Endocrine: as per Subjective / HPI Hematologic / Lymphatic: as per Subjective / HPI Allergy / Immunological: as per Subjective / HPI Exam (Neuro) Physical Exam: HEENT: normocephalic Neuro: Mental: AOx4, slight difficulty with year but able to guess it 2024. noted for L/R confusion, finger agnosia, double simultagnosia, fluent speech, normal comprehension, no apraxia. CN: PERRL, Full EOM, symmetric face, midline T/U/P, 5/5 SCM/traps. Motor: No abnormal movements, normal tone and bulk, 5/5 t/o bilaterally, rt leg not tested but 5/5 grossly proximally. rt foot on cast. Sens: intact to touch b/l grossly Coord: mild left upper arm dysmetria. DTR: 1+ sym b/l Impression: 78 yo female with left frontal/parietal multiple ischemic strokes in setting of ?UTI, left foot fibular fx, hx of atrial fib (not on OAC, not sure why), currently in sinus rhythm. CTA head/neck negative. Her stroke pattern suggestive of emoblic pattern. Recommendations: 1. Standard stroke work up as planned 2.given the pattern of her stroke and hx of atrial fib, if there is no contraindication, recommend starting pt on Eliquis 5mg po bid OAC (once eliquis started, can stop the DAPT). cardiology work up as planned 3. Images: TTE with bubble 4. Permissive Hypertension for next 24-4 8 hrs. Keep SBP goal range less than 220. Avoid hypotension. Do not stop beta-lukas if on it. 5 6. Long-term SBP goal less than 130. 7. Plenty of hydration including IV flui d if possible (use isotonic solution) next 1-2 days. Avoid hypovolemia and hypotension. 8. Initiate DVT prevention therapy. 9. Avoid hypoglycemia, serum glucose goa l during hospitalization: 140-180. 10. Long-term HgA1c goal less than 7. 11. Start statin if not on it and no abs olute contraindication, long-term LDL goal less than 70. 12. Head of bed up 30 degrees if possibl e. 13. Stroke education by nursing and appr opriate staff. 14. Telemetry monitoring. Consider fpc cardiac monitoring, i.e. MCOT (mobile cardiac outpatient telemetry) or ICM (insertable monitor and storage bin tender, e.g. LINQ) 15. Fall precaution and aspiration preca ution. 16. Consult physical and occupational th erapy and speech path evaluation. Chart reviewed I have spent more than 50% educating patient about potential diagnosis and neurological evaluation and coordinating care with patient's treatment team. Total time spent (including chart review and coordination of care): 60 min (this includes chart review). Results & Data Vital Signs (Past 12 Hours) Vital Signs Temp Pulse Resp BP BP Pulse Ox O2 Del Method 08/07/24 12:07 36.8 C 70 18 180/100 H 92 Nasal Cannula 08/07/24 11:57 Nasal Cannula 08/07/24 07:32 36.8 C 68 18 173/97 H 90 Nasal Cannula O2 Flow Rate 08/07/24 12:07 2 08/07/24 11:57 2 08/07/24 07:32 2 PG Care Time/CCT Total # of Minutes Spent Total Time Spent with Patient: Total time spent is greater than 50% in coordination of care (as documented) at patient's floor/unit and/or counseling patient: Coding Level of Care Code 78038 IN/OBS CONSULT LVL 4,60M Diagnoses Ischemic stroke I63.9
[2024-08-07] MEDS: APIXABAN 5 MG TABLET PO SCH (20:30)
--- NOTE | 2024-08-07 21:34 | XCELERA ---
[id number]
[2024-08-08 06:32] LABS: Basophils # (auto) 0.08 K/uL (0.00-0.20); Basophils % (auto) 0.7 %; Eosinophils # (auto) 0.32 K/uL (0.00-0.50); Eosinophils % (auto) 2.9 %; Hematocrit (blood only) 38.1 % (37.0-47.0); Hemoglobin 13.2 g/dl (12.0-16.0); Immature Granulocytes # (auto) 0.03 K/uL (0.01-0.20); Immature Granulocytes % (auto) 0.3 %; Lymphocytes % (auto) 23.5 %; Mean Corpuscular Hemoglobin 31.4 pg (25.0-34.0); Mean Corpuscular Hgb Conc 34.6 g/dL (32.0-36.0); Mean Corpuscular Volume 90.5 fL (80.0-100.0); Mean Platelet Volume 9.1 fL (9.4-12.4); Monocytes % (auto) 10.8 %; Neutrophils # (auto) 6.83 K/uL (1.40-6.50); Neutrophils % (auto) 61.8 %; Platelet Count 228 K/uL (130-400); RDW Coefficient of Variation 13.2 % (11.5-14.5); RDW Standard Deviation 43.2 fL (36.4-46.3); Red Blood Count 4.21 M/uL (4.20-5.40); White Blood Count 11.06 K/ul (4.8-10.8)
[2024-08-08 06:45] LABS: BUN Creatinine Ratio 19.8 (10-20); Calcium 9.3 mg/dl (8.6-10.3); Creatinine Clr Calc Pharmacy 63.3 ml/min; Potassium 3.9 mmol/L (3.5-5.1)
--- NOTE | 2024-08-08 08:49 | Orthopedic Progress Note ---
Date of Service August 08, 2024 Assessment & Plan (1) Closed fracture of distal end of right fibula: Plan: Splint is clean dry and intact left in place. Nonweightbearing on right lower extremity with walker assistance PT/OT Ice with easy wrap Pain controlled p.o. medication Will need follow-up appointment and consider orthopedics in 2 weeks. With questions contact our clinic at [phone] Admission and Anticipated Discharge Date Admission Date: August 06, 2024 Subjective This 78-year-old female seen for follow-up of a right distal fibula fracture that she suffered after an unwitnessed fall. Patient also had an MRI study of her brain which showed an acute ischemic stroke which may have been the cause of her fall. Patient does not remember following. She is very pleasant and does not seem confused this morning. She states that she lives at home with her . She denies any significant pain in her right lower extremity. She has no complaint of chest pain, shortness of breath, fever, chills, sweats, nausea, vomiting, diarrhea and has a Suarez catheter in place. Review of Systems Review of Systems: All systems reviewed & are unremarkable except as noted in Subjective Physical Exam Physical Exam: Right lower extremity: Splint and dressing are clean dry intact and left in place. Patient is unable to perform an active straight leg raise test. She does tolerate passive elevation of the right lower extremity. She is able to move her digits and detect light sensation to touch over the pads of her digits. She is able to bend her knee actively near 90 degrees without discomfort. She does have tenderness to palpation over the lateral malleolus. Her peripheral pulses are 1+. She is neurovascularly intact in the right lower extremity. Quad strength is 3/5 Results & Data Vital Signs (Past 12 Hours) Vital Signs Temp Pulse Pulse Resp BP Pulse Ox O2 Del Method 08/08/24 07:34 37.0 C 74 19 154/91 H 96 Room Air 08/08/24 03:46 84 08/08/24 02:54 36.6 C 86 18 183/90 H 96 Room Air 08/07/24 23:29 37.0 C 92 H 17 180/89 H 95 Room Air Diagnostic Findings Laboratory Results WBC 11.06 K/ul (4.8-10.8) H 08/08/24 06:10 RBC 4.21 M/uL (4.20-5.40) 08/08/24 06:10 Hgb 13.2 g/dl (12.0-16.0) 08/08/24 06:10 Hct 38.1 % (37.0-47.0) 08/08/24 06:10 MCV 90.5 fL (80.0-100.0) 08/08/24 06:10 MCH 31.4 pg (25.0-34.0) 08/08/24 06:10 MCHC 34.6 g/dL (32.0-36.0) 08/08/24 06:10 RDW Std Deviation 43.2 fL (36.4-46.3) 08/08/24 06:10 RDW Coeff of Rizwan 13.2 % (11.5-14.5) 08/08/24 06:10 Plt Count 228 K/uL (130-400) 08/08/24 06:10 MPV 9.1 fL (9.4-12.4) L 08/08/24 06:10 Immature Gran % (Auto) 0.3 % 08/08/24 06:10 Neut % (Auto) 61.8 % 08/08/24 06:10 Lymph % (Auto) 23.5 % 08/08/24 06:10 [place] % (Auto) 10.8 % 08/08/24 06:10 Eos % (Auto) 2.9 % 08/08/24 06:10 Baso % (Auto) 0.7 % 08/08/24 06:10 Neut # (Auto) 6.83 K/uL (1.40-6.50) H 08/08/24 06:10 Lymph # (Auto) 2.60 K/uL (1.20-3.40) 08/08/24 06:10 [place] # (Auto) 1.20 K/uL (0.11-0.59) H 08/08/24 06:10 Eos # (Auto) 0.32 K/uL (0.00-0.50) 08/08/24 06:10 Baso # (Auto) 0.08 K/uL (0.00-0.20) 08/08/24 06:10 Immature Gran # (Auto) 0.03 K/uL (0.01-0.20) 08/08/24 06:10 PT 11.2 Seconds (9.0-12.0) 08/06/24 15:59 INR 1.0 (0.9-1.1) 08/06/24 15:59 APTT 24 Seconds (21-31) 08/06/24 15:59 PTT Ratio 0.9 08/06/24 15:59 Sodium 138 mmol/L (136-145) 08/08/24 06:10 Potassium 3.9 mmol/L (3.5-5.1) 08/08/24 06:10 Chloride 106 mmol/L (98-107) 08/08/24 06:10 Carbon Dioxide 23 mmol/L (21-32) 08/08/24 06:10 Anion Gap 9 (3-11) 08/08/24 06:10 BUN 16 mg/dl (6-23) 08/08/24 06:10 Creatinine 0.81 mg/dl (0.6-1.2) 08/08/24 06:10 Est Cr Clr Drug Dosing 63.3 ml/min 08/08/24 06:10 eGFR 73.80 08/08/24 06:10 BUN/Creatinine Ratio 19.8 (10-20) 08/08/24 06:10 Glucose 144 mg/dl (70-99(Fasting)) H 08/08/24 06:10 POC Glucose 126 mg/dl (70-99) H 08/06/24 16:02 Estimat Average Glucose 137 mg/dl 08/07/24 05:30 Hemoglobin A1c 6.4 % (4.5-5.6) H 08/07/24 05:30 Calcium 9.3 mg/dl (8.6-10.3) 08/08/24 06:10 Magnesium 2.2 mg/dl (1.7-2.4) 08/07/24 05:30 Total Bilirubin 1.4 mg/dl (0.2-1.0) H 08/06/24 15:59 AST 30 U/L (13-39) 08/06/24 15:59 ALT 21 U/L (7-52) 08/06/24 15:59 Alkaline Phosphatase 80 U/L (34-104) 08/06/24 15:59 Total Creatine Kinase 153 U/L (26-192) 08/06/24 15:59 Troponin I High Sens 11.7 pg/ml (0-14) 08/06/24 15:59 B-Natriuretic Peptide 259 pg/ml (0-100) H 08/06/24 16:00 Total Protein 6.9 gm/dl (6.0-8.3) 08/06/24 15:59 Albumin 4.2 gm/dl (3.4-5.0) 08/06/24 15:59 Globulin 2.7 gm/dl (2.5-4.0) 08/06/24 15:59 Albumin/Globulin Ratio 1.6 (0.9-2) 08/06/24 15:59 Triglycerides 200 mg/dl (0-150) H 08/07/24 05:30 Cholesterol 139 mg/dl (0-200) 08/07/24 05:30 LDL Cholesterol, Calc 49 mg/dl 08/07/24 05:30 VLDL Cholesterol, Calc 40 mg/dl (0-30) H 08/07/24 05:30 HDL Cholesterol 50 mg/dl 08/07/24 05:30 Cholesterol/HDL Ratio 2.8 (0-5) 08/07/24 05:30 Vitamin B12 1310 pg/ml (180-914) H 08/07/24 05:30 Folate > 22.30 ng/ml (>5.38) 08/07/24 05:30 TSH 3.011 uIu/ml (0.300-4.500) 08/07/24 05:30 Urine Color Yellow 08/06/24 17:27 Urine Appearance Clear (Clear) 08/06/24 17: Urine pH 6.5 (4.5-7.5) 08/06/24 17:27 Ur Specific [place] > 1.045 (1.000-1.030) H 08/06/24 17:27 Urine Protein Negative (Negative) 08/06/24 17:27 Urine Glucose (UA) Negative (Negative) 08/06/24 17: Urine Ketones Trace (Negative) H 08/06/24 17: Urine Blood Negative (Negative) 08/06/24 17:27 Urine Nitrite Negative (Negative) 08/06/24 17:27 Urine Bilirubin Negative (Negative) 08/06/24 17: Urine Urobilinogen Negative (Negative) 08/06/24 17:27 Ur Leukocyte Esterase 1+ (Negative) H 08/06/24 17:27 Urine WBC (Auto) 6-10 /hpf (0-5) H 08/06/24 17:27 Urine RBC (Auto) 0-2 /hpf (0-2) 08/06/24 17:27 U Hyaline Cast (Auto) 0-2 /lpf (0-2) 08/06/24 17:27 U Epithel Cells (Auto) 0-2 /hpf (0-2) 08/06/24 17:27 Urine Bacteria (Auto) None Seen (None Seen) 08/06/24 17:27 Adenovirus (PCR) Not Detected (NotDetected) 08/06/24 17:27 B. pertussis DNA (PCR) Not Detected (NotDetected) 08/06/24 17:27 B.parapertussis DNA PCR Not Detected (NotDetected) 08/06/24 17:27 C. pneumoniae DNA (PCR) Not Detected (NotDetected) 08/06/24 17:27 Coronavirus OC43 (PCR) Not Detected (NotDetected) 08/06/24 17:27 Coronavirus HKU1 (PCR) Not Detected (NotDetected) 08/06/24 17:27 Coronavirus 229E (PCR) Not Detected (NotDetected) 08/06/24 17:27 SARS-CoV-2 (PCR) Not Detected (NotDetected) 08/06/24 17:27 Coronavirus NL63 (PCR) Not Detected (NotDetected) 08/06/24 17:27 Human Metapneumovir PCR Not Detected (NotDetected) 08/06/24 17:27 Influenza Type A (PCR) Not Detected (NotDetected) 08/06/24 17:27 Influenza Type B (PCR) Not Detected (NotDetected) 08/06/24 17:27 M. pneumoniae (PCR) Not Detected (NotDetected) 08/06/24 17:27 Parainfluenza 1 (PCR) Not Detected (NotDetected) 08/06/24 17:27 Parainfluenza 2 (PCR) Not Detected (NotDetected) 08/06/24 17:27 Parainfluenza 3 (PCR) Not Detected (NotDetected) 08/06/24 17:27 Parainfluenza 4 (PCR) Not Detected (NotDetected) 08/06/24 17:27 RSV (PCR) Not Detected (NotDetected) 08/06/24 17:27 Entero/Rhino (PCR) Not Detected (NotDetected) 08/06/24 17:27 Blood Type AB Positive 08/06/24 15:59 Antibody Screen NEGATIVE 08/06/24 15:59 Impressions Chest X-Ray 08/06/24 15:44 Chest radiograph, one view History: Chest pain Comparison: None Findings: Single AP view of the chest performed. Low lung volumes which results in crowding of the bronchovascular structures. No focal consolidation or pleural effusion. No pneumothorax. The cardiomediastinal silhouette is within normal limits. Normal pulmonary vascularity. No evidence for lymphadenopathy. No visualized bony or soft tissue abnormality. Impression: Normal chest radiograph Electronically signed by Hernandez Benítez 08-06-2024 4:[address] 08/06/24 15:[address] without contrast CT angiogram of the neck CT angiogram of the brain with contrast Provided History: Neuro deficit Comparison: None Technique: HEAD CT: Using multidetector thin collimation helical acquisition technique, axial, coronal and sagittal CT images from the skull base to the vertex were obtained without intravenous contrast. HEAD and NECK CTA: During rapid bolus intravenous injection of nonionic contrast material, axial images were obtained using thin collimation multidetector helical technique from the base of the neck through the Vertex of vertex of the head. This CT angiogram data was reconstructed at thin intervals with mild overlap. 3D reconstructions were obtained. The axial source images, multiplanar reformations, 3D reconstructions in both maximum intensity projection display and volume rendered models were reviewed. Dose reduction techniques were achieved by using automatic exposure control and/or adjustment of mA and/or kV according to patient size and/or use of iterative reconstruction technique. Findings: Head CT: There is no intracranial hemorrhage, mass effect, or midline shift. Gomez/white matter differentiation in both cerebral hemispheres is preserved. Ventricles are proportionate to the cerebral sulci. There is moderate cerebral atrophy. Moderate to marked, patchy low-attenuation changes in the white matter, most suggestive of sequelae of chronic small vessel ischemic disease. Left mastoid air cell effusion. Head CTA demonstrates no aneurysm or stenosis of the major intracranial arteries. Neck CTA demonstrates no stenosis of the major cervical arteries. The origins of the great vessels from the aortic arch are patent. The normal distal right internal carotid artery measures 5 mm. The normal distal left internal carotid artery measures 5 mm. No mass is noted within the visualized portions of the cervical soft tissues or lung apices. Impression: 1. Head CTA demonstrates no aneurysm or stenosis of the major intracranial arteries, 2. Neck CTA demonstrates no stenosis of the major cervical arteries. 3. No intracranial hemorrhage on the noncontrast head CT. Findings discussed with Dr. Aguirre by Dr. Benítez at 4:05 PM 08/06/2024 Electronically signed by Hernandez Benítez 08-06-2024 4:05 PM Head CTA 08/06/24 15:[address] without contrast CT angiogram of the neck CT angiogram of the brain with contrast Provided History: Neuro deficit Comparison: None Technique: HEAD CT: Using multidetector thin collimation helical acquisition technique, axial, coronal and sagittal CT images from the skull base to the vertex were obtained without intravenous contrast. HEAD and NECK CTA: During rapid bolus intravenous injection of nonionic contrast material, axial images were obtained using thin collimation multidetector helical technique from the base of the neck through the Vertex of vertex of the head. This CT angiogram data was reconstructed at thin intervals with mild overlap. 3D reconstructions were obtained. The axial source images, multiplanar reformations, 3D reconstructions in both maximum intensity projection display and volume rendered models were reviewed. Dose reduction techniques were achieved by using automatic exposure control and/or adjustment of mA and/or kV according to patient size and/or use of iterative reconstruction technique. Findings: Head CT: There is no intracranial hemorrhage, mass effect, or midline shift. Gomez/white matter differentiation in both cerebral hemispheres is preserved. Ventricles are proportionate to the cerebral sulci. There is moderate cerebral atrophy. Moderate to marked, patchy low-attenuation changes in the white matter, most suggestive of sequelae of chronic small vessel ischemic disease. Left mastoid air cell effusion. Head CTA demonstrates no aneurysm or stenosis of the major intracranial arteries. Neck CTA demonstrates no stenosis of the major cervical arteries. The origins of the great vessels from the aortic arch are patent. The normal distal right internal carotid artery measures 5 mm. The normal distal left internal carotid artery measures 5 mm. No mass is noted within the visualized portions of the cervical soft tissues or lung apices. Impression: 1. Head CTA demonstrates no aneurysm or stenosis of the major intracranial arteries, 2. Neck CTA demonstrates no stenosis of the major cervical arteries. 3. No intracranial hemorrhage on the noncontrast head CT. Findings discussed with Dr. Aguirre by Dr. Benítez at 4:05 PM 08/06/2024 Electronically signed by Hernandez Benítez 08-06-2024 4:05 PM Neck CTA 08/06/24 15:[address] without contrast CT angiogram of the neck CT angiogram of the brain with contrast Provided History: Neuro deficit Comparison: None Technique: HEAD CT: Using multidetector thin collimation helical acquisition technique, axial, coronal and sagittal CT images from the skull base to the vertex were obtained without intravenous contrast. HEAD and NECK CTA: During rapid bolus intravenous injection of nonionic contrast material, axial images were obtained using thin collimation multidetector helical technique from the base of the neck through the Vertex of vertex of the head. This CT angiogram data was reconstructed at thin intervals with mild overlap. 3D reconstructions were obtained. The axial source images, multiplanar reformations, 3D reconstructions in both maximum intensity projection display and volume rendered models were reviewed. Dose reduction techniques were achieved by using automatic exposure control and/or adjustment of mA and/or kV according to patient size and/or use of iterative reconstruction technique. Findings: Head CT: There is no intracranial hemorrhage, mass effect, or midline shift. Gomez/white matter differentiation in both cerebral hemispheres is preserved. Ventricles are proportionate to the cerebral sulci. There is moderate cerebral atrophy. Moderate to marked, patchy low-attenuation changes in the white matter, most suggestive of sequelae of chronic small vessel ischemic disease. Left mastoid air cell effusion. Head CTA demonstrates no aneurysm or stenosis of the major intracranial arteries. Neck CTA demonstrates no stenosis of the major cervical arteries. The origins of the great vessels from the aortic arch are patent. The normal distal right internal carotid artery measures 5 mm. The normal distal left internal carotid artery measures 5 mm. No mass is noted within the visualized portions of the cervical soft tissues or lung apices. Impression: 1. Head CTA demonstrates no aneurysm or stenosis of the major intracranial arteries, 2. Neck CTA demonstrates no stenosis of the major cervical arteries. 3. No intracranial hemorrhage on the noncontrast head CT. Findings discussed with Dr. Aguirre by Dr. Benítez at 4:05 PM 08/06/2024 Electronically signed by Hernandez Benítez 08-06-2024 4:05 PM Ankle X-Ray 08/06/24 15:55 Study: Right ankle 3 views History: Pain Comparison: None Findings: Transversely oriented slightly oblique fracture through the distal fibula at the level of the ankle joint. The medial and posterior malleolus appear intact. Alignment is anatomic. Joint spaces are well maintained. There is significant lateral ankle soft tissue swelling and edema. The talar dome appears intact. Bone mineralization is decreased. Plantar calcaneal enthesophyte. Impression: Fracture of the distal fibula, as above. Electronically signed by Hernandez Benítez 08-06-2024 4:15 PM Elbow X-Ray 08/06/24 16:23 Study: Left elbow 2 views History: Pain Comparison: None Findings: There is no acute fracture or dislocation. Alignment is anatomic. Joint spaces are well maintained. Small osteophytes of the radial head and distal humerus. There is no joint effusion or significant soft tissue swelling. Bone mineralization is normal. Impression: No acute bony abnormality Electronically signed by Hernandez Benítez 08-06-2024 5:22 PM Shoulder X-Ray 08/06/24 16:23 Study: Left shoulder 2 views History: Pain Comparison: None Findings: There is no acute fracture or dislocation. Alignment is anatomic. Joint spaces are well maintained. There is no joint effusion or significant soft tissue swelling. Bone mineralization is normal. Impression: No acute bony abnormality Electronically signed by Hernandez Benítez 08-06-2024 5:22 PM Brain MRI 08/07/24 17:15 MRI OF THE BRAIN WITHOUT CONTRAST CLINICAL HISTORY: Stroke like symptoms. COMPARISON STUDY: Head CT and CTA of the head August 06, 2024. TECHNIQUE: Utilizing a 1.5 Gwen magnet and dedicated coil, multiplanar, multiecho imaging of the brain was performed without IV contrast. FINDINGS: There are numerous small foci of restricted diffusion within the left frontal and parietal lobes. These are hypointense on the ADC map. There is no mass effect. There is no evidence for hemorrhagic conversion. Ventricular system is unremarkable. Basal cisterns are patent. There are no extra axial collections. Flow-voids for the major intracranial vessels are present. Extensive white matter T2 hyperintense foci suggest small vessel disease. Calvarial signal is normal. Large left mastoid effusion is incidentally noted. There is no fluid within the right mastoid air cells. IMPRESSION: 1. Numerous small foci of restricted diffusion within the left frontal and parietal lobes consistent with acute infarcts. The appearance suggests an embolic etiology. 2. No intracranial hemorrhage. No mass effect. 3. Extensive small vessel disease. 4. Left mastoid effusion. ACT 112: Negative or not required by law. Electronically signed by: Emilio Juarez M.D. 08/07/2024 1:45 PM
--- NOTE | 2024-08-08 11:16 | Pharmacy Report ---
- Date of Service August 08, 2024 - Pharmacy CVA/TIA Medication Review Medications to Prevent Stroke handout has been added to the patients discharge packet. Antiplatelet(s) * Antiplatelet therapy deferred per provider Cholesterol * High intensity statin: atorvastatin 40 mg daily DVT Prophylaxis * see below Therapeutic Anticoagulation * Hx Afib/Aflutter noted, and patient is currently receiving eliquis Type 2 Diabetes * Patient does not have T2DM
--- NOTE | 2024-08-08 14:32 | Ultrasound Report ---
BILATERAL LOWER EXTREMITY VENOUS DOPPLER CLINICAL HISTORY: PFO embolic stroke COMPARISON STUDY: No previous studies for comparison. TECHNIQUE: Sonography of the deep venous system of the bilateral lower extremities was performed. Co mpression and augmentation were evaluated. FINDINGS: The bilateral common femoral, superficial femoral and popliteal veins were compressible. A ugmentation was normal. Flow was shown within the deep calf vessels. IMPRESSION: No evidence of deep venous thrombus within the bilateral lower extremities. ACT 112: Negative or not required by law. Electronically signed by: Emilio Juarez M.D. 08/08/2024 2:30 PM
--- NOTE | 2024-08-08 14:46 | XRay Report ---
XR ankle RT min 3V routine CLINICAL HISTORY: pain, true mortise view please COMPARISON: 08/06/2024 FINDINGS: Splint remains. Distal fibula fracture has stable alignment. IMPRESSION: Stable alignment. ACT 112: Negative or not required by law. Electronically signed by: Avila Quintanilla M.D. 08/08/2024 2:45 PM
--- NOTE | 2024-08-08 16:17 | Electrocardiogram Report ---
Test Reason : Blood Pressure : */* mmHG Vent. Rate : 74 BPM Atrial Rate : 74 BPM P-R Int : 176 ms QRS Dur : 132 ms QT Int : 434 ms P-R-T Axes : -21 -44 97 degrees QTcB Int : 481 ms Normal sinus rhythm Left axis deviation Left bundle branch block Abnormal ECG When compared with ECG of 20-Aug-2022 12:29, No significant change was found Confirmed by Christian Paul ([id number]) on 08/08/2024 4:17:37 PM Referred By: REFERRED SELF Confirmed By: Christian Paul
--- NOTE | 2024-08-08 17:28 | Hospitalist Progress Note ---
Date of Service August 08, 2024 Assessment & Plan (1) Stroke-like symptoms: (2) Right fibular fracture: (3) Hypertension: (4) Hypothyroidism: (5) Hyperlipidemia: Plan Patient is a 78-year-old female with a past medical history of Graves' disease, hypertension, hyperlipidemia, A-fib, neuropathy. She presents today as a stroke alert after her found her on the floor at 3 PM in her bedroom, last known well 08/05. The patient is confused and has expressive aphasia. she is here for stroke workup, CT head, head and neck CTAs negative for acute processes. She was also found to have a right distal fibular fracture. The patient does not remember falling. 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 likely embolic source not with afib as of yet to consider event monitor CXR negative - Biofire negative - telestroke recommends dual antiplatelet therapy, plavix load on admission, permissive hypertension - increase Atorvastatin 20 mg to 40 mg daily now - adjust prn with lipid panel ordered since history of afib may need to discuss with neurology timing of starting AC -may need surgery, awaiting input from ortho. will consult cardio for preop clearance in setting of acute stroke and small PFO.. #right fibular fracture, found on ground, immobilize and ortho consult #hypothyroidism History of Graves' disease s/p irradiation history of A-fib thought to be related to thyroid dysfunction, corrected TSH normal continue levothyroxine Chronic stable diagnoses: hx of a fib- NSR on monitor, continue carvedilol, not on chronic AC GERDcontinue famotidine Neuropathycontinue gabapentin Goutcontinue allopurinol VTE ppx: SCDs; deferred chemical PPx given stroke workup above Diet: repeat dysphagia screen ordered, if passes can advance to heart healthy diet - consult speech 08/07/24 passed dysphagia screen will need post discharge speech PT/OT eval Admission and Anticipated Discharge Date Admission Date: August 06, 2024 Subjective Patient reports no new symptoms. Physical Exam Physical Exam: no focal neurologic loss or facial asymetry cardiac is regular lungs are clear abd is soft and non tender Results & Data Results & Data Vital Signs (Past 12 Hours) Vital Signs Temp Pulse Resp BP Pulse Ox O2 Del Method 08/08/24 15:28 36.5 C 86 18 173/95 H 93 Room Air 08/08/24 11:37 36.8 C 79 20 167/99 H 93 Room Air 08/08/24 07:34 37.0 C 74 19 154/91 H 96 Room Air PG Care Time/CCT Total # of Minutes Spent Total Time Spent with Patient: Total time spent is greater than 50% in coordination of care (as documented) at patient's floor/unit and/or counseling patient: Coding Level of Care Code 16444 SUB INP/OBS CARE 3/50MIN Diagnoses Stroke-like symptoms R29.90 Right fibular fracture S82.401A Hypertension I10 Hypothyroidism E03.9 Hyperlipidemia E78.5 Time Spent (min) 50
[2024-08-09] MEDS: carvediloL 12.5 MG TAB PO ONE (03:08)
[2024-08-09 06:41] LABS: Basophils # (auto) 0.04 K/uL (0.00-0.20); Basophils % (auto) 0.3 %; Eosinophils # (auto) 0.16 K/uL (0.00-0.50); Eosinophils % (auto) 1.3 %; Hematocrit (blood only) 38.6 % (37.0-47.0); Hemoglobin 13.3 g/dl (12.0-16.0); Immature Granulocytes # (auto) 0.04 K/uL (0.01-0.20); Immature Granulocytes % (auto) 0.3 %; Lymphocytes # (auto) 2.79 K/uL (1.20-3.40); Lymphocytes % (auto) 23.2 %; Mean Corpuscular Hemoglobin 31.2 pg (25.0-34.0); Mean Corpuscular Hgb Conc 34.5 g/dL (32.0-36.0); Mean Corpuscular Volume 90.6 fL (80.0-100.0); Mean Platelet Volume 9.2 fL (9.4-12.4); Monocytes # (auto) 1.61 K/uL (0.11-0.59); Monocytes % (auto) 13.4 %; Neutrophils % (auto) 61.5 %; Platelet Count 239 K/uL (130-400); RDW Coefficient of Variation 13.2 % (11.5-14.5); RDW Standard Deviation 43.3 fL (36.4-46.3); Red Blood Count 4.26 M/uL (4.20-5.40); White Blood Count 12.04 K/ul (4.8-10.8)
[2024-08-09 06:52] LABS: BUN Creatinine Ratio 19.8 (10-20); Calcium 9.4 mg/dl (8.6-10.3); Creatinine Clr Calc Pharmacy 63.8 ml/min; Potassium 3.8 mmol/L (3.5-5.1)
[2024-08-09] MEDS: carvediloL 12.5 MG TAB PO SCH (08:02)
--- NOTE | 2024-08-09 10:36 | Cardiology Consultation ---
Date of Consultation August 09, 2024 Assessment & Plan (1) Embolic stroke: (2) Paroxysmal A-fib: (3) Closed fracture of distal end of right fibula: (4) Hypertension: Plan 78-year-old woman with remote history of paroxysmal atrial fibrillation and current echocardiogram showing small PFO who was admitted with embolic appearing CVA. Agree with initiation of apixaban 5 mg twice daily (full dose given age less than 80, weight greater than 60 kg, normal renal function). However, since she is currently in sinus rhythm and would benefit from operative repair of her fibular fracture, would hold further apixaban until 24 hours after surgical repair of her fracture. She should be off the apixaban for at least 24 hours prior to surgery, since she did receive a dose this morning would not recommend surgery prior to tomorrow afternoon or preferably the day after. She had no history of symptoms suggesting myocardial ischemia during a modest workload (housework) and her admission troponin was normal despite the adrenergic stress of acute CVA, suggesting she would be low risk for perioperative cardiac complications, therefore she could proceed to operative repair of her right ankle fracture without further cardiac testing. Also agree with ambulatory telemetry (MCOT monitor) upon discharge. Although the decision to chronically anticoagulate would not depend on evidence of atrial fibrillation, it would be helpful to know how frequently this occurs and whether her rate is controlled. If atrial fibrillation is documented and her rate is suboptimally controlled, would consider increasing carvedilol or substituting metoprolol for carvedilol as an outpatient. Even if atrial fibrillation is not demonstrated, given her past history and the embolic CVA as well as the presence of PFO, absent the development of major contraindications would continue anticoagulation with apixaban long-term. She would benefit from cardiology follow-up as an outpatient, I will attempt to learn who her prior hod carrier was, if they are unavailable I would be glad to see her in follow-up. Dr. Moffett will be covering the hospital tomorrow, please contact him if any immediate questions. I will return to hospital coverage on and will check in on her then. History of Present Illness Reason for Consultation: preop clearance for ankle surgery Requesting Physician: Garry Leija Attending Physician: Garry Leija History of Present Illness 78-year-old woman with remote history of paroxysmal atrial fibrillation, no other cardiac history, who was admitted after being found on the floor by her with new onset confusion/expressive aphasia and evidence of CVA with multiple embolic appearing lesions in the left frontal and parietal lobes. Details of her prior atrial fibrillation were not immediately available. Per Dr. Mosher's history and physical of 06/26/2023 prior to knee replacement, the patient had remote history of atrial fibrillation during a time of thyroid dysfunction, she apparently had no recurrence and was no longer followed by cardiology nor chronically anticoagulated. She was on aspirin and a beta- lukas. Upon admission, head and neck CTA studies were negative, clopidogrel was added to her aspirin. After neurologic evaluation/MRI, given embolic pattern it was recommended that she initiate apixaban. At the time of my evaluation, the patient was resting comfortably and easily awakened. She answers simple questions appropriately and had no somatic complaints beyond right ankle discomfort (fibular fracture). She denies any chest pain, dyspnea on exertion, palpitations, prior presyncope or syncope. She notes that she can perform daily housework without difficulty. Telemetry showed sinus rhythm in the 60 bpm range, one 9 beat run of ventricular tachycardia overnight, no other dysrhythmias Allergies Allergy/AdvReac Type Severity Reaction Status Date / Time No Known Allergies Allergy Verified 06/30/23 07:32 Home Medications Medication Instructions Recorded Confirmed Type atorvastatin 20 mg tablet 20 mg PO QPM 02/18/21 08/06/24 History carvedilol 12.5 mg tablet 12.5 mg PO BID 02/18/21 08/06/24 History famotidine 10 mg tablet 10 mg PO BID 02/18/21 08/06/24 History levothyroxine 100 mcg capsule 100 mcg PO QAM 02/18/21 08/06/24 History cholecalciferol (vitamin D3) 125 50,000 unit PO Q30D 02/18/22 08/06/24 History mcg (5,000 unit) tablet (Vitamin D3) propylene glycol 0.6 % eye drops 1 drp ophthalmic (eye) QAM PRN Dry 02/18/22 08/06/24 History (Systane Complete) Eyes simethicone 125 mg capsule (Gas 125 mg PO BID 02/18/22 08/06/24 History Relief (simethicone)) sennosides 8.6 mg-docusate sodium 1 tab-cap PO DAILY #14 tabs 02/05/23 01/04/25 Rx 50 mg tablet (Senokot-S) sennosides 8.6 mg tablet (Senokot) 8.6 mg PO BID prevent constipation 06/26/23 08/06/24 Rx 14 days #28 tabs allopurinol 100 mg tablet 100 mg PO DAILY 06/23/24 08/06/24 History gabapentin 100 mg capsule 100 mg PO HS 06/23/24 08/06/24 History Patient History Medical History Right knee DJD Encounter for pre-operative examination Elevated hemoglobin A1c Neuropathy Obesity History of atrial fibrillation History of COVID-19 Hyperlipidemia GERD (gastroesophageal reflux disease) Hypothyroidism Hypertension Surgical History History of total left knee replacement History of tooth extraction History of thyroid irradiation History of bilateral tubal ligation History of appendectomy History of colonoscopy Hx of wisdom tooth extraction Hx of tonsillectomy Hx of bilateral cataract extraction Family History Mother Liver cancer Colon cancer Diabetes Father Colon cancer Lung cancer Other No family history of adverse response to anesthesia Social History Smoking Status: Never smoker Tobacco Type: Cigarettes Second Hand Exposure: No; Do You Dip or Chew Tobacco: No; Hx Alcohol Use: No Hx Substance Use: No Preferred Language: Slovak Communication Ability: Effective Ordnance Handler Required: No Beliefs That Will Affect Care: None Current Living Situation: Spouse Feels Safe at Home: Yes Assistive Devices: None Physical Exam Physical Exam: Elderly white female in no distress. BP 157/87 mmHg. Pulse 70 bpm and regular. Respirations 18 and unlabored. Skin: no ecchymoses or generalized lesions. HEENT: unremarkable. Neck: JVP at the clavicle at 90 degrees, no carotid bruits. Lungs: clear. Cardiac: regular rhythm, normal S1-2, no murmur. Abdomen: benign. Extremities: no edema, pulses intact. Right foot splinted, excellent capillary refill (1 second) Neurologic: normal affect and conversation, answer simple questions appropriately, grossly nonfocal. Results & Data Vital Signs (Past 12 Hours) Vital Signs Temp Pulse Pulse Resp BP BP Pulse Ox 08/09/24 07:30 98.2 F 69 18 157/87 H 95 08/09/24 03:31 98.8 F 80 18 148/79 H 95 08/08/24 23:05 87 O2 Del Method 08/09/24 07:30 Room Air 08/09/24 03:31 Room Air 08/08/24 23:05 Laboratory Results Troponin 11.7. WBC 12.04, normal hemoglobin and platelet count. Normal electrolytes, BUN 16, creatinine 0.81. Hemoglobin A1c 6.4%. Magnesium 2.2. Cholesterol 139, HDL 50, LDL 49. TSH 3.011. Diagnostic Findings ECG on admission showed sinus rhythm with left bundle branch block. Compared with 08/20/2022, no significant change. Echocardiogram showed EF 50 to 55% with septal motion consistent with conduction abnormality, mild LVH, no significant valvular abnormalities. Possible PFO, small pericardial effusion without evidence of tamponade. Overall, no significant change compared with 09/05/2022 study. Normal chest x-ray. Unremarkable head and neck CTA. Negative lower extremity Doppler for DVT. Brain MRI with numerous small foci left frontal and parietal lobes consistent with infarcts which appear embolic. PG Care Time/CCT Total # of Minutes Spent Total Time Spent with Patient: Total time spent is greater than 50% in coordination of care (as documented) at patient's floor/unit and/or counseling patient: Coding Level of Care Code 35224 IN/OBS CONSULT LVL 4,60M Diagnoses Embolic stroke I63.9 Paroxysmal A-fib I48.0 Closed fracture of distal end of right fibula S82.831A Hypertension I10
--- NOTE | 2024-08-09 12:20 | Orthopedic Progress Note ---
Date of Service August 09, 2024 Assessment & Plan (1) Closed fracture of distal end of right fibula: Plan: Splint was changed today by myself with assistance from RN. I applied a well- padded Ortho-Glass short leg posterior and U stirrup splint to the right lower extremity. Capillary refill less than 2 seconds and no sensory deficits to light touch following application. Nonweightbearing right lower extremity with walker assistance. PT/OT. Ice and elevation. Pain control and DVT prophylaxis per primary service. She received eliquis this morning. Plan will be to take patient to OR afternoon for exam under anesthesia and possible ORIF. Order in place for 48 hour eliquis hold. Follow up in our office in 2 weeks. Admission and Anticipated Discharge Date Admission Date: August 06, 2024 Subjective Patient seen in bed today. Her is present. She states that the pain in her ankle is the best that it has been since the injury. She denies any numbness or tingling in her toes Physical Exam Constitutional: Resting comfortably no distress. Lying in bed. Sleeping initially. Cardiovascular: Right DP pulse 2+ Musculoskeletal: Ortho-Glass splint taken down today. Mild soft tissue swelling about the lower leg/ankle. Ecchymosis is present laterally. Skin is intact. Able to move all toes. No calf tenderness. Skin: Pain, warm, dry. Intact. Ecchymosis to right ankle region Neurologic: No sensory deficits to light touch in right toes Results & Data Vital Signs (Past 12 Hours) Vital Signs Temp Pulse Resp BP BP Pulse Ox O2 Del Method 08/09/24 11:26 97.7 F 68 18 158/89 H 94 Room Air 08/09/24 07:30 98.2 F 69 18 157/87 H 95 Room Air 08/09/24 03:31 98.8 F 80 18 148/79 H 95 Room Air
--- NOTE | 2024-08-09 15:50 | Orthopedic Progress Note ---
Date of Service August 09, 2024 Assessment & Plan (1) Closed fracture of distal end of right fibula: Plan: Per Dr. De Paz patient would benefit from an exam under anesthesia, possible ORIF of her right ankle. I explained this to the patient and she is agreeable to proceed. She has been cleared by cardiology for surgery. She is currently on Eliquis and had her a.m. dose this morning. We will need to hold this for 48 hours prior to her upcoming procedure. She has been placed on the operating room schedule for August 11, [address] De Paz. Her Eliquis has been held as of today. She is aware of the plan and agrees to proceed with surgery. Ri sks and benefits of the procedure were discussed with the patient and include but are not limited to infection, pain, bleeding, scarring, nerve and blood vessel damage, wound problems, weakness, stiffness, incomplete relief of symptoms, hardware failure, malunion, nonunion, arthritis, blood clots, embolisms, heart attack, stroke and . All questions were answered and informed consent was obtained. Consent was placed on patient's chart. She will be made n.p.o. after midnight on August 11, 2024. Encouraged elevation of her ankle. Continue the splint. Continue nonweightbearing. She understands and agrees with plan. We will continue to follow. Admission and Anticipated Discharge Date Admission Date: August 06, 2024 Subjective Patient is resting in bed. No complaints of pain in the right ankle. She is sleeping but arousable and awakened. She wished to go over the consent today. Physical Exam Musculoskeletal: Right ankle in splint, comfortable. Toes mobile. Results & Data Vital Signs (Past 12 Hours) Vital Signs Temp Pulse Resp BP Pulse Ox O2 Del Method 08/09/24 15:09 36.9 C 65 18 152/82 H 95 Room Air 08/09/24 11:26 36.5 C 68 18 158/89 H 94 Room Air 08/09/24 07:30 36.8 C 69 18 157/87 H 95 Room Air
--- NOTE | 2024-08-09 22:14 | Hospitalist Progress Note ---
Date of Service August 09, 2024 Assessment & Plan (1) Stroke-like symptoms: (2) Right fibular fracture: (3) Hypertension: (4) Hypothyroidism: (5) Hyperlipidemia: Plan Patient is a 78-year-old female with a past medical history of Graves' disease, hypertension, hyperlipidemia, A-fib, neuropathy. She presents today as a stroke alert after her found her on the floor at 3 PM in her bedroom, last known well 08/05. The patient is confused and has expressive aphasia. she is here for stroke workup, CT head, head and neck CTAs negative for acute processes. She was also found to have a right distal fibular fracture. The patient does not remember falling. 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 likely embolic source not with afib as of yet to consider event monitor CXR negative - Biofire negative - telestroke recommends dual antiplatelet therapy, plavix load on admission, permissive hypertension - increase Atorvastatin 20 mg to 40 mg daily now - adjust prn with lipid panel ordered since history of afib may need to discuss with neurology timing of starting AC -will proceed with surgery, holding eliquis. #right fibular fracture, found on ground, immobilize and ortho consult: surgery repair on . #hypothyroidism History of Graves' disease s/p irradiation history of A-fib thought to be related to thyroid dysfunction, corrected TSH normal continue levothyroxine Chronic stable diagnoses: hx of a fib- NSR on monitor, continue carvedilol, not on chronic AC GERDcontinue famotidine Neuropathycontinue gabapentin Goutcontinue allopurinol VTE ppx: SCDs; deferred chemical PPx given stroke workup above Diet: repeat dysphagia screen ordered, if passes can advance to heart healthy diet - consult speech 08/07/24 passed dysphagia screen will need post discharge speech PT/OT eval Admission and Anticipated Discharge Date Admission Date: August 06, 2024 Subjective 78 yo female reports no new symptoms. Physical Exam Physical Exam: no focal neurologic loss or facial asymetry cardiac is regular lungs are clear abd is soft and non tender Results & Data Results & Data Vital Signs (Past 12 Hours) Vital Signs Temp Pulse Pulse Resp BP BP Pulse Ox 08/09/24 19:22 36.8 C 70 18 153/90 H 94 08/09/24 15:09 36.9 C 65 18 152/82 H 95 08/09/24 13:40 69 08/09/24 11:26 36.5 C 68 18 158/89 H 94 O2 Del Method 08/09/24 19:22 Room Air 08/09/24 15:09 Room Air 08/09/24 13:40 08/09/24 11:26 Room Air PG Care Time/CCT Total # of Minutes Spent Total Time Spent with Patient: Total time spent is greater than 50% in coordination of care (as documented) at patient's floor/unit and/or counseling patient: Coding Level of Care Code 70073 SUB INP/OBS CARE 2/35MIN Diagnoses Stroke-like symptoms R29.90 Right fibular fracture S82.401A Hypertension I10 Hypothyroidism E03.9 Hyperlipidemia E78.5
[2024-08-10 06:47] LABS: Hematocrit (blood only) 38.7 % (37.0-47.0); Hemoglobin 13.3 g/dl (12.0-16.0); Mean Corpuscular Hemoglobin 31.3 pg (25.0-34.0); Mean Corpuscular Hgb Conc 34.4 g/dL (32.0-36.0); Mean Corpuscular Volume 91.1 fL (80.0-100.0); Mean Platelet Volume 9.4 fL (9.4-12.4); Platelet Count 242 K/uL (130-400); RDW Coefficient of Variation 13.2 % (11.5-14.5); RDW Standard Deviation 43.9 fL (36.4-46.3); Red Blood Count 4.25 M/uL (4.20-5.40); White Blood Count 11.49 K/ul (4.8-10.8)
[2024-08-10 07:04] LABS: BUN Creatinine Ratio 26.9 (10-20); Calcium 9.3 mg/dl (8.6-10.3); Creatinine Clr Calc Pharmacy 66.2 ml/min; Potassium 3.7 mmol/L (3.5-5.1)
--- NOTE | 2024-08-10 10:19 | Orthopedic Progress Note ---
Date of Service August 10, 2024 Assessment & Plan (1) Closed fracture of distal end of right fibula: Plan: Patient has a right distal fibula fracture. She is in a sugar-tong and posterior splint. Plan is for her to undergo exam under anesthesia, possible open reduction internal fixation of her right distal fibula fracture with Dr. De Paz tomorrow on August 11, 2024. Eliquis is currently held. Encouraged elevation above her heart as frequently as possible. Also encouraged to maintain nonweightbearing of the right lower extremity. She should ask for assistance anytime that she needs to get up out of bed. She may have a regular diet today but is n.p.o. after midnight. We will evaluate her skin and swelling tomorrow prior to surgery to determine if we can proceed tomorrow or not. Informed consent for surgery is on the chart. Patient seems understand and agree with the plan. All questions were answered. Admission and Anticipated Discharge Date Admission Date: August 06, 2024 Subjective Patient sitting out of bed. Overall doing well. Denies pain in the right ankle. Right foot is elevated on the stool as she is sitting in the chair. Nursing reports that she had a BM while walking to the bathroom and bearing weight on her right leg today. She did get stool on the splint and Forest bandage. The Forest bandage has been changed but they think that she got it on the new Forest bandage as well. She did use a walker but she did not ask for nursing assistance prior to getting out of bed. Physical Exam Musculoskeletal: Exam of her right lower extremity: Her toes move freely. There are some ecchymosis at the base of the second toe but it is nontender to palpation. Dorsalis pedis pulses 1+. She reports sensation to be normal. She is able to dorsiflex her big toe and hold against resistance. Posterior with sugar-tong splint is applied. She reports the splint to be comfortable. She is able to independently lift her leg. She can flex her knee. Splint was not removed today to look at her skin. She was reclined in the chair that she was sitting on per her request. This helped also to elevate her leg. Results & Data Vital Signs (Past 12 Hours) Vital Signs Temp Pulse Pulse Resp BP Pulse Ox O2 Del Method 08/10/24 07:18 36.6 C 75 17 135/80 96 Room Air 08/10/24 02:52 36.9 C 73 18 152/85 H 96 Room Air 08/09/24 22:56 69 08/09/24 22:49 36.9 C 76 18 129/73 91 Room Air Laboratory Results 08/10/24 Range/Units 06:04 WBC 11.49 H (4.8-10.8) K/ul RBC 4.25 (4.20-5.40) M/uL Hgb 13.3 (12.0-16.0) g/dl Hct 38.7 (37.0-47.0) % MCV 91.1 (80.0-100.0) fL MCH 31.3 (25.0-34.0) pg MCHC 34.4 (32.0-36.0) g/dL RDW Std Deviation 43.9 (36.4-46.3) fL RDW Coeff of Rizwan 13.2 (11.5-14.5) % Plt Count 242 (130-400) K/uL MPV 9.4 (9.4-12.4) fL Sodium 140 (136-145) mmol/L Potassium 3.7 (3.5-5.1) mmol/L Chloride 109 H (98-107) mmol/L Carbon Dioxide 22 (21-32) mmol/L Anion Gap 9 (3-11) BUN 21 (6-23) mg/dl Creatinine 0.78 (0.6-1.2) mg/dl Est Cr Clr Drug Dosing 66.2 ml/min eGFR 77.21 BUN/Creatinine Ratio 26.9 H (10-20) Glucose 158 H (70-99(Fasting)) mg/dl Calcium 9.3 (8.6-10.3) mg/dl
--- NOTE | 2024-08-10 22:27 | Hospitalist Progress Note ---
Date of Service August 10, 2024 Assessment & Plan (1) Stroke-like symptoms: (2) Right fibular fracture: (3) Hypertension: (4) Hypothyroidism: (5) Hyperlipidemia: Plan Patient is a 78-year-old female with a past medical history of Graves' disease, hypertension, hyperlipidemia, A-fib, neuropathy. She presents today as a stroke alert after her found her on the floor at 3 PM in her bedroom, last known well 08/05. The patient is confused and has expressive aphasia. she is here for stroke workup, CT head, head and neck CTAs negative for acute processes. She was also found to have a right distal fibular fracture. The patient does not remember falling. 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 likely embolic source not with afib as of yet to consider event monitor CXR negative - Biofire negative - telestroke recommends dual antiplatelet therapy, plavix load on admission, permissive hypertension - on Atorvastatin 40 mg daily now - adjust prn with lipid panel ordered since history of afib may need to discuss with neurology timing of starting AC -will proceed with surgery, holding eliquis. Surgewry scheduled for 08/11 reviewed labs on 08/10 #right fibular fracture, found on ground, immobilize and ortho consult: surgery repair on . #hypothyroidism History of Graves' disease s/p irradiation history of A-fib thought to be related to thyroid dysfunction, corrected TSH normal continue levothyroxine Chronic stable diagnoses: hx of a fib- NSR on monitor, continue carvedilol, not on chronic AC GERDcontinue famotidine Neuropathycontinue gabapentin Goutcontinue allopurinol VTE ppx: SCDs; deferred chemical PPx given stroke workup above Diet: repeat dysphagia screen ordered, if passes can advance to heart healthy diet - consult speech 08/07/24 passed dysphagia screen will need post discharge speech PT/OT eval Admission and Anticipated Discharge Date Admission Date: August 06, 2024 Subjective 78 yo female reports no new symptoms. Review of Systems Review of Systems: All systems reviewed & are unremarkable except as noted in HPI & below Physical Exam Physical Exam: no focal neurologic loss or facial asymetry cardiac is regular lungs are clear abd is soft and non tender Results & Data Results & Data Vital Signs (Past 12 Hours) Vital Signs Temp Pulse Resp BP BP Pulse Ox O2 Del Method 08/10/24 19:14 36.9 C 81 16 129/80 93 Room Air 08/10/24 15:15 36.4 C L 64 18 163/81 H 94 Room Air 08/10/24 10:50 36.6 C 76 17 138/84 97 Room Air PG Care Time/CCT Total # of Minutes Spent Total Time Spent with Patient: Total time spent is greater than 50% in coordination of care (as documented) at patient's floor/unit and/or counseling patient: Coding Level of Care Code 64832 SUB INP/OBS CARE 2/35MIN Diagnoses Stroke-like symptoms R29.90 Right fibular fracture S82.401A Hypertension I10 Hypothyroidism E03.9 Hyperlipidemia E78.5
[2024-08-11] MEDS ORDERED: ceFAZolin 2000MG 2,000 MG/15 ML SYR IV ONE (06:00)
[2024-08-11 06:13] LABS: Hematocrit (blood only) 36.8 % (37.0-47.0); Hemoglobin 12.6 g/dl (12.0-16.0); Mean Corpuscular Hemoglobin 31.3 pg (25.0-34.0); Mean Corpuscular Hgb Conc 34.2 g/dL (32.0-36.0); Mean Corpuscular Volume 91.5 fL (80.0-100.0); Mean Platelet Volume 9.6 fL (9.4-12.4); Platelet Count 235 K/uL (130-400); RDW Coefficient of Variation 12.9 % (11.5-14.5); RDW Standard Deviation 42.9 fL (36.4-46.3); Red Blood Count 4.02 M/uL (4.20-5.40); White Blood Count 9.71 K/ul (4.8-10.8)
[2024-08-11 06:24] LABS: BUN Creatinine Ratio 25.9 (10-20); Calcium 9.4 mg/dl (8.6-10.3); Creatinine Clr Calc Pharmacy 59.7 ml/min; Potassium 3.7 mmol/L (3.5-5.1)
[2024-08-11] MEDS ORDERED: LIDOCAINE 2% 2 ML VIAL/AMP(20MG/ML) INFIL ONE (12:10)
[2024-08-11] MEDS ORDERED: ONDANSETRON INJ 2 MG/ML 2 ML VIAL ONE (12:10)
[2024-08-11] MEDS ORDERED: DEXAMETHASONE SOD INJ 4 MG/ML VIAL ONE (12:10)
[2024-08-11] MEDS ORDERED: PROPOFOL IV EMULSION 10 MG/ML 20 ML VIAL IV ONE (12:10)
[2024-08-11] MEDS ORDERED: Nursing to Pharmacy Communication SCH (13:30)
[2024-08-11] MEDS ORDERED: fentaNYL citrate PF 100 MCG/2 ML VIAL ONE ×2 (14:20→15:32)
--- NOTE | 2024-08-11 14:35 | History & Physical Bridge Note ---
Date of Service August 11, 2024 History & Physical Bridge Note I have examined the patient, reviewed the History & Physical and in the interval since the performance of the History & Physical I have noted the following changes of clinical significance: no changes noted. Spoke with anesthesia. May need a line for surgery. Spoke with family/ and patient. Plan for exam under anesthesia and if unstable proceed with ORIF of lateral malleolus. The inspection showed that the swelling is appropriate. Skin wrinkles are present. Ironically she does not have any significant medial sided tenderness today. She does have extensive lateral bruising and tenderness over the lateral malleolus. No blistering.
[2024-08-11] MEDS ORDERED: MIDAZOLAM HCL 1 MG/ML 2ML VIAL ONE (14:38)
[2024-08-11] MEDS ORDERED: ROCURONIUM BROMIDE 10 MG/ML 5 ML VIAL IV ONE (14:41)
--- NOTE | 2024-08-11 14:43 | Anesthesiology Consultation ---
Date of Service August 11, 2024 Assessment & Plan Chart Review Chart Review: Acceptable Risk for Surgery and Patient NOT seen in Pre Admission Testing Consults Requested none ASA ASA4 Proposed Anesthesia Anesthesia Type: General and MAC Regional Laterality: Right Site: Popliteal and Adductor Canal Anesthesia Line Insertion: Arterial line Risk / Benefits Reviewed With: PT / POA / Parent / Guardian, Accepts Plan and Informed Consent Obtained Additional Comments: This is a 78 y/o patient with history of CVA on 08/05/24 who had a fall and fractured right ankle. Dr. De Paz plans to examine her under anesthesia under MAC sedation. If decision is made to proceed with surgery, will convert to GA with arterial line BP monitoring in s/o recent stroke. This patient is at increased risk for VA, CVA, give recent events. Patient and understand risks and consent to proceed. Also discussed possible post operative adductor canal and popliteal block for pain pending decision to do surgery. History Surgery Operation Date: 08/11/24 13:45 Proposed Procedures p Exam Under Anesthesia, Possible Right Ankle Open Reduction Internal Fixation - Mauricio De Paz MD Height/Weight Height: 5 ft 6 in Weight: 87.26 kg Allergies Allergy/AdvReac Type Severity Reaction Status Date / Time No Known Allergies Allergy Verified 06/30/23 07:32 Medications Home Medications Medication Instructions Recorded Confirmed Last Taken atorvastatin 20 mg tablet 20 mg PO QPM 02/18/21 08/06/24 06/29/23 21:00 carvedilol 12.5 mg tablet 12.5 mg PO BID 02/18/21 08/06/24 06/30/23 04:00 famotidine 10 mg tablet 10 mg PO BID 02/18/21 08/06/24 06/30/23 04:00 levothyroxine 100 mcg capsule 100 mcg PO QAM 02/18/21 08/06/24 06/30/23 06:00 cholecalciferol (vitamin D3) 125 50,000 unit PO Q30D 02/18/22 08/06/24 06/07/23 mcg (5,000 unit) tablet (Vitamin D3) propylene glycol 0.6 % eye drops 1 drp ophthalmic (eye) QAM PRN Dry 02/18/22 08/06/24 09/09/22 07:30 (Systane Complete) Eyes simethicone 125 mg capsule (Gas 125 mg PO BID 02/18/22 08/06/24 06/30/23 04:00 Relief (simethicone)) sennosides 8.6 mg-docusate sodium 1 tab-cap PO DAILY #14 tabs 09/07/22 08/06/24 06/29/23 08:00 50 mg tablet (Senokot-S) sennosides 8.6 mg tablet (Senokot) 8.6 mg PO BID prevent constipation 06/26/23 08/06/24 Unknown 14 days #28 tabs allopurinol 100 mg tablet 100 mg PO DAILY 06/23/24 08/06/24 Unknown gabapentin 100 mg capsule 100 mg PO HS 06/23/24 08/06/24 Unknown Active Medications Generic Name Dose Route Start Last Admin Trade Name Freq PRN Reason Stop Dose Admin Acetaminophen 650 mg 08/06/24 19:48 08/10/24 20:20 Acetaminophen 325 Mg Tab PO 09/05/24 19:47 650 mg Q4H PRN Administration Pain or Fever Allopurinol 100 mg 08/07/24 09:00 08/11/24 08:32 Allopurinol 100 Mg Tab PO 09/06/24 08:59 100 mg DAILY ROSA Administration Apixaban 5 mg 08/07/24 21:00 08/09/24 08:02 Apixaban 5 Mg Tablet PO 09/06/24 20:59 5 mg BID ROSA Administration Atorvastatin Calcium 40 mg 08/06/24 21:00 08/10/24 20:20 Atorvastatin 40 Mg Tab PO 09/05/24 20:59 40 mg QPM ROSA Administration Carvedilol 12.5 mg 08/09/24 08:00 08/11/24 08:32 Carvedilol 12.5 Mg Tab PO 09/08/24 07:59 12.5 mg BIDM ROSA Administration Famotidine 10 mg 08/06/24 21:00 08/11/24 08:32 Famotidine 10 Mg Tablet PO 09/05/24 20:59 10 mg BID ROSA Administration Gabapentin 100 mg 08/06/24 21:00 08/10/24 20:20 Gabapentin 100 Mg Cap PO 09/05/24 20:59 100 mg HS ROSA Administration Levothyroxine Sodium 100 mcg 08/07/24 06:30 08/11/24 05:24 Levothyroxine Sodium 100 Mcg Tablet PO 09/06/24 06:29 100 mcg DAILYBB ROSA Administration NPO Date Last Intake of Fluids: 08/10/24 Time Last Intake of Fluids: 21:00 Date Last Intake of Solids: 08/10/24 Time Last Intake of Solids: 21:00 Past Medical History Medical History Right knee DJD Encounter for pre-operative examination Elevated hemoglobin A1c A1C 6.3% 09/2022, glucose 169 on 06/03/2023 Neuropathy B/L toes Obesity History of atrial fibrillation No issues x years [place] to be thyroid dysfunction at that time (which was corrected) and she was d/c'd from cardiology. No issues since. Patient taking ASA/beta lukas + managed by PCP. History of COVID-19 03/2022 > resolved GERD (gastroesophageal reflux disease) Exercise / Class Metabolic Activity III < 4 Walking/Shop/Light housework Past Family History Family History Mother Liver cancer Colon cancer Diabetes Father Colon cancer Lung cancer Other No family history of adverse response to anesthesia Past Surgical History Surgical History History of total left knee replacement Left TKA (09/09/22): SAB at L3/4 + PNB at [facility] History of tooth extraction History of thyroid irradiation History of bilateral tubal ligation History of appendectomy History of colonoscopy Hx of wisdom tooth extraction Hx of tonsillectomy Hx of bilateral cataract extraction Past Anesthesia History No Hx of Anesthesia Complications and No Family Hx of Anesthesia Complications History of PONV No Hx of PONV and No Hx of Motion Sickness Social History Smoking Status: Never smoker tobacco type: cigarettes Do You Dip or Chew Tobacco: No Hx Alcohol Use: No Alcohol type: wine alcohol intake frequency: holidays/special occasions only Hx Substance Use: No substance use type: does not use Review of Systems ROS Unobtainable: All systems reviewed & are unremarkable except as noted in HPI & below Physical Exam Vital Signs Last Vital Signs Temp 36.9 C 08/11/24 13:06 Pulse 63 08/11/24 13:06 Resp 18 08/11/24 13:06 BP 176/93 H 08/11/24 13:06 Pulse Ox 97 08/11/24 13:06 O2 Del Method Room Air 08/11/24 13:06 O2 Flow Rate 2 08/07/24 12:07 ENMT Mouth: no TMJ abnormality Thyromental Distance: > or= 3.5 Finger Breadths Mallampati Class: II Neck normal visual inspection and trachea midline; neck extension not limited Respiratory normal respiratory effort Auscultation: lungs clear to auscultation bilaterally Cardiovascular Rate/Rhythm: regular rate and regular rhythm Heart Sounds: no murmur Musculoskeletal Spine: normal cervical ROM Extremities: full ROM of extremities Neurologic moves all extremities Psychiatric Orientation: alert and oriented x 3 Testing Laboratory Results 08/11/24 05:53 08/11/24 05:53 PT 11.2 Seconds (9.0-12.0) 08/06/24 15:59 INR 1.0 (0.9-1.1) 08/06/24 15:59 APTT 24 Seconds (21-31) 08/06/24 15:59 Hemoglobin A1c 6.4 % (4.5-5.6) H 08/07/24 05:30 Urine Color Yellow 08/06/24 17:27 Urine Appearance Clear (Clear) 08/06/24 17:27 Urine pH 6.5 (4.5-7.5) 08/06/24 17:27 Ur Specific [place] > 1.045 (1.000-1.030) H 08/06/24 17:27 Urine Protein Negative (Negative) 08/06/24 17:27 Urine Glucose (UA) Negative (Negative) 08/06/24 17:27 Urine Ketones Trace (Negative) H 08/06/24 17:27 Urine Nitrite Negative (Negative) 08/06/24 17:27 Ur Leukocyte Esterase 1+ (Negative) H 08/06/24 17:27 Urine WBC (Auto) 6-10 /hpf (0-5) H 08/06/24 17:27 Urine RBC (Auto) 0-2 /hpf (0-2) 08/06/24 17:27 U Hyaline Cast (Auto) 0-2 /lpf (0-2) 08/06/24 17:27 U Epithel Cells (Auto) 0-2 /hpf (0-2) 08/06/24 17:27 Urine Bacteria (Auto) None Seen (None Seen) 08/06/24 17:27 Blood Type AB Positive 08/06/24 15:59 Antibody Screen NEGATIVE 08/06/24 15:59 Echocardiogram Date: 08/07/24 EF: 55-60 LV Function: normal possible PFO
[2024-08-11] MEDS ORDERED: HYDROmorphone INJ 1 MG/ML SYRINGE IV PRN (14:47)
[2024-08-11] MEDS ORDERED: fentaNYL citrate PF 100 MCG/2 ML VIAL IV PRN (14:47)
[2024-08-11] MEDS ORDERED: ATROPINE SULFATE 0.1 MG/ML 10ML SYR IV PRN (14:47)
[2024-08-11] MEDS ORDERED: ePHEDrine sulfate 50 MG/ML AMP IV PRN (14:47)
[2024-08-11] MEDS ORDERED: ONDANSETRON INJ 2 MG/ML 2 ML VIAL IV PRN (14:47)
[2024-08-11] MEDS ORDERED: ROPIVACAINE 0.5% 5 MG/ML 30 ML VIAL ONE (14:49)
[2024-08-11] MEDS: ceFAZolin 2,000 MG/15 ML IV PUSH IV ONE (15:17)
[2024-08-11] MEDS ORDERED: PHENYLEPHRINE HCL 10 MG/ML VIAL ONE ×2 (16:06→17:16)
[2024-08-11] MEDS ORDERED: ePHEDrine sulfate 50 MG/5 ML SYR ONE (16:11)
[2024-08-11] MEDS ORDERED: HYDROmorphone INJ 2 MG/ML SYR/VIAL ONE (16:27)
[2024-08-11] MEDS ORDERED: SUGAMMADEX SODIUM 200 MG/2 ML VIAL IV ONE (17:16)
[2024-08-11] MEDS: LIDOCAINE 1%/EPINEPHRINE 1:100,000 50 ML VIAL ONE (17:17)
[2024-08-11] MEDS: BUPIVACAINE/EPINEPHRINE 0.5% MPF 1:200,000 30 ML VIAL ONE (17:17)
--- NOTE | 2024-08-11 17:35 | Operative Report ---
Post Operative Report Pre & Post Diagnosis Operation Date: 08/11/24 13:45 Pre-Op Diagnosis: Closed fracture of distal end of right fibula Post-Op Diagnosis: Closed fracture of distal end of right fibula I identified the patient and participated in the time-out.: Yes Procedure Operation Date: 08/11/24 13:45 Actual Procedures p Exam Under Anesthesia, Right Ankle Open Reduction Internal Fixation(Right) - Mauricio De Paz MD Surgeon Mauricio De Paz MD. Pathology Secretary/Transcriptionist Halima Cadena PA-C; no fellow or resident available. Estimated Blood Loss 5 Findings Consistent with Post-Op Diagnosis Specimens None Anesthesia Type General Regional Description of Procedure Patient was taken to the operating room placed under general anesthesia. Time out and verbal consent was obtained. Risks and benefits of the injection were discussed she was given 2 g of IV Ancef for surgical prophylaxis. I was present during the entire case, please see Dr. De Paz's operative report for further detail. I assisted with tissue retraction, reduction of fracture, implantation of hardware, closure and dressings and splinting. Patient was awakened and transferred to the recovery room in stable condition. I attest to the content of the Intraoperative Record and any orders documented therein. Any exceptions are noted below.
--- NOTE | 2024-08-11 17:36 | Operative Report ---
Post Operative Report Pre & Post Diagnosis Operation Date: 08/11/24 13:45 Pre-Op Diagnosis: Closed fracture of distal end of right fibula Post-Op Diagnosis: Closed fracture of distal end of right fibula With deltoid ligament injury I identified the patient and participated in the time-out.: Yes Procedure Operation Date: 08/11/24 13:45 Actual Procedures p Exam Under Anesthesia, Right Ankle Open Reduction Internal Fixation(Right) - Mauricio De Paz MD Surgeon Mauricio De Paz MD Server Software Engineer Halima Cadena physicians title i assistant no resident or fellow available Estimated Blood Loss 5 Findings Consistent with Post-Op Diagnosis Specimens None Anesthesia Type General Regional Complications none Disposition Accompanied Patient To Recovery: No Disposition: Recovery Room Indications Gely is 78 years old. About 5 days ago she had a stroke and fell. She sustained a right distal fibular fracture. On examination she had medial ankle tenderness and the stability of the fracture was not clear. After checking with her medical doctors and cardiology, I have recommended that she have an exam under anesthesia and ORIF of her the fibular fracture if indicated. She agreed to proceed. Her Eliquis has been held for 48 hours. Description of Procedure Informed consent. Patient identified. She identified the procedure site as the right ankle. I marked with my initials. A preoperative surgical timeout was performed. A preop dose of antibiotics were held pending the evaluation under anesthesia. She was positioned supine on the operating room table with a bump under the right hip. Her splint was removed. There was extensive bruising on the lateral side of the ankle but swelling was mild with positive skin wrinkles. Fluoroscope was brought in and a on stress mortise view was obtained. The mortise was symmetric. External rotation and eversion strength was applied demonstrating pathological widening of the medial clear space of at least 3 -4 mm. There is a fracture of the distal fibula with mild displacement. The decision to proceed with surgery was made. The patient's was informed. She received a dose of IV antibiotics. A tourniquet was applied to the right thigh. Routine prep and drape was performed. The sterile field was opened. DVT prophylaxis with mechanical devices intraoperatively. Postop early mobility and Eliquis. Mechanical devices postop. Limb exsanguinated the Esmarch. Tourniquet inflated to 250 mmHg. A lateral incision was made. Careful dissection was performed. The superficial peroneal nerve was identified and dissected out. Subperiosteal exposure of the fracture was performed. The fracture was opened cleaned of soft tissue and reduced. Held with a bone clamp. The posterior distal cortex was soft. There was a nondisplaced fracture of the distal anterior portion of the proximal fracture fragment. A 3.5 mm bicortical lag screw was inserted but due to the posterior comminution the plate was marginal. The fracture was held reduced and 2 K wires were inserted crisscross across the fracture site for stability. A 5 hole Synthes distal fibular locking plate was selected. It fit best into position and then allowed only 3 distal screws. A regular bicortical screw was placed in the shaft to hold it in position. 3 unicortical locking screws were applied distally and 2 additional bicortical locking screws proximally. The pins were removed.The syndesmosis was stressed and found to be stable. AP lateral and oblique radiographs showed good positioning of the hardware and reduction of the fracture. There was no posterior or medial fracture. Tourniquet let down. Meticulous hemostasis. Copious irrigation. Superficial peroneal nerve was protected. Dissected out as necessary for mobilization. It laid across the cortical shaft screw. The soft tissues were closed over the plate except for approximately using 2-0 Vicryl. Approximately the muscle layer fell over the plate. Stitches cannot be applied here due to the positioning of the nerve. Skin was closed with 4-0 Vicryl. [place]. Half percent Marcaine 1% lidocaine were injected into the skin. The leg was cleaned with wet and dry sponges and the dressing was applied. Xeroform 4 x 4's ABD including the heel soft wrap posterior splint with ankle neutral and [place] wrap. Patient awakened from anesthesia without difficulty and taken to the recovery room in stable condition. There were no specimens or complications. Counts were correct and blood loss is estimated to be 5 cc. At the conclusion of the operation spoke the patient's informed him of my findings. Postop instructions were given. She can restart her Eliquis tomorrow morning. She will be nonweightbearing for at least 4 to 6 weeks on the right ankle. She may need placement.Her bone was in general soft and of poor quality. Synthes distal fibular locking plate 5 hole shaft length was applied. I attest to the content of the Intraoperative Record and any orders documented therein. Any exceptions are noted below.
[2024-08-11] MEDS ORDERED: LABETALOL HCL IV 5 MG/ML 20ML IV ONE (17:44)
[2024-08-11] MEDS ORDERED: hydrALAZINE HCL 20 MG/ML VIAL ONE (17:44)
[2024-08-11] MEDS: VANCOMYCIN HCL 1000MG/20ML VIAL ONE (17:52)
[2024-08-11] MEDS: LR 15ML/HR IV SCH (17:52)
[2024-08-11] MEDS ORDERED: LABETALOL HCL IV 5 MG/ML 20ML IV PRN (18:35)
[2024-08-11] MEDS: hydrALAZINE HCL 20 MG/ML VIAL IV ONE ×2 (18:43→19:12)
[2024-08-11] MEDS: hydrALAZINE HCL 20 MG/ML VIAL ONE (18:51)
--- NOTE | 2024-08-11 19:46 | Critical Care Consultation ---
Date of Consultation August 11, 2024 Assessment & Plan (1) Asymptomatic hypertensive urgency: See plan (2) Paroxysmal A-fib: See plan (3) Ischemic stroke: See plan Plan Neurologic: Continue close neurologic checks. Repeat imaging for any acute changes. Her deficits appear stable at this time. Responded well to 5mg IV Hydralazine. Will ensure patient receives her evening Carvedilol. Can start second agent if indicated. SBP goal < 175mmHg overnight. Re-evaluate in AM. Avoid hypotension. Home gabapentin. Multimodal pain management. APAP PRN, can tailor regimen as needed. Cardiovascular: BP control as above. Restart Eliquis in AM per Orthopedics. DVT mechanical PPX to L leg for now. Statin as ordered. Likely remove arterial line in AM. Respiratory: SpO2 goal > 92%. Wean to room air as able. IS/Flutter. Encourage deep breathing. HOB 30. Gastrointestinal: Advance ARMAND. Passed dysphagia screen a few days prior. SUP: Home H2B. Bowel regimen: Colace. Endocrine: BG 140-180 per [facility] guidelines. TSH normal on admission. Continue levothyroxine as ordered. Infectious disease: UA clean. Received empiric Rocephin x1 dose. WBC is downtrending. Vicki-operative antibiotics per Orthopedics. MSK/Skin/Other: S/P ORIF R ankle. NWB x 4-6weeks per Orthopedics. Skin care. Nephrology: Kidney function is intact. Gentle hydration if patient unable to tolerate PO. Repeat electrolytes as indicated for K > 4 and Mg > 2. DVT PPX: Mechanical Supervising Physician Co-Signing Physician Notes Patient seen and examined. EMR reviewed. Discussed with critical care SAMANTHA. Agree with assessment plan as noted. Please for my progress note from 08/12/2024 for additional details. History of Present Illness Reason for Consultation: Hypertension Requesting Physician: Garry Leija Attending Physician: Garry Leija History of Present Illness Ms. Benítez is a pleasant 78YOF with a documented history of paroxysmal atrial fibrillation, hypertension, hyperlipidemia, hypothyroidism, pre-DM (A1c 6.3), OA s/p B/L TKR who was admitted to [facility] on 08/06/2024 afternoon after her found her on the floor with a LKW that night before. Her imaging was negative for LVO. She was also found to have R distal fibula fracture. Received prophylactic Rocephin due to concern for UTI. She was admitted to Medicine service for further evaluation. She received initial Plavix load and was initiated on DAPT per Neurology. Her MRI revealed embolic pattern L frontal/partietal ischemic infarcts. She was initiated on Eliquis 5mg BID and DAPT was stopped. TTE with bubble study was concerning for possible PFO. Cardiology was consulted for preoperative clearance, and Eliquis was held at least 24 hours prior. Gely underwent ORIF R ankle the afternoon of 08/11/2024 under general anesthesia. Her course was complicated by intraoperative hypertension requiring IV Labetalol and Hydralazine. EBL 5cc. Due to refractory hypertension, ICU was consulted for possible transfer. Patient was seen in PACU. Arterial line is functioning appropriately. Saturating > 95% on 2L NC. SBP 180-195mmHg. Given her lack of persistent hypertension in the past as well as lack of anticoagulation with PFO I was concerned for additional embolic phenomena vs. uncontrolled pain. On my evaluation, patient is awake and alert. Pleasant and conversant. She does have mild to moderate expressive aphasia. She is oriented to person and year, not place. She denies current complaints. She is moving all extremities spontaneously, and strength is grossly intact. Wiggles R toes, did not assess sensory and strength of this foot. These deficits are not worsened from prior examinations as documented. I did give 5mg IV Hydralazine with improvement to 160mmHg. She is admitted to ICU for close monitoring overnight. Allergies Allergy/AdvReac Type Severity Reaction Status Date / Time No Known Allergies Allergy Verified 06/30/23 07:32 Home Medications Medication Instructions Recorded Confirmed Type atorvastatin 20 mg tablet 20 mg PO QPM 02/18/21 08/06/24 History carvedilol 12.5 mg tablet 12.5 mg PO BID 02/18/21 08/06/24 History famotidine 10 mg tablet 10 mg PO BID 02/18/21 08/06/24 History levothyroxine 100 mcg capsule 100 mcg PO QAM 02/18/21 08/06/24 History cholecalciferol (vitamin D3) 125 50,000 unit PO Q30D 02/18/22 08/06/24 History mcg (5,000 unit) tablet (Vitamin D3) propylene glycol 0.6 % eye drops 1 drp ophthalmic (eye) QAM PRN Dry 02/18/22 08/06/24 History (Systane Complete) Eyes simethicone 125 mg capsule (Gas 125 mg PO BID 02/18/22 08/06/24 History Relief (simethicone)) sennosides 8.6 mg-docusate sodium 1 tab-cap PO DAILY #14 tabs 09/07/22 08/06/24 Rx 50 mg tablet (Senokot-S) sennosides 8.6 mg tablet (Senokot) 8.6 mg PO BID prevent constipation 06/26/23 08/06/24 Rx 14 days #28 tabs allopurinol 100 mg tablet 100 mg PO DAILY 06/23/24 08/06/24 History gabapentin 100 mg capsule 100 mg PO HS 06/23/24 08/06/24 History Patient History Medical History Right knee DJD Encounter for pre-operative examination Elevated hemoglobin A1c A1C 6.3% 09/2022, glucose 169 on 06/03/2023 Neuropathy B/L toes Obesity History of atrial fibrillation No issues x years [place] to be thyroid dysfunction at that time (which was corrected) and she was d/c'd from cardiology. No issues since. Patient taking ASA/beta lukas + managed by PCP. History of COVID-19 03/2022 > resolved GERD (gastroesophageal reflux disease) Surgical History History of total left knee replacement Left TKA (09/09/22): SAB at L3/4 + PNB at [facility] History of tooth extraction History of thyroid irradiation History of bilateral tubal ligation History of appendectomy History of colonoscopy Hx of wisdom tooth extraction Hx of tonsillectomy Hx of bilateral cataract extraction Family History Mother Liver cancer Colon cancer Diabetes Father Colon cancer Lung cancer Other No family history of adverse response to anesthesia Social History Smoking Status: Never smoker Tobacco Type: Cigarettes Second Hand Exposure: No; Do You Dip or Chew Tobacco: No; Hx Alcohol Use: No Hx Substance Use: No Preferred Language: Uzbek Communication Ability: Effective Business Enterprise Officer Required: No Beliefs That Will Affect Care: None Current Living Situation: Spouse Feels Safe at Home: Yes Assistive Devices: None Review of Systems Constitutional: no fever and no chills Eyes: no problem reported Ear, Nose, Mouth, Throat: no problem reported Respiratory: no problem reported Cardiovascular: no chest pain, no dyspnea, no palpitations and no edema Gastrointestinal: no abdominal pain, no nausea, no vomiting and no change in stools Genitourinary: no dysuria, no urinary frequency and no urinary incontinence Musculoskeletal: + limited range of motion R ankle Integumentary: no rash and no lesions Neurologic: + falls; no localized weakness, no loss of sensation, no numbness, no paresthesia, no seizure-like activity and no headache(s) Physical Exam Constitutional: well developed, healthy appearing, cooperative and + overweight; no acute distress Eyes: PERRL, conjunctivae normal, anicteric sclerae ENMT: external ear and nose normal, oropharynx normal Neck: trachea midline, no thyromegaly Cardiovascular: RRR, no murmur, no edema Gastrointestinal (Abdomen): normal bowel sounds, soft, nontender, no hepatosplenomegaly Musculoskeletal: RLE cast in place. Capillary refill < 2 seconds. Skin: no rashes, warm and dry Neurologic: moves all extremities, awake and + confused; no focal motor deficits Speech / Cognition: normal speech Motor/Sensory: no tremor, no pronator drift and no asterixis Cranial Nerves: PERRL, tongue midline, normal hearing and able to elevate shoulders bilaterally Coordination: normal [id number] test Psychiatric: Orientation: alert, oriented to person and cooperative; + not oriented to place and + not oriented to time Apperance: appropriately groomed and appeared stated age Eye Contact: good eye contact Motor Behavior: n tremor Affect: euthymic affect Cognition: remote memory grossly intact, attention grossly intact and language grossly intact Genitourinary: Deferred Results & Data Results & Data Vital Signs (Past 12 Hours) Vital Signs Temp Pulse Pulse Resp BP BP Pulse Ox 08/11/24 19:30 64 14 166/68 H 144/88 H 98 08/11/24 19:20 36.7 C 68 12 190/81 H 180/99 H 97 08/11/24 19:10 63 14 194/79 H 192/90 H 100 08/11/24 19:00 67 13 184/78 H 158/92 H 98 08/11/24 18:50 56 L 15 170/66 H 167/76 H 91 08/11/24 18:40 64 20 195/81 H 190/87 H 95 08/11/24 18:30 36.7 C 60 16 188/73 H 188/80 H 97 08/11/24 18:20 66 14 190/86 H 190/81 H 97 08/11/24 18:10 68 13 198/85 H 156/75 H 98 08/11/24 18:00 59 L 12 200/85 H 199/90 H 98 08/11/24 17:54 36.1 C L 63 12 166/91 H 98 08/11/24 13:06 36.9 C 63 18 176/93 H 97 08/11/24 11:50 36.5 C 62 18 158/93 H 96 08/11/24 07:50 36.6 C 67 16 124/74 95 O2 Del Method O2 Flow Rate 08/11/24 19:30 Nasal Cannula 2 08/11/24 19:20 Nasal Cannula 2 08/11/24 19:10 Nasal Cannula 2 08/11/24 19:00 Nasal Cannula 2 08/11/24 18:50 Room Air 08/11/24 18:40 Room Air 08/11/24 18:30 Room Air 08/11/24 18:20 Oxymask 2 08/11/24 18:10 Oxymask 5 08/11/24 18:00 Oxymask 5 08/11/24 17:54 Oxymask 5 08/11/24 13:06 Room Air 08/11/24 11:50 Room Air 08/11/24 07:50 Room Air Laboratory Results Reviewed Diagnostic Findings Reviewed Medications Administered Reviewed Coding Level of Care Code 29784 IN/OBS CONSULT LVL 4,60M Diagnoses Asymptomatic hypertensive urgency I16.0 Paroxysmal A-fib I48.0 Ischemic stroke I63.9 Time Spent (min) 42
--- NOTE | 2024-08-11 20:06 | Anesthesiology Progress Note ---
Date of Service August 11, 2024 Anesthesia Post Procedure Vital Signs Vital Signs: Temp Pulse Pulse Pulse Resp BP BP 08/11/24 19:30 64 14 166/68 H 08/11/24 19:20 36.7 C 68 12 190/81 H 08/11/24 19:10 63 14 194/79 H 08/11/24 19:00 67 13 184/78 H 08/11/24 18:50 56 L 15 170/66 H 08/11/24 18:40 64 20 195/81 H 08/11/24 18:30 36.7 C 60 16 188/73 H 08/11/24 18:20 66 14 190/86 H 08/11/24 18:10 68 13 198/85 H 08/11/24 18:00 59 L 12 200/85 H 08/11/24 17:54 36.1 C L 63 12 08/11/24 13:06 36.9 C 63 18 08/11/24 11:50 36.5 C 62 18 08/11/24 07:50 36.6 C 67 16 08/11/24 03:59 36.7 C 66 16 08/10/24 23:30 36.9 C 74 18 128/61 08/10/24 23:17 63 BP Pulse Ox O2 Del Method O2 Flow Rate 08/11/24 19:30 144/88 H 98 Nasal Cannula 2 08/11/24 19:20 180/99 H 97 Nasal Cannula 2 08/11/24 19:10 192/90 H 100 Nasal Cannula 2 08/11/24 19:00 158/92 H 98 Nasal Cannula 2 08/11/24 18:50 167/76 H 91 Room Air 08/11/24 18:40 190/87 H 95 Room Air 08/11/24 18:30 188/80 H 97 Room Air 08/11/24 18:20 190/81 H 97 Oxymask 2 08/11/24 18:10 156/75 H 98 Oxymask 5 08/11/24 18:00 199/90 H 98 Oxymask 5 08/11/24 17:54 166/91 H 98 Oxymask 5 08/11/24 13:06 176/93 H 97 Room Air 08/11/24 11:50 158/93 H 96 Room Air 08/11/24 07:50 124/74 95 Room Air 08/11/24 03:59 160/83 H 93 Room Air 08/10/24 23:30 92 Room Air 08/10/24 23:17 Pain Intensity Right Hip: Pain Intensity: 1 Right Ankle: Pain Intensity: 5 Transfer of Care Handoff Completed per policy Notes Mental Status: alert / awake / arousable and participated in evaluation Patient Amnestic to Procedure: Yes Nausea / Vomiting: adequately controlled Pain: adequately controlled Airway Patency, RR, SpO2: stable & adequate BP & HR: see Notes below Hydration State: stable & adequate Anesthetic Complications: no major complications apparent Notes: Pt with recent cva and labile bp. ga and arterial line in or. was hypertensive and needed iv antihypertensive meds intra and postop. involved hospitalist postop and icu team involved. plan to admit to icu for bp monitoring and treatment. pt conversant and moving extremities.
[2024-08-11] MEDS: ICU Protocol for HYPERglycemia SCH (20:10)
[2024-08-11] MEDS: hydrALAZINE HCL 20 MG/ML VIAL IV PRN (21:06)
[2024-08-11] MEDS: lisinopril 2.5 MG TAB PO SCH (21:50)
[2024-08-11] MEDS: hydrALAZINE HCL 20 MG/ML VIAL IV STA (22:00)
--- NOTE | 2024-08-11 22:28 | Hospitalist Progress Note ---
Date of Service August 11, 2024 Assessment & Plan (1) Stroke-like symptoms: (2) Right fibular fracture: (3) Hypertension: (4) Hypothyroidism: (5) Hyperlipidemia: Plan Patient is a 78-year-old female with a past medical history of Graves' disease, hypertension, hyperlipidemia, A-fib, neuropathy. She presents today as a stroke alert after her found her on the floor at 3 PM in her bedroom, last known well 08/05. The patient is confused and has expressive aphasia. she is here for stroke workup, CT head, head and neck CTAs negative for acute processes. She was also found to have a right distal fibular fracture. The patient does not remember falling. 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 likely embolic source not with afib as of yet to consider event monitor CXR negative - Biofire negative - telestroke recommends dual antiplatelet therapy, plavix load on admission, permissive hypertension - on Atorvastatin 40 mg daily now - adjust prn with lipid panel ordered since history of afib may need to discuss with neurology timing of starting AC -will proceed with surgery, holding eliquis. Surgery scheduled for 08/11 reviewed labs on 08/11 AFter surgery, discussed with anesthesia, patient was found to be hypertensive despite hydralazine 10mg and labetalol. SBP was above 188. 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 will transfer to ICU #right fibular fracture, found on ground, immobilize and ortho consult: surgery repair on . #hypothyroidism History of Graves' disease s/p irradiation history of A-fib thought to be related to thyroid dysfunction, corrected TSH normal continue levothyroxine Chronic stable diagnoses: hx of a fib- NSR on monitor, continue carvedilol, not on chronic AC GERDcontinue famotidine Neuropathycontinue gabapentin Goutcontinue allopurinol VTE ppx: SCDs; deferred chemical PPx given stroke workup above Diet: repeat dysphagia screen ordered, if passes can advance to heart healthy diet - consult speech 08/07/24 passed dysphagia screen will need post discharge speech PT/OT eval Admission and Anticipated Discharge Date Admission Date: August 06, 2024 Subjective Patient resting comfortably. Physical Exam Physical Exam: no focal neurologic loss or facial asymetry cardiac is regular lungs are clear abd is soft and non tender Results & Data Results & Data Vital Signs (Past 12 Hours) Vital Signs Temp Pulse Pulse Pulse Resp BP BP 08/11/24 21:03 69 15 08/11/24 21:00 159/89 H 08/11/24 20:54 75 14 08/11/24 20:48 68 11 L 08/11/24 20:34 182/111 H 08/11/24 20:34 182/111 H 08/11/24 20:30 67 11 L 08/11/24 20:15 70 12 08/11/24 20:10 36.7 C 08/11/24 19:30 64 14 166/68 H 08/11/24 19:20 36.7 C 68 12 190/81 H 08/11/24 19:10 63 14 194/79 H 08/11/24 19:00 67 13 184/78 H 08/11/24 18:50 56 L 15 170/66 H 08/11/24 18:40 64 20 195/81 H 08/11/24 18:30 36.7 C 60 16 188/73 H 08/11/24 18:20 66 14 190/86 H 08/11/24 18:10 68 13 198/85 H 08/11/24 18:00 59 L 12 200/85 H 08/11/24 17:54 36.1 C L 63 12 08/11/24 13:06 36.9 C 63 18 08/11/24 11:50 36.5 C 62 18 BP Pulse Ox O2 Del Method O2 Flow Rate 08/11/24 21:03 94 08/11/24 21:00 08/11/24 20:54 93 08/11/24 20:48 94 08/11/24 20:34 08/11/24 20:34 08/11/24 20:30 97 08/11/24 20:15 96 08/11/24 20:10 08/11/24 19:30 144/88 H 98 Nasal Cannula 2 08/11/24 19:20 180/99 H 97 Nasal Cannula 2 08/11/24 19:10 192/90 H 100 Nasal Cannula 2 08/11/24 19:00 158/92 H 98 Nasal Cannula 2 08/11/24 18:50 167/76 H 91 Room Air 08/11/24 18:40 190/87 H 95 Room Air 08/11/24 18:30 188/80 H 97 Room Air 08/11/24 18:20 190/81 H 97 Oxymask 2 08/11/24 18:10 156/75 H 98 Oxymask 5 08/11/24 18:00 199/90 H 98 Oxymask 5 08/11/24 17:54 166/91 H 98 Oxymask 5 08/11/24 13:06 176/93 H 97 Room Air 08/11/24 11:50 158/93 H 96 Room Air PG Care Time/CCT Total # of Minutes Spent Total Time Spent with Patient: Total time spent is greater than 50% in coordination of care (as documented) at patient's floor/unit and/or counseling patient: Coding Level of Care Code 46617 SUB INP/OBS CARE 3/50MIN Diagnoses Stroke-like symptoms R29.90 Right fibular fracture S82.401A Hypertension I10 Hypothyroidism E03.9 Hyperlipidemia E78.5
[2024-08-12 05:55] LABS: Basophils # (auto) 0.02 K/uL (0.00-0.20); Basophils % (auto) 0.2 %; Hematocrit (blood only) 34.8 % (37.0-47.0); Hemoglobin 11.9 g/dl (12.0-16.0); Immature Granulocytes # (auto) 0.04 K/uL (0.01-0.20); Immature Granulocytes % (auto) 0.4 %; Lymphocytes # (auto) 1.33 K/uL (1.20-3.40); Lymphocytes % (auto) 13.9 %; Mean Corpuscular Hemoglobin 31.3 pg (25.0-34.0); Mean Corpuscular Hgb Conc 34.2 g/dL (32.0-36.0); Mean Corpuscular Volume 91.6 fL (80.0-100.0); Mean Platelet Volume 9.4 fL (9.4-12.4); Monocytes # (auto) 0.73 K/uL (0.11-0.59); Monocytes % (auto) 7.6 %; Neutrophils # (auto) 7.45 K/uL (1.40-6.50); Neutrophils % (auto) 77.9 %; Platelet Count 285 K/uL (130-400); RDW Coefficient of Variation 13.1 % (11.5-14.5); RDW Standard Deviation 43.1 fL (36.4-46.3); White Blood Count 9.57 K/ul (4.8-10.8)
[2024-08-12 06:11] LABS: BUN Creatinine Ratio 27.3 (10-20); Calcium 9.1 mg/dl (8.6-10.3); Creatinine Clr Calc Pharmacy 68.3 ml/min; Phosphorus 4.1 mg/dl (2.5-4.9); Potassium 3.9 mmol/L (3.5-5.1)
--- NOTE | 2024-08-12 07:36 | Fluoroscopy Report ---
FL ankle RT min 3V RTN CLINICAL HISTORY: RIGHT ANKLE ORIF COMPARISON STUDY: Right ankle radiographs August 08, 2024. FLUOROSCOPY TIME: 28 seconds. Ka,r: 1.01 mGy FLUOROSCOPIC IMAGES: 6 FINDINGS: Fluoroscopy was provided during open reduction and internal fixation of the distal right fi bular fracture with plate and screws. Alignment appears anatomic. Hardware is intact. There are no un expected radiopaque foreign bodies. IMPRESSION: Fluoroscopy provided during right ankle open reduction and internal fixation. ACT 112: Negative or not required by law. Electronically signed by: Emilio Juarez M.D. 08/12/2024 7:34 AM
--- NOTE | 2024-08-12 07:44 | Critical Care Progress Note ---
Date of Service August 12, 2024 Assessment & Plan (1) Asymptomatic hypertensive urgency: (2) Paroxysmal A-fib: (3) Closed fracture of distal end of right fibula: (4) Hypertension: Plan Impression: 78-year-old female admitted 6 days ago with stroke and positive PFO. She had a right ankle fracture and was taken to the OR yesterday. She was hypertensive post procedurally and was brought to the ICU for closer monitoring. She never required parenteral agents and is hemodynamically stable this morning. Recommendations: 1. Hypertension: Continue current medications. Currently on metoprolol 12.5 mg twice a day. Increase to every 8 hours 2. Embolic stroke with PFO. Restart Eliquis today. Continue lipid-lowering therapy. 3. Out of bed to chair as tolerated. Will need physical therapy and Occupational Therapy once weightbearing per orthopedics Patient's critical care issues are resolved. She can transfer out of the ICU back to the floor under the care of the hospitalist. Critical care will sign off. Feel free to contact us with questions or concerns Admission and Anticipated Discharge Date Admission Date: August 06, 2024 Subjective Patient seen and examined. EMR reviewed. Discussed with overnight critical care SAMANTHA as well as with bedside critical care nurse and on multidisciplinary rounds. The patient is awake alert and conversant. Her pain is well-controlled. Her blood pressure is well-controlled. She denies chest pain or palpitations. No shortness of breath. No neurological symptoms. She overall feels like she is doing well postoperatively. Review of Systems Review of Systems: All systems reviewed & are unremarkable except as noted in Subjective Physical Exam Constitutional: WD/WN, vitals as above + obese; no acute distress Neck: trachea midline, no thyromegaly Respiratory: normal respiratory effort, lungs clear to auscultation Cardiovascular: RRR, no murmur, no edema Gastrointestinal (Abdomen): normal bowel sounds, soft, nontender, no hepatosplenomegaly Musculoskeletal: Neurovascularly intact. Splint on right ankle. Skin: no rashes, warm and dry Neurologic: Nonfocal exam Lymphatic: no cervical lymphadenopathy Results & Data Results & Data Vital Signs (Past 12 Hours) Vital Signs Temp Pulse Pulse Pulse Resp BP BP 08/12/24 06:00 36.4 C L 15 140/83 08/12/24 05:00 72 17 117/68 08/12/24 04:04 75 76 18 121/54 L 08/12/24 04:00 76 119/53 L 08/12/24 02:27 90 15 152/92 H 08/12/24 02:15 87 17 08/12/24 01:30 91 H 14 147/75 H 08/12/24 01:12 93 H 17 08/12/24 01:06 94 H 12 08/12/24 00:33 86 19 141/80 H 08/12/24 00:30 141/80 H 08/12/24 00:24 87 17 08/12/24 00:18 92 H 25 H 08/12/24 00:00 94 H 08/12/24 00:00 148/82 H 08/11/24 23:57 90 14 08/11/24 23:30 36.4 C L 164/86 H 08/11/24 23:30 164/86 H 08/11/24 23:30 164/86 H 08/11/24 23:30 164/86 H 08/11/24 23:30 91 H 15 08/11/24 23:03 97 H 21 08/11/24 23:00 178/89 H 08/11/24 23:00 178/89 H 08/11/24 23:00 36.4 C L 92 H 14 145/56 H 08/11/24 22:57 93 H 17 08/11/24 22:09 81 13 08/11/24 22:00 177/85 H 08/11/24 21:48 81 20 08/11/24 21:30 79 20 08/11/24 21:30 158/84 H 08/11/24 21:30 158/84 H 08/11/24 21:03 69 15 08/11/24 21:00 159/89 H 08/11/24 20:54 75 14 08/11/24 20:48 68 11 L 08/11/24 20:34 182/111 H 08/11/24 20:34 182/111 H 08/11/24 20:30 67 11 L 08/11/24 20:15 70 12 08/11/24 20:10 36.7 C BP Pulse Ox O2 Del Method O2 Flow Rate 08/12/24 06:00 08/12/24 05:00 94 Nasal Cannula 3 08/12/24 04:04 107/63 90 Nasal Cannula 3 08/12/24 04:00 08/12/24 02:27 97 08/12/24 02:15 97 08/12/24 01:30 94 08/12/24 01:12 96 08/12/24 01:06 98 08/12/24 00:33 94 08/12/24 00:30 08/12/24 00:24 94 08/12/24 00:18 94 08/12/24 00:00 08/12/24 00:00 08/11/24 23:57 92 08/11/24 23:30 08/11/24 23:30 08/11/24 23:30 08/11/24 23:30 08/11/24 23:30 93 08/11/24 23:03 92 08/11/24 23:00 08/11/24 23:00 08/11/24 23:00 178/89 H 92 Room Air 08/11/24 22:57 94 08/11/24 22:09 96 08/11/24 22:00 08/11/24 21:48 93 08/11/24 21:30 93 08/11/24 21:30 08/11/24 21:30 08/11/24 21:03 94 08/11/24 21:00 08/11/24 20:54 93 08/11/24 20:48 94 08/11/24 20:34 08/11/24 20:34 08/11/24 20:30 97 08/11/24 20:15 96 08/11/24 20:10 Critical Care Results & Data Vital Signs (Past 12 Hours) Vital Signs Temp Pulse Pulse Pulse Resp BP BP 08/12/24 06:00 36.4 C L 15 140/83 08/12/24 05:00 72 17 117/68 08/12/24 04:04 75 76 18 121/54 L 08/12/24 04:00 76 119/53 L 08/12/24 02:27 90 15 152/92 H 08/12/24 02:15 87 17 08/12/24 01:30 91 H 14 147/75 H 08/12/24 01:12 93 H 17 08/12/24 01:06 94 H 12 08/12/24 00:33 86 19 141/80 H 08/12/24 00:30 141/80 H 08/12/24 00:24 87 17 08/12/24 00:18 92 H 25 H 08/12/24 00:00 94 H 08/12/24 00:00 148/82 H 08/11/24 23:57 90 14 08/11/24 23:30 36.4 C L 164/86 H 08/11/24 23:30 164/86 H 08/11/24 23:30 164/86 H 08/11/24 23:30 164/86 H 08/11/24 23:30 91 H 15 08/11/24 23:03 97 H 21 08/11/24 23:00 178/89 H 08/11/24 23:00 178/89 H 08/11/24 23:00 36.4 C L 92 H 14 145/56 H 08/11/24 22:57 93 H 17 08/11/24 22:09 81 13 08/11/24 22:00 177/85 H 08/11/24 21:48 81 20 08/11/24 21:30 79 20 08/11/24 21:30 158/84 H 08/11/24 21:30 158/84 H 08/11/24 21:03 69 15 08/11/24 21:00 159/89 H 08/11/24 20:54 75 14 08/11/24 20:48 68 11 L 08/11/24 20:34 182/111 H 08/11/24 20:34 182/111 H 08/11/24 20:30 67 11 L 08/11/24 20:15 70 12 08/11/24 20:10 36.7 C BP Pulse Ox O2 Del Method O2 Flow Rate 08/12/24 06:00 08/12/24 05:00 94 Nasal Cannula 3 08/12/24 04:04 107/63 90 Nasal Cannula 3 08/12/24 04:00 08/12/24 02:27 97 08/12/24 02:15 97 08/12/24 01:30 94 08/12/24 01:12 96 08/12/24 01:06 98 08/12/24 00:33 94 08/12/24 00:30 08/12/24 00:24 94 08/12/24 00:18 94 08/12/24 00:00 08/12/24 00:00 08/11/24 23:57 92 01/09/25 23:30 08/11/24 23:30 08/11/24 23:30 08/11/24 23:30 08/11/24 23:30 93 08/11/24 23:03 92 08/11/24 23:00 08/11/24 23:00 08/11/24 23:00 178/89 H 92 Room Air 08/11/24 22:57 94 08/11/24 22:09 96 08/11/24 22:00 08/11/24 21:48 93 08/11/24 21:30 93 08/11/24 21:30 08/11/24 21:30 08/11/24 21:03 94 08/11/24 21:00 08/11/24 20:54 93 08/11/24 20:48 94 08/11/24 20:34 08/11/24 20:34 08/11/24 20:30 97 08/11/24 20:15 96 08/11/24 20:10 Lab & Micro Results (Past 24 Hours) 2 RBC 3.80 M/uL (4.20-5.40) L 08/12/24 WBC 9.57 K/ul (4.8-10.8) 08/12/24 Hgb 11.9 g/dl (12.0-16.0) L 08/12/24 Hct 34.8 % (37.0-47.0) L 08/12/24 MCV 91.6 fL (80.0-100.0) 08/12/24 MCH 31.3 pg (25.0-34.0) 08/12/24 MCHC 34.2 g/dL (32.0-36.0) 08/12/24 RDW Standard Deviation 43.1 fL (36.4-46.3) 08/12/24 RDW Coefficient of Variation 13.1 % (11.5-14.5) 08/12/24 Plt Count 285 K/uL (130-400) 08/12/24 MPV 9.4 fL (9.4-12.4) 08/12/24 Neutrophils (%) (Auto) 77.9 % 08/12/24 Lymphocytes (%) (Auto) 13.9 % 08/12/24 Monocytes # (Auto) 0.73 K/uL (0.11-0.59) H 08/12/24 Eosinophils # (Auto) 0.00 K/uL (0.00-0.50) 08/12/24 Immature Granulocyte % (Auto) 0.4 % 08/12/24 Neutrophils # (Auto) 7.45 K/uL (1.40-6.50) H 08/12/24 Lymphocytes # (Auto) 1.33 K/uL (1.20-3.40) 08/12/24 Monocytes # (Auto) 0.73 K/uL (0.11-0.59) H 08/12/24 Eosinophils # (Auto) 0.00 K/uL (0.00-0.50) 08/12/24 Basophils # (Auto) 0.02 K/uL (0.00-0.20) 08/12/24 Immature Granulocyte # (Auto) 0.04 K/uL (0.01-0.20) 5 Na 139 mmol/L (136-145) 08/12/24 K 3.9 mmol/L (3.5-5.1) 08/12/24 Cl 109 mmol/L (98-107) H 08/12/24 CO2 22 mmol/L (21-32) 08/12/24 Anion Gap 8 (3-11) 08/12/24 BUN 21 mg/dl (6-23) 08/12/24 Creatinine 0.77 mg/dl (0.6-1.2) 08/12/24 BUN/Creatinine Ratio 27.3 (10-20) H 08/12/24 Glu 164 mg/dl (70-99(Fasting)) H 08/12/24 Ca 9.1 mg/dl (8.6-10.3) 08/12/24 Phosphorus Level 4.1 mg/dl (2.5-4.9) 08/12/24 Mg 2.0 mg/dl (1.7-2.4) 08/12/24 05:28 Calcium Level 9.1 mg/dl (8.6-10.3) 08/12/24 05:28 Diagnostic Findings (Past 24 Hours) Ankle X-Ray 08/11/24 07:00 FL ankle RT min 3V RTN CLINICAL HISTORY: RIGHT ANKLE ORIF COMPARISON STUDY: Right ankle radiographs August 08, 2024. FLUOROSCOPY TIME: 28 seconds. Ka,r: 1.01 mGy FLUOROSCOPIC IMAGES: 6 FINDINGS: Fluoroscopy was provided during open reduction and internal fixation of the distal right fibular fracture with plate and screws. Alignment appears anatomic. Hardware is intact. There are no unexpected radiopaque foreign bodies. IMPRESSION: Fluoroscopy provided during right ankle open reduction and internal fixation. ACT 112: Negative or not required by law. Electronically signed by: Emilio Juarez M.D. 08/12/2024 7:34 AM I & O Totals 24 Hours 08/11/24 08/12/24 08/13/24 06:59 06:59 06:59 Intake Total 360 / 360 1200 / 1200 Output Total 452 / 452 880 / 880 Balance -92 / -92 320 / 320 Cumulative 08/06/24 15:35 thru 08/12/24 06:00 Intake Total 3050 Output Total 4257 Balance -1207 RT Ventilator Mngmt (Last Documented) Ventilator Ordered Settings Respiratory Rate 15 08/12/24 06:00 Ventilator - PT Measurements Respiratory Rate 15 Coding Level of Care Code 96245 SUB INP/OBS CARE 2/35MIN Diagnoses Asymptomatic hypertensive urgency I16.0 Paroxysmal A-fib I48.0 Closed fracture of distal end of right fibula S82.831A Hypertension I10
[2024-08-12] MEDS: METOPROLOL TARTRATE 25 MG TAB PO SCH (08:28)
[2024-08-12] MEDS ORDERED: METOPROLOL TARTRATE 25 MG TAB PO SCH (09:00)
[2024-08-12] MEDS ORDERED: lisinopril 2.5 MG TAB PO SCH (09:00)
[2024-08-12] MEDS ORDERED: lisinopril 5 MG TAB PO SCH (09:00)
--- NOTE | 2024-08-12 11:38 | Orthopedic Progress Note ---
Date of Service August 12, 2024 Assessment & Plan (1) Status post ORIF of fracture of ankle: Plan: PT/OT Nonweightbearing on right lower extremity with walker assistance Pain controlled p.o. medication DVT prophylaxis per medicine service discretion Follow-up at [facility] orth[facility] with Dr. De Paz as previously scheduled. Admission and Anticipated Discharge Date Admission Date: August 06, 2024 Subjective This 78-year-old female seen today for day 1 follow-up after undergoing a right ankle examination under anesthesia and open reduction internal fixation. Patient states she is doing very well. She is currently in the ICU because well in the recovery room her blood pressure and heart rate were both elevated. Currently she is stable. She is doing very well. She is very pleased with the results of surgery. She states that her splint is fairly comfortable and she is now able to lift her leg without difficulty. Currently she denies chest pain, shortness of breath, fever, chills, sweats, nausea, vomiting, diarrhea or numbness or tingling in her right lower extremity. Review of Systems Review of Systems: All systems reviewed & are unremarkable except as noted in Subjective Physical Exam Physical Exam: Right lower extremity: Splint is clean dry and intact left in place. Patient is able to easily perform a straight leg raise test. She is able to flex her knee beyond 90 degrees. She is able to detect light sensation intact over the pads of all digits. She is neurovascularly intact. Quad strength is 4 out of 5. Results & Data Vital Signs (Past 12 Hours) Vital Signs Temp Pulse Pulse Pulse Resp BP BP 08/12/24 09:33 69 17 08/12/24 09:30 129/69 08/12/24 09:00 144/74 H 08/12/24 08:45 77 24 08/12/24 08:30 147/83 H 08/12/24 08:21 78 13 08/12/24 08:00 140/86 08/12/24 08:00 77 13 08/12/24 07:06 61 18 08/12/24 07:00 71 08/12/24 07:00 141/76 H 08/12/24 06:00 36.4 C L 15 140/83 08/12/24 05:00 72 17 117/68 08/12/24 04:04 75 76 18 121/54 L 08/12/24 04:00 76 119/53 L 08/12/24 02:27 90 15 152/92 H 08/12/24 02:15 87 17 08/12/24 01:30 91 H 14 147/75 H 08/12/24 01:12 93 H 17 08/12/24 01:06 94 H 12 08/12/24 00:33 86 19 141/80 H 08/12/24 00:30 141/80 H 08/12/24 00:24 87 17 08/12/24 00:18 92 H 25 H 08/12/24 00:00 94 H 08/12/24 00:00 148/82 H 08/11/24 23:57 90 14 BP Pulse Ox O2 Del Method O2 Flow Rate 08/12/24 09:33 94 Room Air 08/12/24 09:30 08/12/24 09:00 08/12/24 08:45 97 08/12/24 08:30 08/12/24 08:21 96 08/12/24 08:00 08/12/24 08:00 89 L 08/12/24 07:06 97 08/12/24 07:00 08/12/24 07:00 08/12/24 06:00 08/12/24 05:00 94 Nasal Cannula 3 08/12/24 04:04 107/63 90 Nasal Cannula 3 08/12/24 04:00 08/12/24 02:27 97 08/12/24 02:15 97 08/12/24 01:30 94 08/12/24 01:12 96 08/12/24 01:06 98 08/12/24 00:33 94 08/12/24 00:30 08/12/24 00:24 94 08/12/24 00:18 94 08/12/24 00:00 08/12/24 00:00 08/11/24 23:57 92 Diagnostic Findings Laboratory Results WBC 9.57 K/ul (4.8-10.8) 08/12/24 05:33 RBC 3.80 M/uL (4.20-5.40) L 08/12/24 05:33 Hgb 11.9 g/dl (12.0-16.0) L 08/12/24 05:33 Hct 34.8 % (37.0-47.0) L 08/12/24 05:33 MCV 91.6 fL (80.0-100.0) 08/12/24 05:33 MCH 31.3 pg (25.0-34.0) 08/12/24 05:33 MCHC 34.2 g/dL (32.0-36.0) 08/12/24 05:33 RDW Std Deviation 43.1 fL (36.4-46.3) 08/12/24 05:33 RDW Coeff of [place] 13.1 % (11.5-14.5) 08/12/24 05:33 Plt Count 285 K/uL (130-400) 08/12/24 05:33 MPV 9.4 fL (9.4-12.4) 08/12/24 05:33 Immature Gran % (Auto) 0.4 % 08/12/24 05:33 Neut % (Auto) 77.9 % 08/12/24 05:33 Lymph % (Auto) 13.9 % 08/12/24 05:33 [place] % (Auto) 7.6 % 08/12/24 05:33 Eos % (Auto) 0.0 % 08/12/24 05:33 Baso % (Auto) 0.2 % 08/12/24 05:33 Neut # (Auto) 7.45 K/uL (1.40-6.50) H 08/12/24 05:33 Lymph # (Auto) 1.33 K/uL (1.20-3.40) 08/12/24 05:33 [place] # (Auto) 0.73 K/uL (0.11-0.59) H 08/12/24 05:33 Eos # (Auto) 0.00 K/uL (0.00-0.50) 08/12/24 05:33 Baso # (Auto) 0.02 K/uL (0.00-0.20) 08/12/24 05:33 Immature Gran # (Auto) 0.04 K/uL (0.01-0.20) 08/12/24 05:33 PT 11.2 Seconds (9.0-12.0) 08/06/24 15:59 INR 1.0 (0.9-1.1) 08/06/24 15:59 APTT 24 Seconds (21-31) 08/06/24 15:59 PTT Ratio 0.9 08/06/24 15:59 Sodium 139 mmol/L (136-145) 08/12/24 05:28 Potassium 3.9 mmol/L (3.5-5.1) 08/12/24 05:28 Chloride 109 mmol/L (98-107) H 08/12/24 05:28 Carbon Dioxide 22 mmol/L (21-32) 08/12/24 05:28 Anion Gap 8 (3-11) 08/12/24 05:28 BUN 21 mg/dl (6-23) 08/12/24 05:28 Creatinine 0.77 mg/dl (0.6-1.2) 08/12/24 05:28 Est Cr Clr Drug Dosing 68.3 ml/min 08/12/24 05:28 eGFR 78.42 08/12/24 05:28 BUN/Creatinine Ratio 27.3 (10-20) H 08/12/24 05:28 Glucose 164 mg/dl (70-99(Fasting)) H 08/12/24 05:28 POC Glucose 133 mg/dl (70-99) H 08/12/24 07:30 Estimat Average Glucose 137 mg/dl 08/07/24 05:30 Hemoglobin A1c 6.4 % (4.5-5.6) H 08/07/24 05:30 Calcium 9.1 mg/dl (8.6-10.3) 08/12/24 05:28 Phosphorus 4.1 mg/dl (2.5-4.9) 08/12/24 05:28 Magnesium 2.0 mg/dl (1.7-2.4) 08/12/24 05:28 Total Bilirubin 1.4 mg/dl (0.2-1.0) H 08/06/24 15:59 AST 30 U/L (13-39) 08/06/24 15:59 ALT 21 U/L (7-52) 08/06/24 15:59 Alkaline Phosphatase 80 U/L (34-104) 08/06/24 15:59 Total Creatine Kinase 153 U/L (26-192) 08/06/24 15:59 Troponin I High Sens 11.7 pg/ml (0-14) 08/06/24 15:59 B-Natriuretic Peptide 259 pg/ml (0-100) H 08/06/24 16:00 Total Protein 6.9 gm/dl (6.0-8.3) 08/06/24 15:59 Albumin 4.2 gm/dl (3.4-5.0) 08/06/24 15:59 Globulin 2.7 gm/dl (2.5-4.0) 08/06/24 15:59 Albumin/Globulin Ratio 1.6 (0.9-2) 08/06/24 15:59 Triglycerides 200 mg/dl (0-150) H 08/07/24 05:30 Cholesterol 139 mg/dl (0-200) 08/07/24 05:30 LDL Cholesterol, Calc 49 mg/dl 08/07/24 05:30 VLDL Cholesterol, Calc 40 mg/dl (0-30) H 08/07/24 05:30 HDL Cholesterol 50 mg/dl 08/07/24 05:30 Cholesterol/HDL Ratio 2.8 (0-5) 08/07/24 05:30 Vitamin B12 1310 pg/ml (180-914) H 08/07/24 05:30 Folate > 22.30 ng/ml (>5.38) 08/07/24 05:30 TSH 3.011 uIu/ml (0.300-4.500) 08/07/24 05:30 Urine Color Yellow 08/06/24 17:27 Urine Appearance Clear (Clear) 08/06/24 17: Urine pH 6.5 (4.5-7.5) 08/06/24 17:27 Ur Specific [place] > 1.045 (1.000-1.030) H 08/06/24 17:27 Urine Protein Negative (Negative) 08/06/24 17: Urine Glucose (UA) Negative (Negative) 08/06/24 17:27 Urine Ketones Trace (Negative) H 08/06/24 17: Urine Blood Negative (Negative) 08/06/24 17: Urine Nitrite Negative (Negative) 08/06/24 17: Urine Bilirubin Negative (Negative) 08/06/24 17: Urine Urobilinogen Negative (Negative) 08/06/24 17:27 Ur Leukocyte Esterase 1+ (Negative) H 08/06/24 17:27 Urine WBC (Auto) 6-10 /hpf (0-5) H 08/06/24 17:27 Urine RBC (Auto) 0-2 /hpf (0-2) 08/06/24 17:27 U Hyaline Cast (Auto) 0-2 /lpf (0-2) 08/06/24 17:27 U Epithel Cells (Auto) 0-2 /hpf (0-2) 08/06/24 17:27 Urine Bacteria (Auto) None Seen (None Seen) 08/06/24 17:27 Nasal Screen MRSA (PCR) Negative (Negative) 08/11/24 Unknown Adenovirus (PCR) Not Detected (NotDetected) 08/06/24 17:27 B. pertussis DNA (PCR) Not Detected (NotDetected) 08/06/24 17:27 B.parapertussis DNA PCR Not Detected (NotDetected) 08/06/24 17:27 C. pneumoniae DNA (PCR) Not Detected (NotDetected) 08/06/24 17:27 Coronavirus OC43 (PCR) Not Detected (NotDetected) 08/06/24 17:27 Coronavirus HKU1 (PCR) Not Detected (NotDetected) 08/06/24 17:27 Coronavirus 229E (PCR) Not Detected (NotDetected) 08/06/24 17:27 SARS-CoV-2 (PCR) Not Detected (NotDetected) 08/06/24 17:27 Coronavirus NL63 (PCR) Not Detected (NotDetected) 08/06/24 17:27 Human Metapneumovir PCR Not Detected (NotDetected) 08/06/24 17:27 Influenza Type A (PCR) Not Detected (NotDetected) 08/06/24 17:27 Influenza Type B (PCR) Not Detected (NotDetected) 08/06/24 17:27 M. pneumoniae (PCR) Not Detected (NotDetected) 08/06/24 17:27 Parainfluenza 1 (PCR) Not Detected (NotDetected) 08/06/24 17:27 Parainfluenza 2 (PCR) Not Detected (NotDetected) 08/06/24 17:27 Parainfluenza 3 (PCR) Not Detected (NotDetected) 08/06/24 17:27 Parainfluenza 4 (PCR) Not Detected (NotDetected) 08/06/24 17:27 RSV (PCR) Not Detected (NotDetected) 08/06/24 17:27 Entero/Rhino (PCR) Not Detected (NotDetected) 08/06/24 17:27 Blood Type AB Positive 08/06/24 15:59 Antibody Screen NEGATIVE 08/06/24 15:59 Impressions Chest X-Ray 08/06/24 15:44 Chest radiograph, one view History: Chest pain Comparison: None Findings: Single AP view of the chest performed. Low lung volumes which results in crowding of the bronchovascular structures. No focal consolidation or pleural effusion. No pneumothorax. The cardiomediastinal silhouette is within normal limits. Normal pulmonary vascularity. No evidence for lymphadenopathy. No visualized bony or soft tissue abnormality. Impression: Normal chest radiograph Electronically signed by Hernandez Benítez 08-06-2024 4:[address] 08/06/24 15:[address] without contrast CT angiogram of the neck CT angiogram of the brain with contrast Provided History: Neuro deficit Comparison: None Technique: HEAD CT: Using multidetector thin collimation helical acquisition technique, axial, coronal and sagittal CT images from the skull base to the vertex were obtained without intravenous contrast. HEAD and NECK CTA: During rapid bolus intravenous injection of nonionic contrast material, axial images were obtained using thin collimation multidetector helical technique from the base of the neck through the Vertex of vertex of the head. This CT angiogram data was reconstructed at thin intervals with mild overlap. 3D reconstructions were obtained. The axial source images, multiplanar reformations, 3D reconstructions in both maximum intensity projection display and volume rendered models were reviewed. Dose reduction techniques were achieved by using automatic exposure control and/or adjustment of mA and/or kV according to patient size and/or use of iterative reconstruction technique. Findings: Head CT: There is no intracranial hemorrhage, mass effect, or midline shift. Gomez/white matter differentiation in both cerebral hemispheres is preserved. Ventricles are proportionate to the cerebral sulci. There is moderate cerebral atrophy. Moderate to marked, patchy low-attenuation changes in the white matter, most suggestive of sequelae of chronic small vessel ischemic disease. Left mastoid air cell effusion. Head CTA demonstrates no aneurysm or stenosis of the major intracranial arteries. Neck CTA demonstrates no stenosis of the major cervical arteries. The origins of the great vessels from the aortic arch are patent. The normal distal right internal carotid artery measures 5 mm. The normal distal left internal carotid artery measures 5 mm. No mass is noted within the visualized portions of the cervical soft tissues or lung apices. Impression: 1. Head CTA demonstrates no aneurysm or stenosis of the major intracranial arteries, 2. Neck CTA demonstrates no stenosis of the major cervical arteries. 3. No intracranial hemorrhage on the noncontrast head CT. Findings discussed with Dr. Aguirre by Dr. Benítez at 4:05 PM 08/06/2024 Electronically signed by Hernandez Benítez 08-06-2024 4:05 PM Head CTA 08/06/24 15:[address] without contrast CT angiogram of the neck CT angiogram of the brain with contrast Provided History: Neuro deficit Comparison: None Technique: HEAD CT: Using multidetector thin collimation helical acquisition technique, axial, coronal and sagittal CT images from the skull base to the vertex were obtained without intravenous contrast. HEAD and NECK CTA: During rapid bolus intravenous injection of nonionic contrast material, axial images were obtained using thin collimation multidetector helical technique from the base of the neck through the Vertex of vertex of the head. This CT angiogram data was reconstructed at thin intervals with mild overlap. 3D reconstructions were obtained. The axial source images, multiplanar reformations, 3D reconstructions in both maximum intensity projection display and volume rendered models were reviewed. Dose reduction techniques were achieved by using automatic exposure control and/or adjustment of mA and/or kV according to patient size and/or use of iterative reconstruction technique. Findings: Head CT: There is no intracranial hemorrhage, mass effect, or midline shift. Gomez/white matter differentiation in both cerebral hemispheres is preserved. Ventricles are proportionate to the cerebral sulci. There is moderate cerebral atrophy. Moderate to marked, patchy low-attenuation changes in the white matter, most suggestive of sequelae of chronic small vessel ischemic disease. Left mastoid air cell effusion. Head CTA demonstrates no aneurysm or stenosis of the major intracranial arteries. Neck CTA demonstrates no stenosis of the major cervical arteries. The origins of the great vessels from the aortic arch are patent. The normal distal right internal carotid artery measures 5 mm. The normal distal left internal carotid artery measures 5 mm. No mass is noted within the visualized portions of the cervical soft tissues or lung apices. Impression: 1. Head CTA demonstrates no aneurysm or stenosis of the major intracranial arteries, 2. Neck CTA demonstrates no stenosis of the major cervical arteries. 3. No intracranial hemorrhage on the noncontrast head CT. Findings discussed with Dr. Aguirre by Dr. Benítez at 4:05 PM 08/06/2024 Electronically signed by Hernandez Benítez 08-06-2024 4:05 PM Neck CTA 08/06/24 15:[address] without contrast CT angiogram of the neck CT angiogram of the brain with contrast Provided History: Neuro deficit Comparison: None Technique: HEAD CT: Using multidetector thin collimation helical acquisition technique, axial, coronal and sagittal CT images from the skull base to the vertex were obtained without intravenous contrast. HEAD and NECK CTA: During rapid bolus intravenous injection of nonionic contrast material, axial images were obtained using thin collimation multidetector helical technique from the base of the neck through the Vertex of vertex of the head. This CT angiogram data was reconstructed at thin intervals with mild overlap. 3D reconstructions were obtained. The axial source images, multiplanar reformations, 3D reconstructions in both maximum intensity projection display and volume rendered models were reviewed. Dose reduction techniques were achieved by using automatic exposure control and/or adjustment of mA and/or kV according to patient size and/or use of iterative reconstruction technique. Findings: Head CT: There is no intracranial hemorrhage, mass effect, or midline shift. Gomez/white matter differentiation in both cerebral hemispheres is preserved. Ventricles are proportionate to the cerebral sulci. There is moderate cerebral atrophy. Moderate to marked, patchy low-attenuation changes in the white matter, most suggestive of sequelae of chronic small vessel ischemic disease. Left mastoid air cell effusion. Head CTA demonstrates no aneurysm or stenosis of the major intracranial arteries. Neck CTA demonstrates no stenosis of the major cervical arteries. The origins of the great vessels from the aortic arch are patent. The normal distal right internal carotid artery measures 5 mm. The normal distal left internal carotid artery measures 5 mm. No mass is noted within the visualized portions of the cervical soft tissues or lung apices. Impression: 1. Head CTA demonstrates no aneurysm or stenosis of the major intracranial arteries, 2. Neck CTA demonstrates no stenosis of the major cervical arteries. 3. No intracranial hemorrhage on the noncontrast head CT. Findings discussed with Dr. Aguirre by Dr. Benítez at 4:05 PM 08/06/2024 Electronically signed by Hernandez Benítez 08-06-2024 4:05 PM Elbow X-Ray 08/06/24 16:23 Study: Left elbow 2 views History: Pain Comparison: None Findings: There is no acute fracture or dislocation. Alignment is anatomic. Joint spaces are well maintained. Small osteophytes of the radial head and distal humerus. There is no joint effusion or significant soft tissue swelling. Bone mineralization is normal. Impression: No acute bony abnormality Electronically signed by Hernandez Benítez 08-06-2024 5:22 PM Shoulder X-Ray 08/06/24 16:23 Study: Left shoulder 2 views History: Pain Comparison: None Findings: There is no acute fracture or dislocation. Alignment is anatomic. Joint spaces are well maintained. There is no joint effusion or significant soft tissue swelling. Bone mineralization is normal. Impression: No acute bony abnormality Electronically signed by Hernandez Benítez 08-06-2024 5:22 PM Brain MRI 08/07/24 17:15 MRI OF THE BRAIN WITHOUT CONTRAST CLINICAL HISTORY: Stroke like symptoms. COMPARISON STUDY: Head CT and CTA of the head August 06, 2024. TECHNIQUE: Utilizing a 1.5 Gwen magnet and dedicated coil, multiplanar, multiecho imaging of the brain was performed without IV contrast. FINDINGS: There are numerous small foci of restricted diffusion within the left frontal and parietal lobes. These are hypointense on the ADC map. There is no mass effect. There is no evidence for hemorrhagic conversion. Ventricular system is unremarkable. Basal cisterns are patent. There are no extra axial collections. Flow-voids for the major intracranial vessels are present. Extensive white matter T2 hyperintense foci suggest small vessel disease. Calvarial signal is normal. Large left mastoid effusion is incidentally noted. There is no fluid within the right mastoid air cells. IMPRESSION: 1. Numerous small foci of restricted diffusion within the left frontal and parietal lobes consistent with acute infarcts. The appearance suggests an embolic etiology. 2. No intracranial hemorrhage. No mass effect. 3. Extensive small vessel disease. 4. Left mastoid effusion. ACT 112: Negative or not required by law. Electronically signed by: Emilio Juarez M.D. 08/07/2024 1:45 PM Venous Doppler Study 08/08/24 10:02 BILATERAL LOWER EXTREMITY VENOUS DOPPLER CLINICAL HISTORY: PFO embolic stroke COMPARISON STUDY: No previous studies for comparison. TECHNIQUE: Sonography of the deep venous system of the bilateral lower extremities was performed. Compression and augmentation were evaluated. FINDINGS: The bilateral common femoral, superficial femoral and popliteal veins were compressible. Augmentation was normal. Flow was shown within the deep calf vessels. IMPRESSION: No evidence of deep venous thrombus within the bilateral lower extremities. ACT 112: Negative or not required by law. Electronically signed by: Emilio Juarez M.D. 08/08/2024 2:30 PM Ankle X-Ray 08/11/24 07:00 FL ankle RT min 3V RTN CLINICAL HISTORY: RIGHT ANKLE ORIF COMPARISON STUDY: Right ankle radiographs August 08, 2024. FLUOROSCOPY TIME: 28 seconds. carl Martinez: 1.01 mGy FLUOROSCOPIC IMAGES: 6 FINDINGS: Fluoroscopy was provided during open reduction and internal fixation of the distal right fibular fracture with plate and screws. Alignment appears anatomic. Hardware is intact. There are no unexpected radiopaque foreign bodies. IMPRESSION: Fluoroscopy provided during right ankle open reduction and internal fixation. ACT 112: Negative or not required by law. Electronically signed by: Emilio Juarez M.D. 08/12/2024 7:34 AM
[2024-08-12] MEDS: lisinopril 2.5 MG TAB PO SCH (20:53)
[2024-08-12] MEDS: oxyCODONE HCL IR 5 MG TAB (IMMEDIATE RELEASE) PO STA (21:05)
[2024-08-12] MEDS: MELATONIN 3 MG TAB PO PRN (21:06)
--- NOTE | 2024-08-12 23:24 | Hospitalist Progress Note ---
Date of Service August 12, 2024 Assessment & Plan (1) Stroke-like symptoms: (2) Right fibular fracture: (3) Hypertension: (4) Hypothyroidism: (5) Hyperlipidemia: Plan Patient is a 78-year-old female with a past medical history of Graves' disease, hypertension, hyperlipidemia, A-fib, neuropathy. She presents today as a stroke alert after her found her on the floor at 3 PM in her bedroom, last known well 08/05. The patient is confused and has expressive aphasia. she is here for stroke workup, CT head, head and neck CTAs negative for acute processes. She was also found to have a right distal fibular fracture. The patient does not remember falling. 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 likely embolic source not with afib as of yet to consider event monitor CXR negative - Biofire negative - telestroke recommends dual antiplatelet therapy, plavix load on admission, permissive hypertension - on Atorvastatin 40 mg daily now - adjust prn with lipid panel ordered since history of afib may need to discuss with neurology timing of starting AC -will proceed with surgery, holding eliquis. Surgery scheduled for 08/11 reviewed labs on 08/12 Blood pressure is now better controlled. Patient will be transferred of the ICU. D?W [employer]. #right fibular fracture, found on ground, immobilize and ortho consult: surgery repair on . #hypothyroidism History of Graves' disease s/p irradiation history of A-fib thought to be related to thyroid dysfunction, corrected TSH normal continue levothyroxine Chronic stable diagnoses: hx of a fib- NSR on monitor, continue carvedilol, not on chronic AC GERDcontinue famotidine Neuropathycontinue gabapentin Goutcontinue allopurinol VTE ppx: SCDs; deferred chemical PPx given stroke workup above Diet: repeat dysphagia screen ordered, if passes can advance to heart healthy diet - consult speech 08/07/24 passed dysphagia screen will need post discharge speech PT/OT eval Admission and Anticipated Discharge Date Admission Date: August 06, 2024 Subjective 78 yo femal reports no new symptoms Review of Systems Review of Systems: All systems reviewed & are unremarkable except as noted in HPI & below Physical Exam Physical Exam: no focal neurologic loss or facial asymetry cardiac is regular lungs are clear abd is soft and non tender Results & Data Results & Data Vital Signs (Past 12 Hours) Vital Signs Temp Pulse Pulse Resp BP BP BP 08/12/24 23:00 37.0 C 67 18 117/69 08/12/24 19:54 36.4 C L 68 18 152/72 H 08/12/24 19:26 08/12/24 16:06 64 15 08/12/24 16:00 79 08/12/24 15:00 36.6 C 08/12/24 14:16 140/81 08/12/24 14:15 68 15 08/12/24 14:03 67 13 08/12/24 13:45 71 20 08/12/24 12:06 70 23 08/12/24 11:57 75 18 Pulse Ox Pulse Ox O2 Del Method O2 Del Method 08/12/24 23:00 92 Room Air 08/12/24 19:54 95 Room Air 08/12/24 19:26 98 Room Air 08/12/24 16:06 08/12/24 16:00 08/12/24 15:00 08/12/24 14:16 08/12/24 14:15 94 Room Air 08/12/24 14:03 95 08/12/24 13:45 91 08/12/24 12:06 90 08/12/24 11:57 98 PG Care Time/CCT Total # of Minutes Spent Total Time Spent with Patient: Total time spent is greater than 50% in coordination of care (as documented) at patient's floor/unit and/or counseling patient: Coding Level of Care Code 04279 SUB INP/OBS CARE 2/35MIN Diagnoses Stroke-like symptoms R29.90 Right fibular fracture S82.401A Hypertension I10 Hypothyroidism E03.9 Hyperlipidemia E78.5
[2024-08-13] MEDS: oxyCODONE HCL IR 5 MG TAB (IMMEDIATE RELEASE) PO STA (03:16)
[2024-08-13] MEDS: CHOLECALCIFEROL 125 MCG (5,000 UNITS) TAB PO SCH (08:24)
[2024-08-13 08:35] LABS: BUN Creatinine Ratio 27.4 (10-20); Calcium 8.9 mg/dl (8.6-10.3); Magnesium 1.9 mg/dl (1.7-2.4); Phosphorus 3.3 mg/dl (2.5-4.9); Potassium 3.7 mmol/L (3.5-5.1)
[2024-08-13] MEDS ORDERED: ACETAMINOPHEN 325 MG TAB PO SCH (13:00)
[2024-08-13] MEDS: traMADol HCL 50 MG TABLET PO STA (13:10)
--- NOTE | 2024-08-13 15:20 | Orthopedic Progress Note ---
Date of Service August 13, 2024 Assessment & Plan (1) Status post ORIF of fracture of ankle: Plan: Postop day 2-status post ORIF right distal fibula fracture Splint on right lower extremity clean, dry and intact. May be out of bed, nonweightbearing right lower extremity with walker assistance. PT/OT Pain controlled p.o. medication DVT prophylaxis per medicine service discretion. Eliquis has been resumed. Intraoperative x-rays were reviewed with the patient and her family. Ice to right ankle as needed for pain. Elevate right lower extremity as needed for swelling. Elevate heels off of bed. Will continue to follow while inpatient. Follow-up at [facility] orthopedics with Dr. De Paz as previously scheduled. Admission and Anticipated Discharge Date Admission Date: August 06, 2024 Subjective Patient is resting in bed. Her family is at bedside. She states she does have a little more pain today than yesterday. No longer noting any tingling in her toes. Has her leg elevated on 2 pillows. She states that she has been trying to do her best to keep her weight off of her ankle. She has been out of bed with nursing and therapist with a walker. Physical Exam Musculoskeletal: Exam of the right lower extremity: She is a 1 independently straight leg raise. She can flex her knee to 90. No edema of her toes. Distal sensation is normal. Capillary fill is brisk. Dorsalis pedis pulses 1+. Splint is clean, dry and intact. The skin is intact around splint edges. Results & Data Vital Signs (Past 12 Hours) Vital Signs Temp Pulse Pulse Resp BP Pulse Ox O2 Del Method 08/13/24 11:44 36.5 C 56 L 19 177/93 H 97 Room Air 08/13/24 08:00 62 08/13/24 07:41 36.6 C 58 L 18 151/81 H 95 Room Air Laboratory Results 08/13/24 Range/Units 07:47 Sodium 140 (136-145) mmol/L Potassium 3.7 (3.5-5.1) mmol/L Chloride 109 H (98-107) mmol/L Carbon Dioxide 25 (21-32) mmol/L Anion Gap 6 (3-11) BUN 20 (6-23) mg/dl Creatinine 0.73 (0.6-1.2) mg/dl Est Cr Clr Drug Dosing 72.0 ml/min eGFR 83.60 BUN/Creatinine Ratio 27.4 H (10-20) Glucose 129 H (70-99(Fasting)) mg/dl Calcium 8.9 (8.6-10.3) mg/dl Phosphorus 3.3 (2.5-4.9) mg/dl Magnesium 1.9 (1.7-2.4) mg/dl 25-OH Vitamin D Total 37.9 (30-100) ng/ml
[2024-08-13] MEDS: ACETAMINOPHEN 325 MG TAB PO SCH (17:32)
--- NOTE | 2024-08-13 22:32 | Hospitalist Progress Note ---
Date of Service August 13, 2024 Assessment & Plan (1) Stroke-like symptoms: (2) Right fibular fracture: (3) Hypertension: (4) Hypothyroidism: (5) Hyperlipidemia: Plan Patient is a 78-year-old female with a past medical history of Graves' disease, hypertension, hyperlipidemia, A-fib, neuropathy. She presents today as a stroke alert after her found her on the floor at 3 PM in her bedroom, last known well 08/05. The patient is confused and has expressive aphasia. she is here for stroke workup, CT head, head and neck CTAs negative for acute processes. She was also found to have a right distal fibular fracture. The patient does not remember falling. 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 likely embolic source not with afib as of yet to consider event monitor CXR negative - Biofire negative - on Atorvastatin 40 mg daily now - adjust prn with lipid panel ordered since history of afib: on eliquis as her carotids and intracranial vessels appear to not have significant atheromatous disease, her stroke is probably cardioembolic; no need for aspirin and plavix. d/w neurologist. -S/P surgery repair on 08/11 reviewed labs on 08/13 Blood pressure is now better controlled with lisinopril 2.5 mg PO HS. Patient now on PCU. will monitor. #right fibular fracture, found on ground, immobilize and ortho consult: surgery repair on . #hypothyroidism History of Graves' disease s/p irradiation history of A-fib thought to be related to thyroid dysfunction, corrected TSH normal continue levothyroxine Chronic stable diagnoses: hx of a fib- NSR on monitor, continue carvedilol, not on chronic AC GERDcontinue famotidine Neuropathycontinue gabapentin Goutcontinue allopurinol VTE ppx: SCDs; deferred chemical PPx given stroke workup above Diet: repeat dysphagia screen ordered, if passes can advance to heart healthy diet - consult speech 08/07/24 passed dysphagia screen will need post discharge speech PT/OT eval Admission and Anticipated Discharge Date Admission Date: August 06, 2024 Subjective 78 yo female reports having pain in her affected foot. Review of Systems Review of Systems: All systems reviewed & are unremarkable except as noted in HPI & below Physical Exam Physical Exam: no focal neurologic loss or facial asymetry cardiac is regular lungs are clear abd is soft and non tender Results & Data Results & Data Vital Signs (Past 12 Hours) Vital Signs Temp Pulse Resp BP BP Pulse Ox O2 Del Method 08/13/24 19:34 36.6 C 64 18 185/96 H 93 Room Air 08/13/24 16:26 36.8 C 67 19 196/95 H 194/110 H 95 Room Air 08/13/24 11:44 36.5 C 56 L 19 177/93 H 97 Room Air PG Care Time/CCT Total # of Minutes Spent Total Time Spent with Patient: Total time spent is greater than 50% in coordination of care (as documented) at patient's floor/unit and/or counseling patient: Coding Level of Care Code 29951 SUB INP/OBS CARE 3/50MIN Diagnoses Stroke-like symptoms R29.90 Right fibular fracture S82.401A Hypertension I10 Hypothyroidism E03.9 Hyperlipidemia E78.5
[2024-08-14 05:56] LABS: Hematocrit (blood only) 35.3 % (37.0-47.0); Hemoglobin 12.2 g/dl (12.0-16.0); Mean Corpuscular Hemoglobin 31.2 pg (25.0-34.0); Mean Corpuscular Hgb Conc 34.6 g/dL (32.0-36.0); Mean Corpuscular Volume 90.3 fL (80.0-100.0); Mean Platelet Volume 9.2 fL (9.4-12.4); Platelet Count 285 K/uL (130-400); RDW Coefficient of Variation 12.6 % (11.5-14.5); RDW Standard Deviation 41.5 fL (36.4-46.3); Red Blood Count 3.91 M/uL (4.20-5.40)
[2024-08-14 06:22] LABS: BUN Creatinine Ratio 21.2 (10-20); Creatinine Clr Calc Pharmacy 79.6 ml/min; Magnesium 1.8 mg/dl (1.7-2.4); Phosphorus 2.9 mg/dl (2.5-4.9); Potassium 3.5 mmol/L (3.5-5.1)
[2024-08-14] MEDS: traMADol HCL 50 MG TABLET PO STA (09:02)
[2024-08-14] MEDS: lisinopril 2.5 MG TAB PO ONE (09:26)
--- NOTE | 2024-08-14 10:34 | Hospitalist Progress Note ---
Date of Service August 14, 2024 Assessment & Plan (1) Stroke-like symptoms: (2) Right fibular fracture: (3) Hypertension: (4) Hypothyroidism: (5) Hyperlipidemia: Plan Patient is a 78-year-old female with a past medical history of Graves' disease, hypertension, hyperlipidemia, A-fib, neuropathy. She presents today as a stroke alert after her found her on the floor at 3 PM in her bedroom, last known well 08/05. The patient is confused and has expressive aphasia. she is here for stroke workup, CT head, head and neck CTAs negative for acute processes. She was also found to have a right distal fibular fracture. The patient does not remember falling. 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 likely embolic source not with afib as of yet to consider event monitor CXR negative - Biofire negative - on Atorvastatin 40 mg daily now - adjust prn with lipid panel ordered since history of afib: on eliquis as her carotids and intracranial vessels appear to not have significant atheromatous disease, her stroke is probably cardioembolic; no need for aspirin and plavix. d/w neurologist. reviewed labs on 08/15 As blood pressure remains elevated, will increase lisinopril to 5 mg PO HS. Ordered miralax for bowel movement.s Patient now on PCU. will monitor. #right fibular fracture, found on ground, immobilize and ortho consult: -S/P surgery repair on 08/11 #hypothyroidism History of Graves' disease s/p irradiation history of A-fib thought to be related to thyroid dysfunction, corrected TSH normal continue levothyroxine Chronic stable diagnoses: hx of a fib- NSR on monitor, continue carvedilol, not on chronic AC GERDcontinue famotidine Neuropathycontinue gabapentin Goutcontinue allopurinol VTE ppx: SCDs; deferred chemical PPx given stroke workup above Diet: repeat dysphagia screen ordered, if passes can advance to heart healthy diet - consult speech 08/07/24 passed dysphagia screen will need post discharge speech PT/OT eval Admission and Anticipated Discharge Date Admission Date: August 06, 2024 Subjective 78 yo male reports no new symptoms. Patient states she has pain in her affected leg and states it is heavy. Physical Exam Physical Exam: no focal neurologic loss or facial asymetry cardiac is regular lungs are clear abd is soft and non tender Results & Data Results & Data Vital Signs (Past 12 Hours) Vital Signs Temp Pulse Pulse Resp BP BP Pulse Ox 08/14/24 10:29 66 161/95 H 92 08/14/24 08:27 68 178/85 H 95 08/14/24 07:32 36.7 C 72 19 198/100 H 205/113 H 97 08/14/24 07:09 77 08/14/24 03:07 36.7 C 66 18 176/82 H 95 08/13/24 23:12 36.4 C L 61 18 180/86 H 94 08/13/24 22:46 62 O2 Del Method 08/14/24 10:29 Room Air 08/14/24 08:27 Room Air 08/14/24 07:32 Room Air 08/14/24 07:09 08/14/24 03:07 Room Air 08/13/24 23:12 Room Air 08/13/24 22:46 PG Care Time/CCT Total # of Minutes Spent Total Time Spent with Patient: Total time spent is greater than 50% in coordination of care (as documented) at patient's floor/unit and/or counseling patient: Coding Level of Care Code 85700 SUB INP/OBS CARE 3/50MIN Diagnoses Stroke-like symptoms R29.90 Right fibular fracture S82.401A Hypertension I10 Hypothyroidism E03.9 Hyperlipidemia E78.5
[2024-08-14] MEDS: DOCUSATE SODIUM 100 MG CAP PO PRN (20:01)
[2024-08-14] MEDS: lisinopril 5 MG TAB PO SCH (20:01)
[2024-08-14 22:18] VITALS: RESP 18
[2024-08-15 06:41] LABS: Hematocrit (blood only) 35.3 % (37.0-47.0); Hemoglobin 12.3 g/dl (12.0-16.0); Mean Corpuscular Hemoglobin 31.1 pg (25.0-34.0); Mean Corpuscular Hgb Conc 34.8 g/dL (32.0-36.0); Mean Corpuscular Volume 89.4 fL (80.0-100.0); Mean Platelet Volume 9.2 fL (9.4-12.4); Platelet Count 299 K/uL (130-400); RDW Coefficient of Variation 12.5 % (11.5-14.5); RDW Standard Deviation 41.4 fL (36.4-46.3); Red Blood Count 3.95 M/uL (4.20-5.40)
--- NOTE | 2024-08-15 06:52 | Hospitalist Progress Note ---
Date of Service August 14, 2024 Assessment & Plan (1) Stroke-like symptoms: (2) Right fibular fracture: (3) Hypertension: (4) Hypothyroidism: (5) Hyperlipidemia: Plan Patient is a 78-year-old female with a past medical history of Graves' disease, hypertension, hyperlipidemia, A-fib, neuropathy. She presents today as a stroke alert after her found her on the floor at 3 PM in her bedroom, last known well 08/05. The patient is confused and has expressive aphasia. she is here for stroke workup, CT head, head and neck CTAs negative for acute processes. She was also found to have a right distal fibular fracture. The patient does not remember falling. 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 likely embolic source not with afib as of yet to consider event monitor CXR negative - Biofire negative - on Atorvastatin 40 mg daily now - adjust prn with lipid panel ordered since history of afib: on eliquis as her carotids and intracranial vessels appear to not have significant atheromatous disease, her stroke is probably cardioembolic; no need for aspirin and plavix. d/w neurologist. reviewed labs on 08/15 As blood pressure remains elevated, will increase lisinopril to 5 mg PO HS. Ordered miralax for bowel movement.s Patient now on PCU. will monitor. *Hypertensive emergency Presents with ischemic CVA, aphasia. BP 191/109-200/131-220/153. Pt treated with IV Labetolol Risk Factor(s): As above, Hx HTN, afib Treatment: CT/MRI, IV Labetolol, telemetry #right fibular fracture, found on ground, immobilize and ortho consult: -S/P surgery repair on 08/11 #hypothyroidism History of Graves' disease s/p irradiation history of A-fib thought to be related to thyroid dysfunction, corrected TSH normal continue levothyroxine Chronic stable diagnoses: hx of a fib- NSR on monitor, continue carvedilol, not on chronic AC GERDcontinue famotidine Neuropathycontinue gabapentin Goutcontinue allopurinol VTE ppx: SCDs; deferred chemical PPx given stroke workup above Diet: repeat dysphagia screen ordered, if passes can advance to heart healthy diet - consult speech 08/07/24 passed dysphagia screen will need post discharge speech PT/OT eval Admission and Anticipated Discharge Date Admission Date: August 06, 2024 Results & Data Results & Data Vital Signs (Past 12 Hours) Vital Signs Temp Pulse Pulse Resp BP Pulse Ox O2 Del Method 08/15/24 03:06 36.6 C 60 18 165/84 H 91 Room Air 08/14/24 23:00 54 L 08/14/24 22:17 36.6 C 63 18 171/99 H 92 Room Air 08/14/24 19:26 36.7 C 64 20 184/100 H 95 Room Air PG Care Time/CCT Total # of Minutes Spent Total Time Spent with Patient: Total time spent is greater than 50% in coordination of care (as documented) at patient's floor/unit and/or counseling patient: Coding Level of Care Code None Diagnoses Stroke-like symptoms R29.90 Right fibular fracture S82.401A Hypertension I10 Hypothyroidism E03.9 Hyperlipidemia E78.5
[2024-08-15 07:01] LABS: BUN Creatinine Ratio 19.7 (10-20); Calcium 9.3 mg/dl (8.6-10.3); Creatinine Clr Calc Pharmacy 73.7 ml/min; Magnesium 1.8 mg/dl (1.7-2.4); Phosphorus 3.5 mg/dl (2.5-4.9); Potassium 3.4 mmol/L (3.5-5.1)
[2024-08-15 07:52] VITALS: O2SAT 94
--- NOTE | 2024-08-15 08:46 | Orthopedic Progress Note ---
Date of Service August 15, 2024 Assessment & Plan (1) Closed fracture of distal end of right fibula: Plan Doing well. Continue to elevate ice. Nonweightbearing. Will continue to monitor her surgical healing. If she is discharged she will need to follow-up with me 2 weeks after her surgical date. Williams for DVT prophylaxis.Vitamin D supplementation. Admission and Anticipated Discharge Date Admission Date: August 06, 2024 Orthopedic Progress Note She is resting comfortably in bed. She reports that her pain is well- controlled. She also reports that she has been able to get up with PT and maintain nonweightbearing status. She reports that [facility] will [facility] in the near future. White count 9 hemoglobin 12 hematocrit 35. The splint is changed. The bottom of the splint is clean. She can wiggle her toes and actively flex and extend the ankle strength is 4+ to 5- out of 5. DP and PT pulses are not palpable however the foot is warm with capillary refill brisk less than 2 seconds throughout the foot. Examination of the surgical incision reveals bruising. Inflammatory type redness around the incision and lateral ankle. Bruising into the dorsal forefoot with some inflammatory type redness. Bruising along the lateral hindfoot. There is 1 small blister 1 cm in size posterior skin flap. A couple pinpoint blisters anterior. There is no drainage or fluctuance. Sensation intact throughout the foot. Her heel is okay. Xeroform ABD for the heel gauze and ABD for the incision are applied and her splint and Forest wrap are reapplied.
[2024-08-15] MEDS ORDERED: METOPROLOL TARTRATE 25 MG TAB PO SCH (09:00)
[2024-08-15] MEDS: POTASSIUM CHLORIDE CRTAB 20 MEQ TABCR PO STA (09:00)
[2024-08-15 11:36] VITALS: TEMP 99
[2024-08-15 13:27] VITALS: BP 205/113; PULSE 74
--- NOTE | 2024-08-15 13:27 | Discharge Summary ---
Discharge Summary Date of Service August 15, 2024 Principal Dx & Hospital Course #1 = Principal Diagnosis (1) Ischemic stroke: (2) History of atrial fibrillation: (3) Right fibular fracture: (4) Hypertension: (5) Hypothyroidism: (6) Hyperlipidemia: Plan Patient is a 78-year-old female with a past medical history of Graves' disease, hypertension, hyperlipidemia, A-fib, neuropathy. She presented as a stroke alert after her found her on the floor at 3 PM in her bedroom, last known well 08/05. The patient was confused and had expressive aphasia. CT head, head and neck CTAs negative for acute processes. She was also found to have a right distal fibular fracture. The patient does not remember falling. # Acute ischemic likely embolic stroke in left frontal and parietal lobes found on MRI brain CT head negative, Head/Neck CTA negative, echo + for possible PFO and with small pericardial effusion without tamponade; bilateral lower extremity venous Dopplers negative, likely embolic source given history of paroxysmal atrial fibrillation not on anticoagulation Lipid panel acceptable but atorvastatin increased to 40 mg daily for high intensity statin Hemoglobin A1c not in diabetic range Blood pressures remain significantly elevated-continue home carvedilol 12.5 Mg p.o. twice daily and added lisinopril 5 mg at bedtime-can be titrated upward as outpatient at rehab Follow BMP in 1 week after starting lisinopril No A-fib here on telemetry was seen but needs 30-day cardiac event monitor to look for atrial fibrillation burden. Cardiology recommends outpatient cardiology follow-up after discharge Started Eliquis 5 Mg p.o. twice daily *Hypertensive emergency Presents with ischemic CVA, aphasia. BP 191/109-200/131-220/153. Pt treated with IV Labetolol Added lisinopril and resume home carvedilol which was held initially for permissive hypertension #right fibular fracture, found on ground, immobilize and ortho consult: -S/P surgery repair on 08/11 Is in splint and Forest [id number] with orthopedics 2 weeks from surgery date Remain nonweightbearing #hypothyroidism History of Graves' disease s/p irradiation, TSH here is normal continue levothyroxine Chronic stable diagnoses: GERDcontinue famotidine Neuropathycontinue gabapentin Goutcontinue allopurinol Asymptomatic bacteriuria-UTI - UA appears noninfectious, was given Rocephin prophylactically in ED; will defer further antibiotic therapy at this time unless cultures show otherwise VTE ppx: SCDs; Eliquis Disposition-stable for discharge to acute rehab, remove Suarez catheter prior to discharge Notes For Next Care Provider Check BMP in 1 week Needs 30-day cardiac event monitor Needs follow-up with orthopedic surgery 2 weeks from surgery date Medication Changes From Visit Added Eliquis 5 Mg p.o. twice daily Increase atorvastatin to 40 mg p.o. daily Added scheduled Tylenol 650 Mg p.o. 4 times daily for pain Admission HPI Per Admitting Provider Patient is a 78-year-old female with a past medical history of Graves' disease, hypertension, hyperlipidemia, A-fib, neuropathy. She presents today as a stroke alert after her found her on the floor at 3 PM in her bedroom, last known well 08/05. The patient is confused and has expressive aphasia. she is here for stroke workup, CT head, head and neck CTAs negative for acute processes. She was also found to have a right distal fibular fracture. The patient is unable to follow commands and stated that she does not remember falling. The following history was provided by the patient's who found her on the floor today. He stated that they have separate bedrooms and he went about his morning activities and realize he had not seen her for that encounter at 3 PM. He suspect she did not take her home medications this morning. He denies any evidence of bladder or bowel incontinence, denies possibility of seizure. He stated the bed was messy and there was pillows on the floor. She has denied falling to him and provider at bedside. She uses no assistive devices at baseline. She has no cognitive deficits at baseline. She has never had a stroke before similar symptoms. She has no history of DM or previous VTE. She does not smoke or drink alcohol. She has a living will stating DNR/DNI status. The patient is able to respond yes and now; she denies flulike symptoms, rhinorrhea, sore throat, cough, congestion. The patient denies dysuria, hematuria, difficulty urinating, current pain, abdominal pain, dizziness. The patient's family stated that she will likely not be able to sit still for MRI, discussed using Ativan but after discussion with Dr. Loving, decided that could skew neurochecks. Will defer using Ativan for MRI at this time. MRI off duty for the evening, will attempt MRI in the morning when patient may be able to tolerate better. Discharge Exam Constitutional WD/WN, vitals as above Eyes PERRL, conjunctivae normal, anicteric sclerae ENMT external ear and nose normal, oropharynx normal Neck trachea midline, no thyromegaly Respiratory normal respiratory effort, lungs clear to auscultation Cardiovascular RRR, no murmur, no edema Chest (Breasts) Chest: normal inspection of chest Gastrointestinal (Abdomen) normal bowel sounds, soft, nontender, no hepatosplenomegaly Musculoskeletal Extremities: + extremities abnormal to inspection (Right leg in splint with Forest wrap not removed), no cyanosis and no clubbing Skin no rashes, warm and dry Neurologic moves all extremities and awake; no focal motor deficits Psychiatric A+Ox3, euthymic affect Lymphatic no lymphedema Discharge Plan Discharge Items Patient Disposition: Transfer Inpatient Rehab Fac Reason For Visit: STROKE WORKUP Discharge Diagnosis: Acute ischemic CVA, suspect embolic Right distal fibula fracture Activity: As commented below Non-emergency contact: Primary Care Provider and Surgeon Call non-emergency contact if: you have any medication questions and your symptoms worsen Follow-up/Referrals: Halima Cadena PA-C [Physician Digital Imaging Specialist] - 08/23/24 11:00 am Tonja Vaughan DO [Primary Care Provider] - Diet: Heart Healthy Addtl Attending Provider Instructions: You were started on Eliquis because of your previous history of atrial fibrillation which may have caused your stroke. Your cholesterol medicine was also increased and dosing to higher intensity. Your blood pressure needs better control lisinopril as tolerated this. The lisinopril dose could be increased over time as needed. Please follow-up with a warble saw operator after discharge and you will also need a 30-day event monitor to look for atrial fibrillation. Risk Factors for Stroke: You can reduce your chances of stroke by working with your medical provider to adopt a healthy lifestyle. Some specific ways to lower your chance of stroke are: * If you are a smoker, now is the time to stop smoking cigarettes * If you are diabetic, improve the control of your blood sugars * Avoid excessive amounts of alcohol * Control high blood pressure * Lose weight if you are overweight * Be sure to lead an active lifestyle * Eat a healthy diet low in salt, cholesterol and fat You should know about other risk factors for stroke that you are unable to control. These include: * Age 55 years or older * Male gender * Certain racial groups: , or / * Family History of Stroke, Mini stroke or Heart Attack * Sickle Cell Disease Follow Up: It is important for you to keep your follow up appointments with your medical provider. Who to Call and When: Medical Emergencies: Call 911 immediately if you experience any of the following warning signs and symptoms of Stroke: * Sudden numbness or weakness of the face, arm or leg, especially on one side of the body * Sudden confusion, trouble speaking or understanding * Sudden trouble seeing in one or both eyes * Sudden trouble walking, dizziness, loss of balance or coordination * Sudden severe headache with no cause Do not delay calling 911 if you experience any warning signs or symptoms of a stroke. Delay in seeking medical attention may affect what treatments can be given to you. . Addtl Automotive Drivability Technician Provider Instructions: Orthopedic instructions: -Nonweightbearing on right lower extremity times. Use walker to assist with ambulation at all times. -Physical therapy/Occupational Therapy -Eliquis for DVT prophylaxis. -Keep splint on at all times. Keep it clean and dry. Keep covered while bathing. -Elevate right lower extremity above your heart to relieve pain and swelling. -Ice to right lower extremity as needed for pain and swelling. -Allowed to wiggle toes, bend knee and move right hip as tolerated. -Call [phone] with any issues such as increased pain, swelling, fevers, chills or drainage from incision. Call this number with any questions or need to reschedule or confirm appointment. Pending Studies at Discharge: No Stand-Alone Forms: My [facility], Medications to Prevent Stroke Skilled Items Patient informed of condition?: Yes DNR: Yes Discharge Level of Care: Acute rehab Communicable Disease: No Discharge Prognosis: Improving Lines: None Urinary Catheter: No Medications and DC Order Prescriptions: New atorvastatin 40 mg Tablet 40 mg PO QPM Qty: 30 0RF acetaminophen 325 mg Tablet 650 mg PO QID Qty: 30 0RF lisinopril 5 mg Tablet 5 mg PO PM Qty: 30 0RF cholecalciferol (vitamin D3) 125 mcg (5,000 unit) Tablet 125 mcg PO QAM Qty: 30 0RF Eliquis 5 mg Tablet 5 mg PO BID Qty: 60 0RF Continued sennosides-docusate sodium [Senokot-S] 8.6-50 mg tablet 1 tab-cap PO DAILY Qty: 14 0RF Rx Instructions: 08/06/24- otc unable to verify Take daily to prevent constipation sennosides [Senokot] 8.6 mg tablet 8.6 mg PO BID 14 Days Qty: 28 0RF Rx Instructions: 08/06/24- otc unable to verify Take two times a day to prevent/treat constipation famotidine 10 mg tablet 10 mg PO BID Rx Instructions: No record w/pharmacy. OTC unable to verify carvedilol 12.5 mg tablet 12.5 mg PO BID Rx Instructions: last filled November 29, 2023 must administer with a meal/food levothyroxine 100 mcg capsule 100 mcg PO QAM Rx Instructions: Last filled Sep 19 2023 gabapentin 100 mg capsule 100 mg PO HS Rx Instructions: last filled November 29 2023 allopurinol 100 mg tablet 100 mg PO DAILY Rx Instructions: last filled November 29 2023 simethicone [Gas Relief (simethicone)] 125 mg Capsule 125 mg PO BID Rx Instructions: 08/06/24- otc unable to verify cholecalciferol (vitamin D3) [Vitamin D3] 125 mcg (5,000 unit) Tablet 50,000 unit PO Q30D Rx Instructions: last filled November 29 2023 Systane Complete 0.6 % Drops 1 drp ophthalmic (eye) QAM PRN (Reason: Dry Eyes) Rx Instructions: 08/06/24- otc unable to verify Discontinued atorvastatin 20 mg tablet 20 mg PO QPM Rx Instructions: last filled sep 19 Discharge Orders: Discharge Order (Routine); Ordered 08/15/24 Ordered By: Yuliana Garcia/Other Patient Handouts: Prediabetes, 5 Steps for Eating Healthier Admission Data Admit Date/Time: 08/06/24 17:46 Attending Provider: Yuliana Brito Admit Provider: Marques Loving Primary Care Provider: Tonja Vaughan Other Providers: [facility]; Brad Parker; Marques Loving; Mauricio De Paz; Merrill Miller; Santiago Colon; Sunil Bhatt; Samuel Escobar; Christian Paul; Manny Deng Jr; Larry Hanna; Chioma Coronado; Jodie Baker; Hernandez Herbert; Hernandez Boyd; Regulo Martinez; Halima Griffith; Jair Keyes; Rita Vyas; Richie Kenny; Jair Holman; Mata Henry; Tj Albright; [facility] Stay Data Consultations 08/06/24 17:16 Consult Neurology Routine 08/06/24 17:31 ED Decision to Admit Stat 08/06/24 19:48 Consult Orthopedic Surgery Routine 08/08/24 16:02 Consult Cardiology Routine 08/11/24 18:56 Consult Radio Broadcaster Routine Procedures Performed Operation Date: 08/11/24 13:45 Actual Procedures p Exam Under Anesthesia, Right Ankle Open Reduction Internal Fixation(Right) - Mauricio De Paz MD Diagnostic Imagining Performed 08/06/24 15:44 CT angio head w con Stat CT angio neck with con Stat CT head/brain wo con Stat 08/07/24 17:15 MR brain wo con Urgent 08/08/24 10:02 US venous doppler LE BI Routine 08/11/24 07:00 FL ankle RT min 3V RTN Routine 08/11/24 14:47 US - OR guided needle placemen Routine Echocardiogram Pending Results Patient Have Any Pending Studies at Discharge: No Discharge Instructions Given to Patient (Per Discharging Provider) You were started on Eliquis because of your previous history of atrial fibrillation which may have caused your stroke. Your cholesterol medicine was also increased and dosing to higher intensity. Your blood pressure needs better control lisinopril as tolerated this. The lisinopril dose could be increased over time as needed. Please follow-up with a warble saw operator after discharge and you will also need a 30-day event monitor to look for atrial fibrillation. Risk Factors for Stroke: You can reduce your chances of stroke by working with your medical provider to adopt a healthy lifestyle. Some specific ways to lower your chance of stroke are: * If you are a smoker, now is the time to stop smoking cigarettes * If you are diabetic, improve the control of your blood sugars * Avoid excessive amounts of alcohol * Control high blood pressure * Lose weight if you are overweight * Be sure to lead an active lifestyle * Eat a healthy diet low in salt, cholesterol and fat You should know about other risk factors for stroke that you are unable to control. These include: * Age 55 years or older * Male gender * Certain racial groups: , or / * Family History of Stroke, Mini stroke or Heart Attack * Sickle Cell Disease Follow Up: It is important for you to keep your follow up appointments with your medical provider. Who to Call and When: Medical Emergencies: Call 911 immediately if you experience any of the followin g warning signs and symptoms of Stroke: * Sudden numbness or weakness of the face, arm or leg, especially on one side of the body * Sudden confusion, trouble speaking or understanding * Sudden trouble seeing in one or both eyes * Sudden trouble walking, dizziness, loss of balance or coordination * Sudden severe headache with no cause Do not delay calling 911 if you experience any warning signs or symptoms of a stroke. Delay in seeking medical attention may affect what treatments can be given to you. . Total Time Total Time Spent Total Time Spent (In Minutes): 35 minutes Total Time Includes: Examination of the Patient, Discharge Planning and Medication Reconciliation Coding Level of Care Code 61396 INP/OBS DISCH >30 MIN Diagnoses Ischemic stroke I63.9 History of atrial fibrillation Z86.79 Right fibular fracture S82.401A Hypertension I10 Hypothyroidism E03.9 Hyperlipidemia E78.5
[2024-08-15] MEDS ORDERED: carvediloL 12.5 MG TAB PO SCH (17:00)
== END 2024-08-15 14:23 | DRG 982 ==
LOC: ED 15:42 → EDINP 17:46 → SUATTDRO 17:46 → 2S 19:48 → 1E 08-11 19:51 → 2S 08-12 18:32